=== PATIENT | male | born 1950 | race Caucasian/White ===

== ENCOUNTER → 2018-02-24 09:45 | Outpatient (CLI) | payer MEDICARE, SELFPAY ==
--- NOTE | 2018-02-24 | DI.RAD.S_ITS ---
PROCEDURE: XR LUMBAR SPINE 2-3V INDICATIONS: lumbar BACK PAIN TECHNIQUE: 3 views of the lumbar spine were acquired. COMPARISON: [facility], MR, L-SPINE WITHOUT CONTRAST, 02/07/2014, 15:25. [facility], CR, SPINE LUMB 2 OR 3VW, 03/02/2014, 13:31. FINDINGS: Bones: By [id number] vertebrae are present. There is levoconvex scoliosis with slight retrolisthesis at L2-3, and L4-5. No vertebral body compression fractures. No suspicious bony lesions. Reactive sclerosis at the vertebral endplates, most marked at L3-4. Multilevel disc degeneration. Facet sclerosis L5-S1. Soft tissues: Overlying bowel gas pattern is normal. No suspicious soft tissue calcifications. IMPRESSION: No acute bony abnormality. Multilevel degenerative disc disease. Dictated by: Juanjose Guzman M.D. on 02/24/2018 at 10:46 Approved by: Juanjose Guzman M.D. on 02/24/2018 at 10:55
== END ==
PROVIDERS: PCP Physician Assistant; Visit Provider Chiropractor
DX: M51.36 Other intervertebral disc degeneration, lumbar region (principal); M54.5 Low back pain
CPT/HCPCS: 72100

== ENCOUNTER → 2018-03-15 09:28 | Outpatient (CLI) | payer MEDICARE, SELFPAY ==
[2018-03-15 10:39] LABS: Hemoglobin A1C% w Est Avg Glu 5.4 % (4.0-6.0)
[2018-03-15 10:58] LABS: Alanine Aminotransferase 25 IU/L (21-72); Albumin 4.2 g/dL (3.5-5.0); Albumin Globulin Ratio 1.6 (1.0-2.8); Alkaline Phosphatase 32 U/L (38-126); Aspartate Aminotransferase 17 IU/L (17-59); Bilirubin Total 0.8 mg/dL (0.2-1.3); Blood Urea Nitrogen 25 mg/dL (9-20); Calcium 9.6 mg/dL (8.4-10.2); Carbon Dioxide 29 mmol/L (22-32); Chloride 101 mmol/L (98-107); Cholesterol 192 mg/dL (140-199); Estimated Glomerular Filt Rate > 60.0 mL/min (>60); Globulin 2.7 g/dL (1.7-4.1); Glucose 108 mg/dL (80-110); HDL Cholesterol 48 mg/dL (40-60); HEMOLYSIS < 15 (0-50); LDL Cholesterol Calculated 120 mg/dL (<100); Potassium 4.9 mmol/L (3.4-5.1); Sodium 141 mmol/L (137-145); Total Protein 6.9 g/dL (6.3-8.2); Triglycerides 119 mg/dL (35-150); Uric Acid 5.1 mg/dL (3.5-8.5)
[2018-03-15 13:48] LABS: Creatinine Urine Random 93.1 mg/dL
[2018-03-15 13:53] LABS: Microalbumi Creatinin Ratio Ur 6.4 ug/mg CR (<30); Microalbumin Urine Random < 0.6 mg/dL (0-1.6)
== END ==
PROVIDERS: PCP Physician Assistant; Visit Provider Physician Assistant
DX: N28.9 Disorder of kidney and ureter, unspecified (principal); I10 Essential (primary) hypertension; E78.5 Hyperlipidemia, unspecified; E11.9 Type 2 diabetes mellitus without complications
CPT/HCPCS: 36415; 80053; 80061; 82043; 82570; 83036; 84550

== ENCOUNTER 2018-05-09 20:53 | Emergency (ER) | payer MEDICARE, SELFPAY ==
[2018-05-09 20:56] VITALS: BP 159/72; PULSE 46; RESP 14; TEMP 36.9; O2SAT 97; BMI 28.7
--- NOTE | 2018-05-09 21:06 | ED.MALEGU ---
HPI - Male Genitourinary General Chief complaint: Urogenital-Male Stated complaint: PELVIC PAIN Time Seen by Provider: 05/09/18 21:06 Source: patient Mode of arrival: ambulatory Limitations: no limitations History of Present Illness HPI Narrative: 67-year-old male presents with his in the chief complaint of suprapubic discomfort over the past few days. He states it is worse when he moves and improves with rest. He denies any dysuria, frequency or urgency. He denies fever nor chills. He has seen his primary care provider whom ordered a CT scan as an outpatient for the evaluation of this pain. Onset (ago): day(s) Duration: constant Location: abdomen Severity: moderate Quality: aching Relieving factors: rest Exacerbating factors: movement Related Data Previous Rx's Medication Instructions Recorded Glucose: Test Strips str QDAY #100 06/04/17 eszopiclone 3 mg tablet 3 mg PO HS #90 tab 02/24/18 baclofen 20 mg tablet 20 mg PO HSP PRN #30 tab 04/08/18 ciprofloxacin HCl [Cipro] 500 mg PO BID 14 Days #28 tab 05/09/18 hydrocodone-acetaminophen 1 tab PO Q4-6H PRN #14 tab 05/09/18 metronidazole [Flagyl] 500 mg PO QID 14 Days #56 tab 05/09/18 ondansetron [Zofran ODT] 4 mg PO Q6-8H PRN #20 tab 05/09/18 Allergies Allergy/AdvReac Type Severity Reaction Status Date / Time No Known Drug Allergies Allergy Verified 05/09/18 20:59 Review of Systems Review of Systems All systems reviewed & are unremarkable except as noted in HPI and below Constitutional Denies chills, Denies fever(s), Denies lethargy and Denies weakness Eyes Denies change in vision, Denies eye discharge, Denies irritation and Denies loss of vision ENT Ears, Nose, Mouth, and Throat: Denies change in voice, Denies neck pain and Denies sore throat Cardiovascular Denies chest pain, Denies irregular heart rhythm, Denies lightheadedness, Denies palpitations, Denies dyspnea, Denies dyspnea on exertion and Denies orthopnea Respiratory Denies cough, Denies dyspnea, Denies dyspnea on exertion and Denies wheezing Gastrointestinal Gastrointestinal: Reports abdominal pain, Denies change in bowel habits, Denies diarrhea, Reports nausea and Denies vomiting Genitourinary Denies hematuria, Denies flank pain, Denies urinary incontinence and Denies urinary urgency Musculoskeletal Denies neck pain Integumentary/Breasts Denies pruritus, Denies erythema, Denies rash and Denies wounds Neurologic Denies confusion, Denies loss of vision and Denies weakness Psychiatric Denies anxiety, Denies confusion, Denies depression, Denies homicidal ideation and Denies suicidal ideation Endocrine Denies palpitations Hematologic/Lymphatic Denies easy bruising Allergic/Immunologic Denies wheezing [facility] Medical History Diabetes (Chronic 2009) Diverticular disease (Chronic 2006) Hypertension (Chronic 2006) Low back pain (Chronic 1999) Restless leg syndrome (Chronic) Actinic keratosis (Resolved) Melanoma (Resolved 2009) Surgical History Status post cholecystectomy (2014) Status post hernia repair Family History Father No problems noted. Mother No problems noted. Grandfather No problems noted. Grandmother No problems noted. Grandfather No problems noted. Grandmother No problems noted. Social History Smoking Status: Former smoker Tobacco: How many years used: 20 second hand exposure: No alcohol intake: current (vodka martini once a day) substance use type: does not use Exam Narrative Exam Narrative: GENERAL: This is a well-nourished, well-developed patient, in mild distress. HEAD: Atraumatic. Normocephalic. No temporal or scalp tenderness. EYES: Pupils equal round and reactive. Extraocular motions intact. No scleral icterus. No injection or drainage. ENT: Nose without bleeding, purulent drainage or septal hematoma. Throat without erythema, tonsillar hypertrophy or exudate. Uvula midline. Airway patent. NECK: Trachea midline. No JVD or lymphadenopathy. Supple, nontender, no meningeal signs. CARDIOVASCULAR: Regular rate and rhythm without murmurs, gallops, or rubs. RESPIRATORY: Clear to auscultation. Breath sounds equal bilaterally. No wheezes, rales, or rhonchi. GASTROINTESTINAL: Abdomen soft, mild suprapubic tenderness, nondistended. No hepato-splenomegaly, or palpable masses. No guarding. EXTREMITIES: No clubbing, cyanosis, or edema. No joint tenderness, effusion, or edema noted. BACK: Nontender without deformity or crepitance. No flank tenderness. NEURO: AOx3. SKIN: No rash or erythema. Initial Vital Signs Initial Vital Signs: Vital Signs Temperature 98.4 F 05/09/18 20:56 Pulse Rate 46 L 05/09/18 20:56 Respiratory Rate 14 05/09/18 20:56 Blood Pressure 159/72 H 05/09/18 20:56 Pulse Oximetry 97 05/09/18 20:56 Course Orders Ordered: ED Orders 05/09/18 22:06 CT abdomen pelvis w con Stat Discontinued Medications Hydrocodone Bitart/Acetaminophen (Vicodin Prepack) 1 bottle MISC SEEINSTR ONE Stop: 05/09/18 23:08 Last Admin: 05/09/18 23:26 Dose: 1 bottle Hydromorphone HCl (Dilaudid) 0.5 mg IV NOW ONE Stop: 05/09/18 22:06 Last Admin: 05/09/18 22:35 Dose: 0.5 mg Sodium Chloride (Normal Saline 0.9%) 1,000 mls @ 1,000 mls/hr IV BOLUS ONE Stop: 05/09/18 22:06 Last Infusion: 05/09/18 22:18 Dose: 0 mls/hr Admin: 05/09/18 21:19 Dose: 1,000 mls/hr Levofloxacin (Levaquin) 500 mg PO NOW ONE Stop: 05/09/18 23:08 Last Admin: 05/09/18 23:25 Dose: 500 mg Metronidazole (Metronidazole) 500 mg PO NOW ONE Stop: 05/09/18 23:08 Last Admin: 05/09/18 23:25 Dose: 500 mg Ondansetron HCl (Zofran) 4 mg IV Q4HR PRN PRN Reason: Nausea And Vomiting Last Admin: 05/09/18 22:36 Dose: 4 mg Ondansetron HCl (Zofran Odt Prepack) 1 bottle MISC SEEINSTR ONE Stop: 05/09/18 23:08 Last Admin: 05/09/18 23:26 Dose: 1 bottle Vital Signs - 8 hr 05/09/18 23:39 Temperature 98.2 F Pulse Rate 59 L Respiratory Rate 19 Blood Pressure 132/68 Pulse Oximetry 99 MDM - Male Genitourinary Differential Diagnosis Likely urinary tract infection, urethritis, epididymitis, prostatitis and acute retention of urine Medical Records Attestation: I reviewed the patient's medical records. Lab Data Attestation: I reviewed the patient's lab results. Result diagrams: 05/09/18 21:15 05/09/18 21:15 Lab Results 05/09/18 05/09/18 Range/Units 21:15 21:15 WBC 9.5 (4.5-11.0) X10^3/uL RBC 4.75 (4.5-5.9) X10^6/uL Hgb 14.7 (13.5-17.5) g/dL Hct 43.1 (41-53) % MCV 90.9 (80-100) fL MCH 31.0 (26-34) PG MCHC 34.1 (30-36) % RDW 14.4 (11.6-14.8) % Plt Count 177 (150-400) X10^3/uL Neut % (Auto) 74.8 (50-75) % Lymph % (Auto) 12.5 L (25-40) % [place] % (Auto) 10.5 (3-14) % Eos % (Auto) 1.4 L (2-4) % Baso % (Auto) 0.8 (0-2) % Neut # (Auto) 7100 H (3484-4089) /uL Sodium 146 H (137-145) mmol/L Potassium 4.2 (3.4-5.1) mmol/L Chloride 108 H (98-107) mmol/L Carbon Dioxide 25 (22-32) mmol/L BUN 29 H (9-20) mg/dL Creatinine 0.90 (0.66-1.25) mg/dL Estimated GFR > 60.0 (>60) mL/min BUN/Creatinine Ratio 32.2 H (6-22) Glucose 107 (80-110) mg/dL Calcium 8.9 (8.4-10.2) mg/dL Total Bilirubin 0.5 (0.2-1.3) mg/dL AST 19 (17-59) IU/L ALT 22 (21-72) IU/L Alkaline Phosphatase 37 L (38-126) U/L Total Protein 6.7 (6.3-8.2) g/dL Albumin 4.0 (3.5-5.0) g/dL Globulin 2.7 (1.7-4.1) g/dL Albumin/Globulin Ratio 1.5 (1.0-2.8) Lipase 68 (23-300) U/L Urine Dip Bedside Urine Glucose Negative Bedside Urine Bilirubin - Negative Bedside Urine Ketone - Negative Urine Specific [place] 1.030 Bedside Urine Occult Blood - Negative Bedside Urine pH 5.5 Bedside Urine Protein - Negative Bedside Urine Urobilinogen - Negative Bedside Urine Nitrite - Negative Bedside Urine Leukocytes - Negative Esterase Imaging Data CT scan - abdomen: Radiologist's impression: Diverticulitis overlying bladder, no abscess or perforation Discharge Plan Departure Patient Disposition: Home Clinical Impression: Diverticulitis Discharge Date/Time: 05/09/18 23:40 Interventions: ED Discharge Assessment Last Done: 05/09/18 23:39 Instructions: DI for Diverticulitis Activity Restrictions/Additional Instructions: *You have been diagnosed with [ diverticulitis ] *What to do: *Take medications as directed *Follow up with your primary care provider in 2-3 days, call for an appointment. Let them know you were seen in the Emergency Department and that we ask that you be seen in follow up *Return to ER if you should have any new, worsening or concerning symptoms, such as [worsening pain, fever over 101F, persistent vomiting ] Prescriptions: New hydrocodone-acetaminophen 5-325 mg tablet 1 tab PO Q4-6H PRN (Reason: pain) Qty: 14 RF: 0 metronidazole [Flagyl] 500 mg tablet 500 mg PO QID 14 Days Qty: 56 RF: 0 ciprofloxacin HCl [Cipro] 500 mg tablet 500 mg PO BID 14 Days Qty: 28 RF: 0 ondansetron [Zofran ODT] 4 mg tablet,disintegrating 4 mg PO Q6-8H PRN (Reason: nausea and vomiting) Qty: 20 RF: 0 No Action eszopiclone [Lunesta] 3 mg tablet 3 mg PO HS Qty: 90 RF: 3 Glucose: Test Strips QDAY Qty: 100 RF: 3 baclofen 20 mg tablet 20 mg PO HSP PRN (Reason: muscle spasm) Qty: 30 RF: 3 Referrals: Samara Castro PA-C [Primary Care Provider] -
[2018-05-09] MEDS: SODIUM CHLORIDE 0.9% 1,000 ML 1000 ML IV (21:19)
[2018-05-09 21:26] LABS: Add Manual Diff / Slide Review NO; Basophils Percent Auto 0.8 % (0-2); Eosinophils Percent Auto 1.4 % (2-4); Hematocrit 43.1 % (41-53); Hemoglobin 14.7 g/dL (13.5-17.5); Lymphocytes Percent Auto 12.5 % (25-40); Mean Corpuscular HGB Conc 34.1 % (30-36); Mean Corpuscular Volume 90.9 fL (80-100); Monocytes Percent Auto 10.5 % (3-14); Neutrophils Absolute Auto 7100 /uL (3000-5900); Neutrophils Percent Auto 74.8 % (50-75); Platelet Count 177 X10^3/uL (150-400); Red Blood Cell Count 4.75 X10^6/uL (4.5-5.9); Red Cell Distribution Width 14.4 % (11.6-14.8); White Blood Cell Count 9.5 X10^3/uL (4.5-11.0)
[2018-05-09 21:35] LABS: Alanine Aminotransferase 22 IU/L (21-72); Albumin Globulin Ratio 1.5 (1.0-2.8); Alkaline Phosphatase 37 U/L (38-126); Aspartate Aminotransferase 19 IU/L (17-59); BUN Creatinine Ratio 32.2 (6-22); Bilirubin Total 0.5 mg/dL (0.2-1.3); Blood Urea Nitrogen 29 mg/dL (9-20); Calcium 8.9 mg/dL (8.4-10.2); Carbon Dioxide 25 mmol/L (22-32); Chloride 108 mmol/L (98-107); Estimated Glomerular Filt Rate > 60.0 mL/min (>60); Globulin 2.7 g/dL (1.7-4.1); Glucose 107 mg/dL (80-110); HEMOLYSIS 18 (0-50); Lipase 68 U/L (23-300); Potassium 4.2 mmol/L (3.4-5.1); Sodium 146 mmol/L (137-145); Total Protein 6.7 g/dL (6.3-8.2)
--- NOTE | 2018-05-09 22:06 | DI.CT.S_ITS ---
PROCEDURE: CT ABDOMEN PELVIS W CON INDICATIONS: severe suprapubic pain TECHNIQUE: After the administration of intravenous contrast, 5 mm thick sections acquired from the diaphragm to the symphysis. 5 mm coronal and sagittal reformats were acquired. For radiation dose reduction, the following was used: automated exposure control, adjustment of mA and/or kV according to patient size. COMPARISON: [facility], US, RENAL COMPLETE, 03/11/2017, 9:17. [facility], CT, ABDOMEN/PELVIS WITH CONTRAST, 07/26/2010, 8:59. FINDINGS: Image quality: Excellent. ABDOMEN: Lung bases: Lung bases are clear. Heart size is normal. Solid organs: Liver is normal in size and enhancement. Hepatic steatosis is seen. Gallbladder is within normal limits. Biliary system is non dilated. Pancreas enhances normally. Spleen is normal in size and enhancement. No adrenal nodules. Kidneys demonstrate normal size and enhancement, without hydronephrosis. Multiple bilateral renal cysts are seen measures up to 2.6 x 2.4 cm in size in mid to lower pole of right kidney. Peritoneum and bowel: There is no evidence of bowel obstruction. Extensive wall thickening with pericolonic fat stranding involving the proximal to midportion of sigmoid colon is seen. Numerous sigmoid diverticuli are noted. Finding is consistent with acute diverticulitis. No abscess collection is seen. No definite extraluminal air. No free fluid or free air. Sliding hernia is seen. No other area of abnormal bowel wall thickening. Nodes and vessels: No retroperitoneal or mesenteric adenopathy by size criteria. Aorta and inferior vena cava are normal in size. Miscellaneous: Small periumbilical hernia is seen containing fat only. PELVIS: Genitourinary: There is mild diffuse bladder wall thickening. Enlarged prostate gland with mild mass effect of floor of urinary bladder is seen. Miscellaneous: No inguinal hernias or adenopathy. Bones: No suspicious bony lesions. No vertebral body compression fractures. IMPRESSION: 1. Finding is consistent with acute diverticulitis involving proximal to mid sigmoid colon. No abscess collection or gross free fluid or free air. 2. Hepatic steatosis. Prior cholecystectomy. No significant discrepancies. Dictated by: Jae Meyer M.D. on 05/10/2018 at 8:31 Approved by: Jae Meyer M.D. on 05/10/2018 at 8:47
[2018-05-09] MEDS: HYDROMORPHONE 0.5 MG INJ IV (22:35)
[2018-05-09] MEDS: ONDANSETRON 4 MG/2 ML INJ IV (22:36)
[2018-05-09 22:48] VITALS: BP 121/75; PULSE 75; RESP 14; O2SAT 100
[2018-05-09] MEDS: metroNIDAZOLE 250 MG TABLET 500 MG PO (23:25)
[2018-05-09] MEDS: levoFLOXacin 500 MG TABLET PO (23:25)
[2018-05-09] MEDS: HYDROCODONE/ACET 5/325 PREPACK 1 BOTTLE MISC (23:26)
[2018-05-09] MEDS: ONDANSETRON 4 MG ODT PREPACK 1 BOTTLE MISC (23:26)
[2018-05-09 23:39] VITALS: BP 132/68; PULSE 59; RESP 19; TEMP 36.8; O2SAT 99
== END 2018-05-09 23:40 | disposition home or self-care (01) ==
PROVIDERS: Emergency Provider Emergency Medicine; PCP Physician Assistant
DX: K57.92 Diverticulitis of intestine, part unspecified, without perforation or abscess without bleeding (principal)
CPT/HCPCS: 36591; 51798; 74177; 80053; 81003; 83690; 85025; 96361; 96374; 96375; 99283; 99285; J1170; J2405; Q9967

== ENCOUNTER → 2018-05-11 07:31 | Outpatient (CLI) | payer MEDICARE, SELFPAY ==
[2018-05-11 09:08] LABS: Hemoglobin A1C% w Est Avg Glu 5.4 % (4.0-6.0)
[2018-05-11 09:16] LABS: BUN Creatinine Ratio 14.4 (6-22); Blood Urea Nitrogen 13 mg/dL (9-20); Calcium 8.8 mg/dL (8.4-10.2); Carbon Dioxide 30 mmol/L (22-32); Chloride 101 mmol/L (98-107); Estimated Glomerular Filt Rate > 60.0 mL/min (>60); Glucose 99 mg/dL (80-110); HEMOLYSIS < 15 (0-50); Potassium 4.6 mmol/L (3.4-5.1); Sodium 141 mmol/L (137-145)
== END ==
PROVIDERS: PCP Physician Assistant; Visit Provider Physician Assistant
DX: E11.9 Type 2 diabetes mellitus without complications (principal); I10 Essential (primary) hypertension; N28.9 Disorder of kidney and ureter, unspecified
CPT/HCPCS: 36415; 80048; 83036

== ENCOUNTER → 2018-05-12 16:32 | Outpatient (CLI) | payer MEDICARE, SELFPAY ==
--- NOTE | 2018-05-12 16:35 | DI.RAD.S_ITS ---
PROCEDURE: XR ACUTE ABDOMEN SERIES INDICATIONS: Left lower quadrant pain TECHNIQUE: One view chest and two views of the abdomen were acquired. COMPARISON: [facility], CT, CT ABDOMEN PELVIS W CON, 05/09/2018, 22:07. FINDINGS: Surgical changes and devices: Clips within the right upper quadrant are suggestive of prior cholecystectomy. Chest: Lungs are clear. Heart size is normal. No pleural effusions. No pneumoperitoneum. Abdomen: Bowel gas pattern is normal. No air-filled distended small bowel loops are identified demonstrating air-fluid levels. Moderate residual stool is seen within the proximal colon. No suspicious calcifications. Visualized solid organ contours appear normal. Bones: No suspicious bony lesions. Degenerative changes of the spine and shoulders as well as the sacroiliac joints and hips are present, not completely evaluated. There is a levoconvex curvature of the lumbar spine. IMPRESSION: 1. No bowel obstruction. 2. Possible mild chronic constipation. 3. No acute cardiopulmonary process is evident. Dictated by: Marques Maki M.D. on 05/12/2018 at 16:17 Approved by: Marques Maki M.D. on 05/12/2018 at 16:18
[2018-05-12 16:50] LABS: Bacteria Urine None Seen; RBC Urine None Seen (0-5/HPF)
[2018-05-12 17:25] LABS: Appearance Urine UA CLEAR; Bilirubin Urine UA NEGATIVE (NEGATIVE); Color Urine UA YELLOW; Glucose Urine UA NEGATIVE (Normal); Ketones Urine UA 1+ (NEGATIVE); Leukocyte Esterase Urine UA NEGATIVE (NEGATIVE); Nitrite Urine UA Negative (Negative); Occult Blood Urine UA NEGATIVE (Negative); Protein Urine UA NEGATIVE (Negative); Urobilinogen Urine UA 0.2 E.U./dL (0.2)
[2018-05-12 17:26] LABS: Add Manual Diff / Slide Review NO; Basophils Percent Auto 0.5 % (0-2); Eosinophils Percent Auto 1.2 % (2-4); Hematocrit 43.5 % (41-53); Hemoglobin 14.8 g/dL (13.5-17.5); Lymphocytes Percent Auto 22.3 % (25-40); Mean Corpuscular HGB Conc 34.1 % (30-36); Monocytes Percent Auto 12.3 % (3-14); Neutrophils Absolute Auto 4300 /uL (3000-5900); Neutrophils Percent Auto 63.7 % (50-75); Platelet Count 199 X10^3/uL (150-400); Red Blood Cell Count 4.78 X10^6/uL (4.5-5.9); Red Cell Distribution Width 14.2 % (11.6-14.8); White Blood Cell Count 6.7 X10^3/uL (4.5-11.0)
[2018-05-12 17:39] LABS: Amorphous Sediment Urine 1+; Culture Indicated Urine Cult Not Indicated; Squamous Epithelial Cell Urine 0-1 /HPF; WBC Urine 0-1/HPF (0-5/HPF)
[2018-05-12 18:23] LABS: Prostate Specific Antigen Scrn 0.803 ng/mL (0.1-4.0)
== END ==
PROVIDERS: PCP Physician Assistant; Visit Provider Physician Assistant
DX: R10.32 Left lower quadrant pain (principal); K57.32 Diverticulitis of large intestine without perforation or abscess without bleeding; I10 Essential (primary) hypertension
CPT/HCPCS: 36415; 74022; 81001; 85025; G0103

== ENCOUNTER 2018-05-18 15:06 | Observation (INO) | payer MEDICARE, SELFPAY ==
[2018-05-18] VITALS (8 sets, daily range): BP systolic 101–124; BP diastolic 59–83; PULSE 42–93; RESP 14–23; TEMP 36.7–37.1; O2SAT 94–98; BMI 27.9
--- NOTE | 2018-05-18 15:33 | DI.RAD.S_ITS ---
PROCEDURE: XR CHEST 1V INDICATIONS: chest pain TECHNIQUE: One view of the chest was acquired. COMPARISON: [facility], , CHEST 1 VIEW, 12/31/2017, 15:02. FINDINGS: Surgical changes and devices: None. Lungs and pleura: No pleural effusions or pneumothorax. Lungs are clear. Mediastinum: Mediastinal contours appear normal. Heart size is normal. Bones and chest wall: No suspicious bony lesions. Overlying soft tissues appear unremarkable. IMPRESSION: No acute pulmonary process. Dictated by: Florencia Luna M.D. on 05/18/2018 at 14:51 Approved by: Florencia Luna M.D. on 05/18/2018 at 14:51
--- NOTE | 2018-05-18 15:35 | ED.CHESTPAIN ---
HPI - Chest Pain General Chief Complaint: Chest Pain Stated Complaint: chest pain Time Seen by Provider: 05/18/18 15:26 Source: patient Mode of arrival: ambulatory Limitations: no limitations History of Present Illness HPI narrative: Patient is a 67-year-old male who presents with chest pain. It started [place]. He was able to continue walking to the house where he sat down in his chest pain improved, but did not go away. It is on the left side nonradiating he felt very short of breath and now he is here in the emergency department. He has never had anything like this happen before. He denies lifting anything heavy. His chest pain has improved but is still there. He took aspirin prior to arrival. Pain he says is almost gone now. MD complaint: chest pain Onset (ago): minute(s) Duration: constant Onset: during exertion Pain location: left chest Severity: moderate Quality: tightness Pain radiation: none Relieving factors: rest Exacerbating factors: exertion Treatments prior to arrival chest pain: aspirin Related Data Home Medications Medication Instructions Recorded Confirmed Enymes 1 supp PO DIRECTED 05/18/18 05/18/18 Glucose: Test Strips 1 str MISCELLANEOUS QDAY 05/18/18 05/18/18 hydrocodone-acetaminophen 1 - 2 tab PO Q4-6H PRN 05/18/18 05/18/18 metformin 1,000 mg PO .ONCE 05/18/18 05/18/18 Previous Rx's Medication Instructions Recorded eszopiclone 3 mg tablet 3 mg PO HS #90 tab 02/24/18 baclofen 20 mg tablet 20 mg PO HSP PRN #30 tab 04/08/18 Allergies Allergy/AdvReac Type Severity Reaction Status Date / Time No Known Drug Allergies Allergy Verified 05/12/18 15:46 Review of Systems Review of Systems GENERAL: Denies chills, fatigue, malaise, fever, sweats, travel HEENT: Denies sinus pain, ear pain, sore throat, difficulty swallowing, neck pain RESPIRATORY: Denies dyspnea, cough, wheezing, hemoptysis, sputum. CARDIOVASCULAR: See HPI GASTROINTESTINAL: Denies nausea, vomiting, abdominal pain, diarrhea, constipation, melena. : Denies dysuria, frequency, incontinence, hematuria, urinary retention, flank pain. MUSCULOSKELETAL: Denies weakness, joint pain, or bony pain SKIN: No rash, no erythema, no pruritus NEUROLOGIC: Denies weakness, dizziness, headache, numbness, change in speech, confusion PSYCHIATRIC: No concerning psychosocial issues. 12 point review of systems is negative except for those stated above and HPI [facility] Medical History Diabetes (Chronic 2009) Diverticular disease (Chronic 2006) Hypertension (Chronic 2006) Low back pain (Chronic 1999) Restless leg syndrome (Chronic) Actinic keratosis (Resolved) Melanoma (Resolved 2009) Social History Smoking Status: Former smoker Tobacco: How many years used: 20 second hand exposure: No alcohol intake: current (vodka martini once a day) substance use type: does not use Exam Initial Vital Signs Initial Vital Signs: Vital Signs Temperature 98.8 F 05/18/18 15:08 Pulse Rate 84 05/18/18 15:08 Respiratory Rate 14 05/18/18 15:08 Blood Pressure 114/70 05/18/18 15:08 Pulse Oximetry 97 05/18/18 15:08 GENERAL: Alert middle-aged male no acute distress HEENT: Head atraumatic,EOMI, pupils reactive, face symmetric, CARDIOVASCULAR: Regular rate and rhythm without murmurs, rubs or gallops. Pain is not reproducible with palpation or left arm movement RESPIRATORY: Breath sounds equal bilaterally, no wheezes rales or rhonchi. ABDOMEN: Soft, nontender. Normoactive bowel sounds all 4 quadrants. No guarding or rebound. EXTREMITIES: Normal range of motion, no clubbing or edema. Neurovascularly intact NEUROLOGICAL: Alert and oriented x4.Normal gait and speech. Cranial nerves II through XII grossly intact. SKIN: Warm, dry, no laceration, no petechiae, no rashes or lesions. Scores HEART Score Heart Score history: Highly Suspicious Heart Score EKG: Normal Heart Score Age: > or = 65 years old Heart Score risk factors: 1-2 risk factors Heart Score troponin: < or = to normal limit Heart Score Total: 5 Course Orders Ordered: ED Orders 05/18/18 15:15 B Type Natriuretic Peptide Stat Complete Blood Count AUTO DIFF Stat Comprehensive Metabolic Panel Stat Lipase Stat Partial Thromboplastin Time Stat Prothrombin Time INR Stat Troponin & CK Cardiac Panel Stat 09/11/18 15:33 XR chest 1V Stat EKG-12 Lead Stat Nitroglycerin (Nitrostat) 0.4 mg SL [id number] PRN PRN Reason: Chest Pain Last Admin: 05/18/18 15:48 Dose: 0.4 mg Vital Signs - 8 hr 05/18/18 15:08 05/18/18 15:48 05/18/18 15:49 Temperature 98.8 F Pulse Rate 84 88 86 Respiratory Rate 14 23 Blood Pressure 114/70 114/81 Blood Pressure [Left Arm] 117/81 Pulse Oximetry 97 94 05/18/18 16:09 Temperature Pulse Rate 93 H Respiratory Rate Blood Pressure 101/78 Blood Pressure [Left Arm] Pulse Oximetry MDM - Chest Pain Lab Data Attestation: I reviewed the patient's lab results. Result diagrams: 05/18/18 15:15 05/18/18 15:15 Lab Results 05/18/18 05/18/18 05/18/18 Range/Units 15:15 15:15 15:15 WBC 6.8 (4.5-11.0) X10^3/uL RBC 5.09 (4.5-5.9) X10^6/uL Hgb 15.6 (13.5-17.5) g/dL Hct 45.6 (41-53) % MCV 89.6 (80-100) fL MCH 30.6 (26-34) PG MCHC 34.2 (30-36) % RDW 13.7 (11.6-14.8) % Plt Count 284 (150-400) X10^3/uL Neut % (Auto) 63.5 (50-75) % Lymph % (Auto) 22.6 L (25-40) % [place] % (Auto) 11.7 (3-14) % Eos % (Auto) 1.5 L (2-4) % Baso % (Auto) 0.7 (0-2) % Neut # (Auto) 4300 (7716-2904) /uL PT 12.0 (10.1-12.7) SECONDS INR 1.1 (0.9-1.3) APTT 31 (26.4-36.2) SECONDS Sodium 143 (137-145) mmol/L Potassium 4.5 (3.4-5.1) mmol/L Chloride 103 (98-107) mmol/L Carbon Dioxide 29 (22-32) mmol/L BUN 23 H (9-20) mg/dL Creatinine 1.20 (0.66-1.25) mg/dL Estimated GFR > 60.0 (>60) mL/min BUN/Creatinine Ratio 19.2 (6-22) Glucose 110 (80-110) mg/dL Calcium 9.4 (8.4-10.2) mg/dL Total Bilirubin 0.4 (0.2-1.3) mg/dL AST 22 (17-59) IU/L ALT 24 (21-72) IU/L Alkaline Phosphatase 31 L (38-126) U/L Total Creatine Kinase 84 (55-170) U/L CK-MB (CK-2) TNP Troponin I < 0.012 (0.01-0.034) ng/mL B-Natriuretic Peptide < 100.0 (<100) Total Protein 7.3 (6.3-8.2) g/dL Albumin 4.3 (3.5-5.0) g/dL Globulin 3.0 (1.7-4.1) g/dL Albumin/Globulin Ratio 1.4 (1.0-2.8) Lipase 97 (23-300) U/L ECG Data Attestation: I personally reviewed and interpreted this ECG as follows: Prior ECG tracings: available for review Interpretation: EKG 1. Normal sinus rhythm rate [address] elevations no T-wave inversions similar to previous EKG in December 2017 EKG 2. Sinus rhythm rate 92 similar to previous no changes MDM Narrative Medical decision making narrative: Patient's symptoms are concerning for cardiac or angina. Dr. Alexandra has been updated on symptoms and test results and accepts observation. Discharge Plan Departure Patient Disposition: Admitted as Observation Clinical Impression: Chest pain Admit Date/Time: 05/18/18 16:46 Admit Provider: Sanjuana Alexandra
[2018-05-18 15:41] LABS: Add Manual Diff / Slide Review NO; Basophils Percent Auto 0.7 % (0-2); Eosinophils Percent Auto 1.5 % (2-4); Hematocrit 45.6 % (41-53); Hemoglobin 15.6 g/dL (13.5-17.5); Lymphocytes Percent Auto 22.6 % (25-40); Mean Corpuscular HGB Conc 34.2 % (30-36); Mean Corpuscular Hemoglobin 30.6 PG (26-34); Mean Corpuscular Volume 89.6 fL (80-100); Monocytes Percent Auto 11.7 % (3-14); Neutrophils Absolute Auto 4300 /uL (3000-5900); Neutrophils Percent Auto 63.5 % (50-75); Platelet Count 284 X10^3/uL (150-400); Red Blood Cell Count 5.09 X10^6/uL (4.5-5.9); Red Cell Distribution Width 13.7 % (11.6-14.8); White Blood Cell Count 6.8 X10^3/uL (4.5-11.0)
[2018-05-18 15:42] LABS: INR 1.1 (0.9-1.3)
[2018-05-18 15:45] LABS: PTT Partial Thromboplastin Tim 31 SECONDS (26.4-36.2)
[2018-05-18 15:47] LABS: Alanine Aminotransferase 24 IU/L (21-72); Albumin 4.3 g/dL (3.5-5.0); Albumin Globulin Ratio 1.4 (1.0-2.8); Alkaline Phosphatase 31 U/L (38-126); Aspartate Aminotransferase 22 IU/L (17-59); BUN Creatinine Ratio 19.2 (6-22); Bilirubin Total 0.4 mg/dL (0.2-1.3); Blood Urea Nitrogen 23 mg/dL (9-20); Calcium 9.4 mg/dL (8.4-10.2); Carbon Dioxide 29 mmol/L (22-32); Chloride 103 mmol/L (98-107); Creatine Kinase 84 U/L (55-170); Estimated Glomerular Filt Rate > 60.0 mL/min (>60); Glucose 110 mg/dL (80-110); HEMOLYSIS < 15 (0-50); Lipase 97 U/L (23-300); Potassium 4.5 mmol/L (3.4-5.1); Sodium 143 mmol/L (137-145); Total Protein 7.3 g/dL (6.3-8.2)
[2018-05-18] MEDS: NITROGLYCERIN 0.4 MG SL TAB SL (15:48)
[2018-05-18 16:03] LABS: Troponin I < 0.012 ng/mL (0.01-0.034)
[2018-05-18 16:05] LABS: B Type Natriuretic Peptide < 100.0 (<100)
--- NOTE | 2018-05-18 17:50 | PM.HP.1 ---
History of Present Illness Date Patient Seen: 05/18/18 Chief complaint: chest pain Narrative: Patient is a 67 y/o male with a prior history of diabetes and hypertension, who lost 60 pounds last year and no longer requires treatment. He was walking up hill today when he developed substernal chest pressure rated 5/10 in intensity that lasted 20 minutes. The pain did not radiate, was not associated with nausea, diaphoresis, palpitations or syncope. The patient took one asa with near complete resolution. He recieved 1 nitro upon arrival to the emergency department with complete resolution of his symptoms. He has no prior history of chest pain, he was previously treated for diabetes and hypertension. His initial enzymes are negative and his EKG did not reveal any acute changes. He is placed in observation for evaluation of chest pain. Patient History Medical History Diabetes (Chronic 2009) Diverticular disease (Chronic 2006) Hypertension (Chronic 2006) Low back pain (Chronic 1999) Restless leg syndrome (Chronic) Actinic keratosis (Resolved) Melanoma (Resolved 2009) Surgical History Status post cholecystectomy (2014) Status post hernia repair Family & Social History Family History: Reviewed 05/10/18 by Ken Kirkland DO Family history unavailable: Yes Social History: household members spouse Prior Living Arrangements House Safety & Behavioral: Feels Safe in Current Yes Environment Been Physically Hurt or No Threatened By a Person Suicidal Ideation Description None Suicide Plan Description No Plan Tobacco & Substance use: Smoking Status Former smoker alcohol intake current alcohol intake frequency 0-2 drinks per day Substance Use Type does not use Meds Home Medications Medication Instructions Recorded Confirmed Type eszopiclone 3 mg tablet 3 mg PO HS #90 tab 02/24/18 05/18/18 Rx baclofen 20 mg tablet 20 mg PO HSP PRN #30 tab 04/08/18 05/18/18 Rx Enymes 1 supp PO DIRECTED 05/18/18 05/18/18 History Glucose: Test Strips 1 str MISCELLANEOUS QDAY 05/18/18 05/18/18 History hydrocodone-acetaminophen 1 - 2 tab PO Q4-6H PRN 05/18/18 05/18/18 History metformin 1,000 mg PO PRN PRN 05/18/18 05/18/18 History Allergies Allergy/AdvReac Type Severity Reaction Status Date / Time No Known Drug Allergies Allergy Verified 05/12/18 15:46 Review of Systems Review of Systems All systems reviewed & are unremarkable except as noted in HPI and below Exam Vital Signs (past 8 hours): - 05/18/18 15:08 05/18/18 15:48 05/18/18 15:49 Temperature 98.8 F Pulse Rate 84 88 86 Respiratory Rate 14 23 Blood Pressure 114/70 114/81 Blood Pressure [Left Arm] 117/81 Pulse Oximetry 97 94 05/18/18 16:09 05/18/18 16:45 Temperature Pulse Rate 93 H 42 L Respiratory Rate 17 Blood Pressure 101/78 Blood Pressure [Left Arm] 123/83 Pulse Oximetry 96 Oxygen Delivery Method Room Air Narrative Exam Narrative: HEENT: NC/AT, EOMI, ORopharyx clear, neck supple no adenopathy or carotid bruits Lungs: Clear to auscultation CV: RRR nl Sl S2 Abd: soft/ non tender non distended no HSM Ext: no edema Neuro: non focal Skin: no lesions Psychiatry: no hallucinations, delusions, or psychoses Objective Labs Result Diagrams: 05/18/18 15:15 05/18/18 15:15 Labs: Laboratory Results - last 24 hr 05/18/18 05/18/18 05/18/18 15:15 15:15 15:15 WBC 6.8 RBC 5.09 Hgb 15.6 Hct 45.6 MCV 89.6 MCH 30.6 MCHC 34.2 RDW 13.7 Plt Count 284 Neut % (Auto) 63.5 Lymph % (Auto) 22.6 L [place] % (Auto) 11.7 Eos % (Auto) 1.5 L Baso % (Auto) 0.7 Neut # (Auto) 4300 PT 12.0 INR 1.1 APTT 31 Sodium 143 Potassium 4.5 Chloride 103 Carbon Dioxide 29 BUN 23 H Creatinine 1.20 Estimated GFR > 60.0 BUN/Creatinine Ratio 19.2 Glucose 110 Calcium 9.4 Total Bilirubin 0.4 AST 22 ALT 24 Alkaline Phosphatase 31 L Total Creatine Kinase 84 CK-MB (CK-2) TNP Troponin I < 0.012 B-Natriuretic Peptide < 100.0 Total Protein 7.3 Albumin 4.3 Globulin 3.0 Albumin/Globulin Ratio 1.4 Lipase 97 Assessment & Plan (1) Chest pain: Problem details: Patient has symptoms highly suggestive of unstable angina. Will continue Asa, nitro, check lipids and get serial enzymes. IF negative cardiac stress test in the am Qualifiers: Chest pain type: other chest pain Ischemic chest pain type: Qualified Code(s): R07.89 - Other chest pain; R07.8 - Other chest pain Current visit: Yes Status: Acute (2) Diverticulitis: Problem details: Recently completed treatment with levofloxacin and flagyl Current visit: No Status: Acute (3) Mild renal insufficiency: Problem details: with weight loss - improvement in diet will follow Current visit: No Status: Resolved Quality VTE Deep Vein Thrombosis/Pulmonary Embolism Present on Admission: No
--- NOTE | 2018-05-18 18:05 | PC.ADMIT ---
[email or web address] Admission Note: The patient,Josr Sanches,67 y/o, was given written information regarding hospital policies, unit procedures and contact persons. Patient's smoking status: Former smoker. Vital Signs - 8 hr 05/18/18 15:08 05/18/18 15:48 05/18/18 15:49 Temperature 98.8 F Pulse Rate 84 88 86 Respiratory Rate 14 23 Blood Pressure 114/70 114/81 Blood Pressure [Left Arm] 117/81 Pulse Oximetry 97 94 05/18/18 16:09 05/18/18 16:45 Temperature Pulse Rate 93 H 42 L Respiratory Rate 17 Blood Pressure 101/78 Blood Pressure [Left Arm] 123/83 Pulse Oximetry 96 Pt up from er via wheelchair. pt able to ambulate independently to ac bed. tele placed by ED RN. Pt has been A&O, calm and cooperative.
[2018-05-18] MEDS: DEXTROSE 5%-0.45% NS 1,000 ML 100 ML IV (18:23)
[2018-05-18 20:40] LABS: Add Manual Diff / Slide Review NO; Eosinophils Percent Auto 2.4 % (2-4); Hematocrit 42.6 % (41-53); Hemoglobin 14.5 g/dL (13.5-17.5); Lymphocytes Percent Auto 27.4 % (25-40); Mean Corpuscular Hemoglobin 30.6 PG (26-34); Monocytes Percent Auto 12.9 % (3-14); Neutrophils Absolute Auto 3200 /uL (3000-5900); Neutrophils Percent Auto 56.3 % (50-75); Platelet Count 259 X10^3/uL (150-400); Red Blood Cell Count 4.73 X10^6/uL (4.5-5.9); Red Cell Distribution Width 13.7 % (11.6-14.8); White Blood Cell Count 5.6 X10^3/uL (4.5-11.0)
[2018-05-18 20:47] LABS: INR 1.1 (0.9-1.3); Prothrombin Time 11.8 SECONDS (10.1-12.7)
[2018-05-18 20:50] LABS: PTT Partial Thromboplastin Tim 31 SECONDS (26.4-36.2)
[2018-05-18 20:51] LABS: BUN Creatinine Ratio 21.8 (6-22); Blood Urea Nitrogen 24 mg/dL (9-20); Calcium 8.9 mg/dL (8.4-10.2); Carbon Dioxide 28 mmol/L (22-32); Chloride 103 mmol/L (98-107); Creatine Kinase 77 U/L (55-170); Estimated Glomerular Filt Rate > 60.0 mL/min (>60); Glucose 138 mg/dL (80-110); HEMOLYSIS < 15 (0-50); Potassium 3.7 mmol/L (3.4-5.1); Sodium 140 mmol/L (137-145)
[2018-05-18 21:02] LABS: Cholesterol 117 mg/dL (140-199); HDL Cholesterol 32 mg/dL (40-60); LDL Cholesterol Calculated 60 mg/dL (<100); Triglycerides 126 mg/dL (35-150)
[2018-05-18 21:05] LABS: Troponin I < 0.012 ng/mL (0.01-0.034)
[2018-05-18] MEDS: BACLOFEN 10 MG TABLET PO (21:27)
[2018-05-18] MEDS: INFLUENZA VACCINE 0.5 ML SYRINGE IM (21:33)
[2018-05-19 00:20] VITALS: BP 114/68; PULSE 60; RESP 17; TEMP 36.4; O2SAT 98
[2018-05-19] MEDS: DEXTROSE 5%-0.45% NS 1,000 ML 100 ML IV (05:00)
[2018-05-19 05:05] VITALS: BP 113/74; PULSE 72; RESP 16; TEMP 36.6; O2SAT 98
[2018-05-19 07:50] VITALS: BP 138/83; PULSE 81; RESP 15; TEMP 36.6; O2SAT 98
--- NOTE | 2018-05-19 08:30 | PM.DS.1 ---
History of Present Illness Chief complaint: chest pain Narrative: Patient is a 67 y/o male with a prior history of diabetes and hypertension, who lost 60 pounds last year and no longer requires treatment. He was walking up hill today when he developed substernal chest pressure rated 5/10 in intensity that lasted 20 minutes. The pain did not radiate, was not associated with nausea, diaphoresis, palpitations or syncope. The patient took one asa with near complete resolution. He recieved 1 nitro upon arrival to the emergency department with complete resolution of his symptoms. He has no prior history of chest pain, he was previously treated for diabetes and hypertension. His initial enzymes are negative and his EKG did not reveal any acute changes. He is placed in observation for evaluation of chest pain. Discharge Providers Date of admission: 05/18/18 16:46 Primary care physician: Samara Castro PA-C Discharge provider: Sanjuana Alexandra MD Summary Discharge Diagnosis: Chest Pain Restless leg syndrome Exam Vital Signs (past 8 hours): - 05/19/18 05:05 Temperature 97.8 F Pulse Rate 72 Respiratory Rate 16 Blood Pressure 113/74 Pulse Oximetry 98 Oxygen Delivery Method Room Air Narrative Exam Narrative: No further chest pain, Patient has no complaints Lungs: clear to auscultation CV: RRR nl Sl S2 Abd: soft/non tender non distended. no rebound tenderness or palpable masses Ext: no edema Objective Labs Result Diagrams: 05/18/18 20:32 05/18/18 20:32 Labs: Laboratory Results - last 24 hr 05/18/18 05/18/18 05/18/18 15:15 15:15 15:15 WBC 6.8 RBC 5.09 Hgb 15.6 Hct 45.6 MCV 89.6 MCH 30.6 MCHC 34.2 RDW 13.7 Plt Count 284 Neut % (Auto) 63.5 Lymph % (Auto) 22.6 L [place] % (Auto) 11.7 Eos % (Auto) 1.5 L Baso % (Auto) 0.7 Neut # (Auto) 4300 PT 12.0 INR 1.1 APTT 31 Sodium 143 Potassium 4.5 Chloride 103 Carbon Dioxide 29 BUN 23 H Creatinine 1.20 Estimated GFR > 60.0 BUN/Creatinine Ratio 19.2 Glucose 110 Calcium 9.4 Total Bilirubin 0.4 AST 22 ALT 24 Alkaline Phosphatase 31 L Total Creatine Kinase 84 CK-MB (CK-2) TNP Troponin I < 0.012 B-Natriuretic Peptide < 100.0 Total Protein 7.3 Albumin 4.3 Globulin 3.0 Albumin/Globulin Ratio 1.4 Triglycerides Cholesterol LDL Cholesterol, Calc HDL Cholesterol Lipase 97 05/18/18 05/18/18 05/18/18 20:32 20:32 20:32 WBC 5.6 RBC 4.73 Hgb 14.5 Hct 42.6 MCV 90.0 MCH 30.6 MCHC 34.0 RDW 13.7 Plt Count 259 Neut % (Auto) 56.3 Lymph % (Auto) 27.4 [place] % (Auto) 12.9 Eos % (Auto) 2.4 Baso % (Auto) 1.0 Neut # (Auto) 3200 PT 11.8 INR 1.1 APTT 31 Sodium 140 Potassium 3.7 Chloride 103 Carbon Dioxide 28 BUN 24 H Creatinine 1.10 Estimated GFR > 60.0 BUN/Creatinine Ratio 21.8 Glucose 138 H Calcium 8.9 Total Bilirubin AST ALT Alkaline Phosphatase Total Creatine Kinase 77 CK-MB (CK-2) Troponin I < 0.012 B-Natriuretic Peptide Total Protein Albumin Globulin Albumin/Globulin Ratio Triglycerides 126 Cholesterol 117 L LDL Cholesterol, Calc 60 HDL Cholesterol 32 L Lipase Discharge Plan Discharge Plan Patient Disposition: Home Discharge comment: Follow up with Dr. Castro as scheduled. Outpatient Stress test within 72 hours as scheduled Discharge Med Rec/Prescriptions Prescriptions: No Action eszopiclone [Lunesta] 3 mg tablet 3 mg PO HS Qty: 90 RF: 3 baclofen 20 mg tablet 20 mg PO HSP PRN (Reason: muscle spasm) Qty: 30 RF: 3 hydrocodone-acetaminophen 5-325 mg tablet 1 - 2 tab PO Q4-6H PRN (Reason: pain) RF: 0 Glucose: Test Strips 1 str miscellaneous QDAY RF: 0 metformin 1,000 mg Tablet,Er Marilynn.Retention 24 Hr 1,000 mg PO PRN PRN (Reason: high blood sugar) RF: 0 Enymes 1 supp PO DIRECTED RF: 0 Follow up/Referrals: Samara Castro PA-C [Primary Care Provider] - (*appt:05/20 @ 9:30 w/lexi @ [facility] [phone]) Provider Discharge Instructions Diet: Regular Activity: as tolerated Visit Report/Discharge Packet Visit Report Forms: Stroke Signs & Symptoms Discharge Data Primary Care Provider: Samara Castro Attending Provider: Sanjuana Alexandra Admit Date/Time: 05/18/18 16:46 Quality VTE Deep Vein Thrombosis/Pulmonary Embolism Present on Admission: No
[2018-05-19 08:45] VITALS: O2SAT 98
[2018-05-19 09:37] LABS: Troponin I < 0.012 ng/mL (0.01-0.034)
--- NOTE | 2018-05-19 11:30 | CM.DANOTE ---
Discharge Planning/Care Management DCP: assessment: case received, EMR reviewed and met with pt 0830. Introduced self and role. Pt is a 67 year old male who admitted to care of hospitalist team yesterday afternoon. Payer: [facility] PCP: June Castro. Pt confirms he is just waiting for the doctor to tell him he can go this morning. He already has appt set with PCP for tomorrow and will be keeping that. Says his will be here to take him home sometime this morning. CM Discharge Assessment Start: 05/19/18 11:28 Freq: Status: Active Protocol: Document 05/19/18 11:29 ITV (Rec: 05/19/18 11:30 ITV [email or web address]) Discharge Planning Assessment Advance Directives? Yes Advance Directives on File Yes History Provided By Patient Medical Record Prior Living Arrangements House Household Members spouse Independent with ADL's Yes Is patient alert and oriented? Yes Whiteboard Updated in Patient Room with Yes name and ext. # of Production Control Coordinating Clerk Review Status In Process Next Review Type Continued Stay Review Discharge Planning/Care Management CM Discharge Assessment Start: 05/19/18 11:28 Freq: Status: Active Protocol: Document 05/19/18 11:29 ITV (Rec: 05/19/18 11:30 ITV [email or web address]) Discharge Planning Assessment Advance Directives? Yes Advance Directives on File Yes History Provided By Patient Medical Record Prior Living Arrangements House Household Members spouse Independent with ADL's Yes Is patient alert and oriented? Yes Whiteboard Updated in Patient Room with Yes name and ext. # of Production Control Coordinating Clerk Review Status In Process Next Review Type Continued Stay Review
--- NOTE | 2018-05-19 11:36 | PC.NURSE ---
Day Shift- Pt A&OX4, steady gait, denies nausea, pain, chest pain with rest or activity. VSS, On telemetry monitoring, D/C'd at 1030 as pt has discharge to home. Pt aware of planning for outpatient stress test within 72hrs. Pt chose to go to [facility]. Order faxed to [phone] at [facility]. Appointment made, pt aware to have results sent to [facility] PCP office for follow up. Reviewed written and verbal discharge instructions on diet, acivity, F/U appt, pain management, prescriptions. Pt's Carmen present at bedside, No voiced concerns. Pt states is ready for discharge.
== END 2018-05-19 11:50 | disposition home or self-care (01) ==
LOC: ED 15:15 → AC 16:47
PROVIDERS: Admitting Provider Internal Medicine; Emergency Provider Emergency Medicine; Family Provider Physician Assistant; PCP Physician Assistant; Visit Provider Internal Medicine
DX: R07.89 Other chest pain (principal); Z87.891 Personal history of nicotine dependence; G25.81 Restless legs syndrome
CPT/HCPCS: 36415; 36591; 71045; 80048; 80053; 80061; 82550; 82553; 83690; 83880; 84484; 85025; 85610; 85730; 90471; 90656; 93005; 93010; 94762; 99282; 99285; G0378; Q2038

== ENCOUNTER 2019-04-25 10:36 | Day surgery (SDC) | payer MEDICARE, OTHER, SELFPAY ==
[2019-03-08 10:19] VITALS: BMI 27.9
[2019-04-15 12:07] VITALS: BMI 30.7
[2019-04-25] VITALS (8 sets, daily range): BP systolic 121–154; BP diastolic 83–100; PULSE 61–74; RESP 12–16; TEMP 36.1–36.7; O2SAT 94–97; BMI 30.8
[2019-04-25] MEDS: LACTATED RINGERS 1,000 ML 100 ML IV (11:07)
--- NOTE | 2019-04-25 12:13 | PM.PREOP ---
Pre-operative Note Interval Note History & Physical reviewed/Exam performed by Physician: Yes Changes to H&P: No H&P completed within 30 days and has changed as indicated here:: see note 03/29 for H&P
[2019-04-25] MEDS: CEFAZOLIN 2 GM/100 ML FROZ.PIGGY IV (12:20)
--- NOTE | 2019-04-25 12:43 | SUR.OPER ---
Supine on padded OR bed, head on pillow, arms secured on padded arm boards at <90 degrees abduction, legs uncrossed, safety belt at thigh, tape over blanket over lower legs.
[2019-04-25] MEDS: BUPIVACAINE 0.5% (PF) VIAL 30 ML INJ (12:48)
--- NOTE | 2019-04-25 13:55 | PM.OP.1 ---
Operative Date/Time/Diagnoses Date of procedure: 04/25/19 Time of procedure: 13:55 Pre-op diagnosis: Incisional ventral hernia at the umbilicus Post-op diagnosis: same (Very tiny defect) Procedure & Clinicians Procedure: Repair hernia with primary closure Same procedure as scheduled: Yes Indications: Symptomatic small hernia at the umbilicus. Surgeon: Dajuan Hernandez Click Yes if Unassisted: Yes Anesthesia Type: General Operative Notes Findings: Very small defect under the umbilicus Closure Type: primary Specimen(s): none sent Prosthetic devices, grafts, tissues, transplants, or devices: None Estimated Blood Loss (mL): 20 Blood products transfused: none Procedure in detail: The patient is placed supine on the operating room table and underwent general LMA anesthesia. He was prepped and draped in the usual fashion. Local anesthetic was infiltrated and a curvilinear incision made at the right side of the umbilicus. It connected a small vertical incision where the patient had a 5 mm port superior to the umbilicus and a inferior incision that a prior hernia repair had been performed through. The incision was carried down level the fascia. I cleared a large area of anterior fascia of subcu fat. This included the midline and at least an inch out on each side. The only defect I could find was a very small 1 that would have been immediately under the umbilicus. There was no other fascial concern. I dissected well above the scarring from the superior port and well below the umbilicus where the hernia repair had been performed. The fascial edges were cleared and a single [id number] Ethibond was placed in the fascia. This closed the defect. The umbilicus was tacked down to the fascia with an interrupted 3 0 Vicryl. The subcu was closed with interrupted 3 Vicryl and the skin was closed running 4 0 Vicryl subcuticular stitch and a few interrupted 3 0 nylons. Dressing was applied the patient tolerated the procedure well. He was awakened taken recovery area in good condition. Complications: none Condition: stable Disposition: PACU
[2019-04-25] MEDS: fentaNYL 100 MCG/2 ML INJ 50 MCG IV (13:58)
[2019-04-25] MEDS: HYDROCODONE/ACET 5/325 TABLET 1 TAB PO (14:06)
== END 2019-04-25 14:43 | disposition home or self-care (01) ==
PROVIDERS: PCP Physician Assistant; Visit Provider Specialist
PROC: (CPT 49560; principal; 2019-04-25 12:00)
DX: K43.2 Incisional hernia without obstruction or gangrene (principal); E11.9 Type 2 diabetes mellitus without complications; I10 Essential (primary) hypertension; G25.81 Restless legs syndrome; Z79.84 Long term (current) use of oral hypoglycemic drugs; Z85.820 Personal history of malignant melanoma of skin; Z87.891 Personal history of nicotine dependence
CPT/HCPCS: 49560; J0690; J2405; J2704; J3010

== ENCOUNTER → 2020-03-21 08:05 | Outpatient (CLI) | payer MEDICARE, OTHER, SELFPAY ==
[2019-03-08 10:19] VITALS: BMI 27.9
[2020-03-21 09:31] LABS: Add Manual Diff / Slide Review NO; Basophils Absolute Auto 0 /uL (0-100); Basophils Percent Auto 0.5 % (0-2); Eosinophils Absolute Auto 100 /uL (0-450); Eosinophils Percent Auto 1.5 % (2-4); Hematocrit 42.5 % (41-53); Hemoglobin 14.5 g/dL (13.5-17.5); Lymphocytes Absolute Auto 1500 /uL (1100-4500); Lymphocytes Percent Auto 17.3 % (25-40); Mean Corpuscular Hemoglobin 31.7 PG (26-34); Mean Corpuscular Volume 93.2 fL (80-100); Monocytes Absolute Auto 700 /uL (0-900); Monocytes Percent Auto 8.1 % (3-14); Neutrophils Absolute Auto 6200 /uL (1500-7000); Neutrophils Percent Auto 72.6 % (50-75); Platelet Count 199 X10^3/uL (150-400); Red Blood Cell Count 4.56 X10^6/uL (4.5-5.9); White Blood Cell Count 8.5 X10^3/uL (4.5-11.0)
[2020-03-21 09:51] LABS: Albumin 4.5 g/dL (3.5-5.0); Albumin Globulin Ratio 1.7 (1.0-2.8); Alkaline Phosphatase 39 U/L (38-126); Aspartate Aminotransferase 27 IU/L (17-59); BUN Creatinine Ratio 31.1 (6-22); Bilirubin Total 0.5 mg/dL (0.2-1.3); Blood Urea Nitrogen 32 mg/dL (9-20); Calcium 9.9 mg/dL (8.4-10.2); Carbon Dioxide 26 mmol/L (22-32); Chloride 105 mmol/L (98-107); Cholesterol 205 mg/dL (140-199); Estimated Glomerular Filt Rate > 60.0 mL/min (>60); Globulin 2.6 g/dL (1.7-4.1); Glucose 107 mg/dL (80-110); HDL Cholesterol 55 mg/dL (40-60); HEMOLYSIS < 15 (0-50); LDL Cholesterol Calculated 109 mg/dL (<100); Potassium 4.3 mmol/L (3.4-5.1); Sodium 139 mmol/L (137-145); Total Protein 7.1 g/dL (6.3-8.2); Triglycerides 206 mg/dL (35-150)
[2020-03-21 09:56] LABS: Creatinine Urine Random 82.8 mg/dL
[2020-03-21 09:57] LABS: Microalbumi Creatinin Ratio Ur 9.6 ug/mg CR (<30); Microalbumin Urine Random 0.8 mg/dL (0-1.6)
[2020-03-21 10:23] LABS: Thyroid Stimulating Hormone 1.42 uIU/mL (0.47-4.68)
[2020-03-21 14:20] LABS: Alanine Aminotransferase 32 IU/L (<50)
[2020-03-21 15:10] LABS: Hemoglobin A1C% w Est Avg Glu 5.6 % (4.0-6.0)
== END ==
PROVIDERS: PCP Registered Nurse Diabetes Educator; Referring Provider Registered Nurse Diabetes Educator; Visit Provider Registered Nurse Diabetes Educator
DX: E11.9 Type 2 diabetes mellitus without complications (principal); E78.5 Hyperlipidemia, unspecified; I10 Essential (primary) hypertension; N28.9 Disorder of kidney and ureter, unspecified
CPT/HCPCS: 36415; 80053; 80061; 82043; 82570; 83036; 84443; 85025

== ENCOUNTER 2020-04-19 12:38 | Emergency (ER) | payer MEDICARE, OTHER, SELFPAY ==
[2019-03-08 10:19] VITALS: BMI 27.9
[2020-04-19] VITALS (9 sets, daily range): BP systolic 153–178; BP diastolic 94–101; PULSE 81–87; RESP 15–39; TEMP 37.4; O2SAT 96–98; BMI 31.0
[2020-04-19 13:08] LABS: Add Manual Diff / Slide Review NO; Basophils Absolute Auto 100 /uL (0-100); Basophils Percent Auto 0.8 % (0-2); Eosinophils Absolute Auto 0 /uL (0-450); Eosinophils Percent Auto 0.6 % (2-4); Hematocrit 41.6 % (41-53); Hemoglobin 14.2 g/dL (13.5-17.5); Lymphocytes Absolute Auto 1000 /uL (1100-4500); Lymphocytes Percent Auto 14.1 % (25-40); Mean Corpuscular HGB Conc 34.2 % (30-36); Mean Corpuscular Hemoglobin 31.3 PG (26-34); Mean Corpuscular Volume 91.5 fL (80-100); Monocytes Absolute Auto 600 /uL (0-900); Monocytes Percent Auto 8.5 % (3-14); Neutrophils Absolute Auto 5600 /uL (1500-7000); Platelet Count 186 X10^3/uL (150-400); Red Blood Cell Count 4.55 X10^6/uL (4.5-5.9); Red Cell Distribution Width 13.7 % (11.6-14.8); White Blood Cell Count 7.4 X10^3/uL (4.5-11.0)
--- NOTE | 2020-04-19 13:15 | PC.NURSE ---
Patient reports sharp left sided abdominal pain that started during the night and awoke him from sleep. Ranks pain as 03/16/ Denies treatment prior to arrival or any relief from symptoms. Denies difficulty urinating or stooling, reports last BM this morning approx 7am.
[2020-04-19 13:16] LABS: INR 0.9 (0.9-1.3); Prothrombin Time 10.7 SECONDS (10.1-12.7)
--- NOTE | 2020-04-19 13:16 | ED.ABDPAIN ---
HPI - Abdominal Pain General Chief Complaint: Abdominal Pain Stated Complaint: sharp pain in left side abdomen Time Seen by Provider: 04/19/20 13:01 Source: patient Mode of arrival: Ambulatory Limitations: no limitations History of Present Illness HPI narrative: The patient developed left mid abdominal pain about 12 hours prior to arrival. He has no associated nausea vomiting, he has had no diarrhea constipation. He denies left back pain. He has nose testicular pain. He has no history of kidney stones. He has no dysuria or hematuria. He had chili for dinner, he feels that dinner had nothing to do with his current symptoms. He has had no fever or chills. He has no recent injury. Other than the very focal left mid abdominal pain, he feels well. He has a history of diverticulosis. He had acute diverticulitis 2 years ago. He is status post cholecystectomy. He started Lipitor 2 weeks ago. He also takes a daily fiber compound. Related Data Home Medications Medication Instructions Recorded Confirmed Metamucil See Rx Instructions .ROUTE .COMPLEX 05/20/18 03/29/20 Oxy Bile 1 tab PO ONCE PRN 03/02/19 03/29/20 Previous Rx's Medication Instructions Recorded baclofen 20 mg tablet 30 mg PO BEDTIME #65 tab 03/14/20 esomeprazole magnesium 20 mg See Rx Instructions .ROUTE 03/27/20 capsule,delayed release .COMPLEX #90 cap atorvastatin 10 mg tablet 10 mg PO BEDTIME #90 tab 03/29/20 eszopiclone 3 mg tablet 3 mg PO BEDTIME PRN #90 tab 03/29/20 metformin 1,000 mg tablet,extended 1,000 mg PO BID #180 tab 04/06/20 release 24hr One Touch Verio Test Strips #100 each 04/12/20 Allergies Allergy/AdvReac Type Severity Reaction Status Date / Time pneumococcal vaccine Allergy Verified 04/19/20 12:59 Review of Systems Constitutional Constitutional: Reports system reviewed and no additional complaints, except as documented and Denies weakness Eyes Eyes: Denies change in vision ENT Ears, Nose, Mouth, and Throat: Denies vertigo, Reports dizziness and Denies disequilibrium Comments: No sinus congestion. No ear pain. No sore throat. History of allergies. No headache. Cardiovascular Cardiovascular: Denies chest pain, Denies syncope, Denies irregular heart rhythm, Denies lightheadedness, Denies palpitations and Denies dyspnea Respiratory Respiratory: Denies cough, Denies dyspnea and Denies wheezing Gastrointestinal Gastrointestinal: Reports as per HPI, Reports abdominal pain, Denies change in bowel habits, Denies diarrhea, Reports nausea and Denies vomiting Musculoskeletal Musculoskeletal: Denies back pain and Denies numbness Comments: No extremity pain Integumentary/Breasts Skin/Breast: Denies pruritus, Denies erythema, Denies rash and Denies wounds Neurologic Neurologic: Denies confusion, Denies vertigo, Reports dizziness, Denies syncope, Denies numbness, Denies disequilibrium and Denies weakness Psychiatric Psychiatric: Denies anxiety and Denies confusion Endocrine Endocrine: Denies palpitations Allergic/Immunologic Allergic/Immunologic: Denies wheezing Patient History Medical History Actinic keratosis (Resolved) Diabetes (Chronic 2009) Diverticular disease (Chronic 2006) Hernia (Resolved) Hypertension (Chronic 2006) Low back pain (Chronic 1999) Melanoma (Resolved 2009) Restless leg syndrome (Chronic) Surgical History History of umbilical hernia repair (Resolved) Status post cholecystectomy (2014) Status post hernia repair Family History Father CAD (coronary artery disease) Mother Cancer Grandfather No problems noted. Grandmother No problems noted. Grandfather No problems noted. Grandmother No problems noted. Social History household members: spouse Smoking Status: Former smoker Tobacco: How many years used: 20 second hand exposure: No alcohol intake: current substance use type: does not use Smoking Status: Former smoker alcohol intake frequency: 0-2 drinks per day Substance Use Type: does not use Exam Initial Vital Signs Initial Vital Signs: Vital Signs Temperature 99.3 F 04/19/20 12:55 Pulse Rate 85 04/19/20 12:55 Respiratory Rate 15 04/19/20 12:55 Blood Pressure 178/101 H 04/19/20 12:55 Pulse Oximetry 98 04/19/20 12:55 HENMT Head: normocephalic and atraumatic Mouth: oral mucosae normal and moist mucous membranes Throat: posterior oropharynx normal Eyes General: appearance normal, both eyes and all related structures Eyelids: eyelids normal Conjunctivae: conjunctivae normal Sclera: sclerae normal Pupils: PERRL EOM: EOM intact bilaterally Neck Neck: No lymphadenopathy and No JVD Resp Effort & Inspection: normal respiratory effort and able to speak in complete sentences Auscultation: clear to auscultation bilaterally, no rales, no rhonchi and no wheezes Cardio Rate: regular rate Rhythm: regular rhythm Heart Sounds: S1 normal, S2 normal, no click, no gallops, no murmurs and no rubs Pulses: normal peripheral pulses GI Palpation: soft, no hepatosplenomegaly and tender (Mild left mid abdominal tenderness without guarding, distention rebound.) Auscultation: normal bowel sounds Back/Spine/Pelvis Back: No CVA tenderness Cervical Spine: cervical ROM normal Thoracic/Lumbar Spine: thoracic and lumbar spine normal to inspection Sacroiliac Joints: nontender Skin General: no rashes or lesions noted and No petechiae Neuro General: patient alert, patient oriented x3, gait normal and no focal motor deficits Speech: speech normal Motor: muscle tone normal throughout Extrem General: full ROM, no pedal edema and no calf tenderness Psych Mental Status: mental status grossly normal Course Course Course Narrative: The patient's labs were reviewed. His x-ray is suggestive of constipation and he has normal bowel movements. Has noted that his recently started Lipitor, this may be related to his bowel symptoms. He is advised to simply monitor his symptoms, follow-up with his doctor if symptoms persist or worsen. Return here if necessary. Orders Ordered: ED Orders 04/19/20 12:58 EKG-12 Lead Stat 04/19/20 13:00 Complete Blood Count AUTO DIFF Stat Comprehensive Metabolic Panel Stat Lipase Stat Partial Thromboplastin Time Stat Prothrombin Time INR Stat 04/19/20 13:44 XR acute abdomen series Stat 04/19/20 13:49 Urine Microscopic Stat Discontinued Medications Ketorolac Tromethamine (Toradol) 15 mg IV NOW ONE Stop: 04/19/20 13:39 Last Admin: 04/19/20 13:49 Dose: 15 mg Documented by: GENNARO Vital Signs Vital signs: Vital Signs - 8 hr 04/19/20 12:55 04/19/20 13:25 04/19/20 13:30 Temperature 99.3 F Pulse Rate 85 87 87 Respiratory Rate 15 21 22 Blood Pressure 178/101 H Pulse Oximetry 98 97 96 04/19/20 13:48 04/19/20 14:06 04/19/20 14:07 Temperature Pulse Rate 81 85 82 Respiratory Rate 19 39 H 18 Blood Pressure 172/94 H Pulse Oximetry 97 98 98 04/19/20 14:30 04/19/20 15:00 04/19/20 15:30 Temperature Pulse Rate 85 85 84 Respiratory Rate 20 22 20 Blood Pressure 153/95 H 160/94 H 160/99 H Pulse Oximetry 98 97 96 MDM - Abdominal Pain Lab Data Result diagrams: 04/19/20 13:00 04/19/20 13:00 Labs: Lab Results 04/19/20 04/19/20 04/19/20 Range/Units 13:00 13:00 13:00 WBC 7.4 (4.5-11.0) X10^3/uL RBC 4.55 (4.5-5.9) X10^6/uL Hgb 14.2 (13.5-17.5) g/dL Hct 41.6 (41-53) % MCV 91.5 (80-100) fL MCH 31.3 (26-34) PG MCHC 34.2 (30-36) % RDW 13.7 (11.6-14.8) % Plt Count 186 (150-400) X10^3/uL Neut % (Auto) 76.0 H (50-75) % Lymph % (Auto) 14.1 L (25-40) % Sherman % (Auto) 8.5 (3-14) % Eos % (Auto) 0.6 L (2-4) % Baso % (Auto) 0.8 (0-2) % Neut # (Auto) 5600 (6316-0504) /uL Lymph # (Auto) 1000 L (3538-8101) /uL Sherman # (Auto) 600 (0-900) /uL Eos # (Auto) 0 (0-450) /uL Baso # (Auto) 100 (0-100) /uL PT 10.7 (10.1-12.7) SECONDS INR 0.9 (0.9-1.3) APTT 28 D (26.4-36.2) SECONDS Sodium 140 (137-145) mmol/L Potassium 3.9 (3.4-5.1) mmol/L Chloride 107 (98-107) mmol/L Carbon Dioxide 24 (22-32) mmol/L BUN 26 H (9-20) mg/dL Creatinine 1.07 (0.66-1.25) mg/dL Estimated GFR > 60.0 (>60) mL/min BUN/Creatinine Ratio 24.3 H (6-22) Glucose 102 (80-110) mg/dL Calcium 9.5 (8.4-10.2) mg/dL Total Bilirubin 0.8 (0.2-1.3) mg/dL AST 28 (17-59) IU/L ALT 26 (<50) IU/L Alkaline Phosphatase 37 L (38-126) U/L Total Protein 7.7 (6.3-8.2) g/dL Albumin 4.7 (3.5-5.0) g/dL Globulin 3.0 (1.7-4.1) g/dL Albumin/Globulin Ratio 1.6 (1.0-2.8) Lipase 49 (23-300) U/L Urine RBC (0-5/HPF) Urine WBC (0-5/HPF) Urine Bacteria (None) Hyaline Casts (None) Ur Culture Indicated? 04/19/20 Range/Units 13:49 WBC (4.5-11.0) X10^3/uL RBC (4.5-5.9) X10^6/uL Hgb (13.5-17.5) g/dL Hct (41-53) % MCV (80-100) fL MCH (26-34) PG MCHC (30-36) % RDW (11.6-14.8) % Plt Count (150-400) X10^3/uL Neut % (Auto) (50-75) % Lymph % (Auto) (25-40) % Sherman % (Auto) (3-14) % Eos % (Auto) (2-4) % Baso % (Auto) (0-2) % Neut # (Auto) (5519-4736) /uL Lymph # (Auto) (7956-5932) /uL Sherman # (Auto) (0-900) /uL Eos # (Auto) (0-450) /uL Baso # (Auto) (0-100) /uL PT (10.1-12.7) SECONDS INR (0.9-1.3) APTT (26.4-36.2) SECONDS Sodium (137-145) mmol/L Potassium (3.4-5.1) mmol/L Chloride (98-107) mmol/L Carbon Dioxide (22-32) mmol/L BUN (9-20) mg/dL Creatinine (0.66-1.25) mg/dL Estimated GFR (>60) mL/min BUN/Creatinine Ratio (6-22) Glucose (80-110) mg/dL Calcium (8.4-10.2) mg/dL Total Bilirubin (0.2-1.3) mg/dL AST (17-59) IU/L ALT (<50) IU/L Alkaline Phosphatase (38-126) U/L Total Protein (6.3-8.2) g/dL Albumin (3.5-5.0) g/dL Globulin (1.7-4.1) g/dL Albumin/Globulin Ratio (1.0-2.8) Lipase (23-300) U/L Urine RBC None seen (0-5/HPF) Urine WBC None seen (0-5/HPF) Urine Bacteria None seen (None) Hyaline Casts 1-5/lpf (None) Ur Culture Indicated? Cult not indicated Point of care testing: Urine Dip Bedside Urine Glucose Negative Bedside Urine Bilirubin - Negative Bedside Urine Ketone +/- 5 Urine Specific [place] 1.025 Bedside Urine Occult Blood - Negative Bedside Urine pH 5.5 Bedside Urine Protein +/- 15 Bedside Urine Urobilinogen - Negative Bedside Urine Nitrite - Negative Bedside Urine Leukocytes - Negative Esterase Imaging Data Abdominal x-ray: Radiologist's Impression: [address] [address] XRay Report Signed Patient: Josr Sanches PMR#: [id number] : 9Acct:[id number] Age/Sex: 69 / MDate of Service: 04/19/20 Loc: ED Accession Number: [id number] Procedure: XR acute abdomen series Ordering Provider: Brooks Painter MD PROCEDURE: XR ACUTE ABDOMEN SERIES INDICATIONS: left mid abdomen pain TECHNIQUE: One view chest and two views of the abdomen were acquired. COMPARISON: [facility], CR, XR ACUTE ABDOMEN SERIES, 05/12/2018, 16:33. FINDINGS: Surgical changes and devices: Surgical clips are seen in gallbladder fossa.. Chest: Lungs are clear. Heart size is normal. No pleural effusions. No pneumoperitoneum. Abdomen: Bowel gas pattern is nonobstructive. Fecal stasis throughout the colon is seen. No gross peritoneal free air. No suspicious calcifications. Visualized solid organ contours appear normal. Bones: No suspicious bony lesions. IMPRESSION: Mild constipation. No gross free air. No evidence of bowel obstruction. No acute cardiopulmonary pathology. Dictated by: Jae Meyer M.D. on 04/19/2020 at 13:29 Approved by: Jae Meyer M.D. on 04/19/2020 at 13:34 ECG Data Attestation: I personally reviewed and interpreted this ECG as follows: (Normal sinus rhythm rate 86 beats per minute. LAFB. Minimal voltage criteria for LVH. No acute ST T wave changes.) Discharge Plan Departure Patient Disposition: Home Clinical Impression: Abdominal pain Qualifiers: Abdominal location: left upper quadrant Qualified Code(s): R10.12 - Left upper quadrant pain Discharge Date/Time: 04/19/20 16:33 Instructions: DI for Abdominal Pain-Adult Activity Restrictions/Additional Instructions: Be sure you are drinking plenty of fluids. Consider taking Maalox 2 tbsp every 4 hours as needed to promote regular bowel movements if needed. Atorvastatin(Lipitor), your new cholesterol medication, may be a source for abdominal cramping. Keep this in mind. If symptoms persist talk to your doctor. With Your history of diverticulitis, if you develop increasing pain or fever you should return to the ER. Prescriptions: No Action Metamucil See Rx Instructions .ROUTE .COMPLEX RF: 0 baclofen 20 mg tablet 30 mg PO BEDTIME Qty: 65 RF: 0 esomeprazole magnesium 20 mg capsule,delayed release(DR/EC) See Rx Instructions .ROUTE .COMPLEX Qty: 90 RF: 3 metformin 1,000 mg tablet extended release 24hr 1,000 mg PO BID Qty: 180 RF: 3 (DME) One Touch Verio Test Strips Qty: 100 RF: 5 atorvastatin 10 mg tablet 10 mg PO BEDTIME Qty: 90 RF: 3 eszopiclone 3 mg tablet 3 mg PO BEDTIME PRN (Reason: insomnia) Qty: 90 RF: 0 Oxy Bile 1 tab PO ONCE PRN (Reason: Takes when he eats fatty foods) RF: 0 Referrals: Joaquin Gee ARNP [Primary Care Provider] -
[2020-04-19 13:19] LABS: Alanine Aminotransferase 26 IU/L (<50); Albumin 4.7 g/dL (3.5-5.0); Albumin Globulin Ratio 1.6 (1.0-2.8); Alkaline Phosphatase 37 U/L (38-126); Aspartate Aminotransferase 28 IU/L (17-59); BUN Creatinine Ratio 24.3 (6-22); Bilirubin Total 0.8 mg/dL (0.2-1.3); Blood Urea Nitrogen 26 mg/dL (9-20); Calcium 9.5 mg/dL (8.4-10.2); Carbon Dioxide 24 mmol/L (22-32); Chloride 107 mmol/L (98-107); Estimated Glomerular Filt Rate > 60.0 mL/min (>60); Glucose 102 mg/dL (80-110); HEMOLYSIS < 15 (0-50); Lipase 49 U/L (23-300); PTT Partial Thromboplastin Tim 28 SECONDS (26.4-36.2); Potassium 3.9 mmol/L (3.4-5.1); Sodium 140 mmol/L (137-145); Total Protein 7.7 g/dL (6.3-8.2)
--- NOTE | 2020-04-19 13:44 | DI.RAD.S_ITS ---
PROCEDURE: XR ACUTE ABDOMEN SERIES INDICATIONS: left mid abdomen pain TECHNIQUE: One view chest and two views of the abdomen were acquired. COMPARISON: [facility], CR, XR ACUTE ABDOMEN SERIES, 05/12/2018, 16:33. FINDINGS: Surgical changes and devices: Surgical clips are seen in gallbladder fossa.. Chest: Lungs are clear. Heart size is normal. No pleural effusions. No pneumoperitoneum. Abdomen: Bowel gas pattern is nonobstructive. Fecal stasis throughout the colon is seen. No gross peritoneal free air. No suspicious calcifications. Visualized solid organ contours appear normal. Bones: No suspicious bony lesions. IMPRESSION: Mild constipation. No gross free air. No evidence of bowel obstruction. No acute cardiopulmonary pathology. Dictated by: Jae Meyer M.D. on 04/19/2020 at 13:29 Approved by: Jae Meyer M.D. on 04/19/2020 at 13:34
[2020-04-19] MEDS: KETOROLAC 60 MG/2 ML VIAL 15 MG IV (13:49)
[2020-04-19 13:51] LABS: Bacteria Urine None Seen; RBC Urine None Seen (0-5/HPF); WBC Urine None Seen (0-5/HPF)
[2020-04-19 13:55] LABS: Culture Indicated Urine Cult Not Indicated; Hyaline Casts Urine 1-5/LPF
== END 2020-04-19 16:33 | disposition home or self-care (01) ==
PROVIDERS: Emergency Provider Emergency Medicine; PCP Registered Nurse Diabetes Educator
DX: R10.12 Left upper quadrant pain (principal); R42 Dizziness and giddiness
CPT/HCPCS: 36415; 74022; 80053; 81003; 81015; 83690; 85025; 85610; 85730; 93005; 96374; 99284; J1885

== ENCOUNTER 2020-05-03 08:16 | Emergency (ER) | payer MEDICARE, OTHER, SELFPAY ==
[2019-03-08 10:19] VITALS: BMI 27.9
[2020-05-03 08:22] VITALS: BP 174/104; PULSE 90; RESP 20; TEMP 36.8; O2SAT 96; BMI 31.0
--- NOTE | 2020-05-03 08:44 | ED_ITS ---
HPI - Abdominal Pain General Chief Complaint: Abdominal Pain Stated Complaint: pain in side from two weeks ago Time Seen by Provider: 05/03/20 08:24 Source: patient Mode of arrival: Ambulatory Limitations: no limitations History of Present Illness HPI narrative: Patient is a 69-year-old male who presents with left upper quadrant pain. The pain ongoing for the last 2 weeks occasionally radiates up to his epigastric. He was seen evaluated here April 19 he had blood work and x-ray done he had just started cholesterol medication atorvastatin he has been on it for 2 weeks. It was thought that his symptoms may be related to his medication as it was recommended he go off of it to see if his symptoms improve. He has been off of it now for 2 weeks his symptoms have not improved. He says the pain comes and goes and lasts for about an hour he occasionally has pain in his pelvic area but generally does not have radiation from his flank to his groin he denies any nausea or vomiting. No changes in bowel habits she has not had any fever or chills. No shortness of breath chest pain or heart palpitations. MD complaint: abdominal pain Quality: aching Radiation: LUQ Related Data Home Medications Medication Instructions Recorded Confirmed Metamucil See Rx Instructions .ROUTE .COMPLEX 05/20/18 03/29/20 Oxy Bile 1 tab PO ONCE PRN 03/02/19 03/29/20 Previous Rx's Medication Instructions Recorded baclofen 20 mg tablet 30 mg PO BEDTIME #65 tab 03/14/20 esomeprazole magnesium 20 mg See Rx Instructions .ROUTE 03/27/20 capsule,delayed release .COMPLEX #90 cap atorvastatin 10 mg tablet 10 mg PO BEDTIME #90 tab 03/29/20 eszopiclone 3 mg tablet 3 mg PO BEDTIME PRN #90 tab 03/29/20 metformin 1,000 mg tablet,extended 1,000 mg PO BID #180 tab 04/06/20 release 24hr One Touch Verio Test Strips #100 each 04/12/20 amoxicillin-pot clavulanate 1 tab PO Q12H #14 tab 05/03/20 [Augmentin] Allergies Allergy/AdvReac Type Severity Reaction Status Date / Time pneumococcal vaccine Allergy Verified 04/26/20 13:05 Review of Systems Review of Systems Narrative: GENERAL: Denies chills, fatigue, malaise, fever, sweats, travel HEENT: Denies sinus pain, ear pain, sore throat, difficulty swallowing, neck pain RESPIRATORY: Denies dyspnea, cough, wheezing, hemoptysis, sputum. CARDIOVASCULAR: Denies chest pain, palpitations, orthopnea, edema GASTROINTESTINAL: See HPI : Denies dysuria, frequency, incontinence, hematuria, urinary retention, flank pain. MUSCULOSKELETAL: Denies weakness, joint pain, or bony pain SKIN: No rash, no erythema, no pruritus NEUROLOGIC: Denies weakness, dizziness, headache, numbness, change in speech, confusion PSYCHIATRIC: No concerning psychosocial issues. 12 point review of systems is negative except for those stated above and HPI Patient History Medical History Actinic keratosis (Resolved) Diabetes (Chronic 2009) Diverticular disease (Chronic 2006) Hernia (Resolved) Hypertension (Chronic 2006) Low back pain (Chronic 1999) Melanoma (Resolved 2009) Restless leg syndrome (Chronic) Surgical History History of umbilical hernia repair (Resolved) Status post cholecystectomy (2014) Status post hernia repair Family History Father CAD (coronary artery disease) Mother Cancer Grandfather No problems noted. Grandmother No problems noted. Grandfather No problems noted. Grandmother No problems noted. Social History household members: spouse Smoking Status: Former smoker Tobacco: How many years used: 20 second hand exposure: No alcohol intake: current substance use type: does not use Smoking Status: Former smoker alcohol intake frequency: 0-2 drinks per day Substance Use Type: does not use Exam Initial Vital Signs Initial Vital Signs: Vital Signs Temperature 98.3 F 05/03/20 08:22 Pulse Rate 90 05/03/20 08:22 Respiratory Rate 20 05/03/20 08:22 Blood Pressure 174/104 H 05/03/20 08:22 Pulse Oximetry 96 05/03/20 08:22 GENERAL: Well-appearing, well-nourished and in no acute distress. HEENT: Head atraumatic,EOMI, pupils reactive, face symmetric, moist mucous membranes CARDIOVASCULAR: Regular rate and rhythm without murmurs, rubs or gallops. RESPIRATORY: Breath sounds equal bilaterally, no wheezes rales or rhonchi. ABDOMEN: Soft, mild tenderness left upper quadrant no guarding no rebound no upper quadrant pain no lower abdominal pain : No CVA tenderness EXTREMITIES: Normal range of motion, no clubbing or edema. Neurovascularly intact NEUROLOGICAL: Alert and oriented x4.Normal gait and speech. Cranial nerves II through XII grossly intact. SKIN: Warm, dry, no laceration, no petechiae, no rashes or lesions. Course Orders Ordered: ED Orders 05/03/20 08:30 EKG-12 Lead Routine 05/03/20 08:34 Complete Blood Count AUTO DIFF Stat Comprehensive Metabolic Panel Stat Lipase Stat Partial Thromboplastin Time Stat Prothrombin Time INR Stat Troponin & CK Cardiac Panel Stat 05/03/20 08:44 XR chest 1V Stat 05/03/20 09:31 CT abdomen pelvis w con Stat Vital Signs Vital signs: Vital Signs - 8 hr 05/03/20 08:22 Temperature 98.3 F Pulse Rate 90 Respiratory Rate 20 Blood Pressure 174/104 H Pulse Oximetry 96 MDM - Abdominal Pain Lab Data Attestation: I reviewed the patient's lab results. Result diagrams: 05/03/20 08:34 05/03/20 08:34 Labs: Lab Results 05/03/20 05/03/20 05/03/20 Range/Units 08:34 08:34 08:34 WBC 4.2 L (4.5-11.0) X10^3/uL RBC 4.44 L (4.5-5.9) X10^6/uL Hgb 14.1 (13.5-17.5) g/dL Hct 40.9 L (41-53) % MCV 92.0 (80-100) fL MCH 31.6 (26-34) PG MCHC 34.4 (30-36) % RDW 13.4 (11.6-14.8) % Plt Count 208 (150-400) X10^3/uL Neut % (Auto) 56.8 (50-75) % Lymph % (Auto) 29.7 (25-40) % [place] % (Auto) 11.1 (3-14) % Eos % (Auto) 1.8 L (2-4) % Baso % (Auto) 0.6 (0-2) % Neut # (Auto) 2400 (9868-5424) /uL Lymph # (Auto) 1300 (5115-6371) /uL [place] # (Auto) 500 (0-900) /uL Eos # (Auto) 100 (0-450) /uL Baso # (Auto) 0 (0-100) /uL PT 10.7 (10.1-12.7) SECONDS INR 0.9 (0.9-1.3) APTT 27 (26.4-36.2) SECONDS Sodium Cancelled Potassium Cancelled Chloride Cancelled Carbon Dioxide Cancelled BUN Cancelled Creatinine Cancelled Estimated GFR Cancelled BUN/Creatinine Ratio Cancelled Glucose Cancelled Calcium Cancelled Total Bilirubin Cancelled AST Cancelled ALT Cancelled Alkaline Phosphatase Cancelled Total Creatine Kinase (55-170) U/L CK-MB (CK-2) (<2.37) ng/mL CK-MB (CK-2) Rel Index (1.5-5.0) % Troponin I (0.01-0.034) ng/mL Total Protein Cancelled Albumin Cancelled Globulin Cancelled Albumin/Globulin Ratio Cancelled Lipase Cancelled 05/03/20 Range/Units 08:34 WBC (4.5-11.0) X10^3/uL RBC (4.5-5.9) X10^6/uL Hgb (13.5-17.5) g/dL Hct (41-53) % MCV (80-100) fL MCH (26-34) PG MCHC (30-36) % RDW (11.6-14.8) % Plt Count (150-400) X10^3/uL Neut % (Auto) (50-75) % Lymph % (Auto) (25-40) % [place] % (Auto) (3-14) % Eos % (Auto) (2-4) % Baso % (Auto) (0-2) % Neut # (Auto) (9062-8943) /uL Lymph # (Auto) (3361-8533) /uL [place] # (Auto) (0-900) /uL Eos # (Auto) (0-450) /uL Baso # (Auto) (0-100) /uL PT (10.1-12.7) SECONDS INR (0.9-1.3) APTT (26.4-36.2) SECONDS Sodium 136 L Potassium 4.1 Chloride 104 Carbon Dioxide 23 BUN 25 H Creatinine 1.02 Estimated GFR > 60.0 BUN/Creatinine Ratio 24.5 H Glucose 109 Calcium 9.3 Total Bilirubin 0.9 AST 38 ALT 35 Alkaline Phosphatase 38 Total Creatine Kinase 140 (55-170) U/L CK-MB (CK-2) 2.10 (<2.37) ng/mL CK-MB (CK-2) Rel Index 1.5 (1.5-5.0) % Troponin I < 0.012 (0.01-0.034) ng/mL Total Protein 7.6 Albumin 4.5 Globulin 3.1 Albumin/Globulin Ratio 1.5 Lipase 45 Point of care testing: Urine Dip Bedside Urine Glucose Negative Bedside Urine Bilirubin - Negative Bedside Urine Ketone - Negative Urine Specific [place] 1.020 Bedside Urine Occult Blood - Negative Bedside Urine pH 5.5 Bedside Urine Protein +/- 15 Bedside Urine Urobilinogen - Negative Bedside Urine Nitrite - Negative Bedside Urine Leukocytes - Negative Esterase Imaging Data CT scan - abdomen/pelvis: Radiologist's Impression: PROCEDURE: CT ABDOMEN PELVIS W CON INDICATIONS: LEFT SIDED PAIN TECHNIQUE: After the administration of intravenous contrast, 5 mm thick sections acquired from the diaphragm to the symphysis. 5 mm coronal and sagittal reformats were acquired. For radiation dose reduction, the following was used: automated exposure control, adjustment of mA and/or kV according to patient size. COMPARISON: [facility], CR, XR ACUTE ABDOMEN SERIES, 04/19/2020, 12:50. [facility], CT, CT ABDOMEN PELVIS W CON, 05/09/2018, 22:07. FINDINGS: Image quality: Excellent. ABDOMEN: Lung bases: Lung bases are clear. Heart size is normal. Solid organs: Liver is enlarged with steatosis. Gallbladder has been removed. Biliary system is non dilated. Pancreas enhances normally. Spleen is normal in size and enhancement. No adrenal nodules. Kidneys demonstrate normal size and enhancement, without hydronephrosis. Right renal cysts are noted. Peritoneum and bowel: There are minimal fluid levels in several scattered small bowel loops overall nonspecific. There is appearance of thickening within the distal descending and proximal sigmoid colon with diverticula. Very minimal, questionable surrounding pericolonic inflammatory change is present. Nodes and vessels: No retroperitoneal or mesenteric adenopathy by size criteria. Aorta and inferior vena cava are normal in size. Miscellaneous: Trace fat containing supraumbilical hernia is present with rectus diastasis of 3 mm. In addition, a small, 2nd fat containing supraumbilical ventral hernia is present with rectus diastasis measuring 14 mm. PELVIS: Genitourinary: Bladder wall thickness is normal. Miscellaneous: Bilateral fat containing ventral hernias are noted. Bones: No suspicious bony lesions. No vertebral body compression fractures. IMPRESSION: 1. Thickening of the distal descending and proximal sigmoid colon with diverticula with questionable pericolonic stranding. Early diverticulitis cannot be excluded. 2. Minimal nonspecific scattered small bowel fluid levels. This could be related to ileus. Dictated by: Florencia Luna M.D. on 05/03/2020 at 10:37 Approved by: Florencia Luna M.D. on 05/03/2020 at 10:43 [facility] Narrative Medical decision making narrative: Patient continuing to have symptoms possible early diverticulitis no leukocytosis or fever. At this point will treat with antibiotic. He has had problems with Cipro in the past he has had it twice. W ill try Augmentin this time. Discharge Plan Departure Patient Disposition: Home Clinical Impression: Diverticulitis Instructions: DI for Diverticulitis Activity Restrictions/Additional Instructions: *You have been diagnosed with diverticulitis *What to do: You likely have early case of diverticulitis. At this time we will treat you with antibiotics *Continue to take medications as directed Augmentin 875 mg twice a day for 7 days--> sent to [facility] *Follow up with your primary care provider in 2-3 days *Return to ER if you should have increasing abdominal pain chest pain, shortness of breath persistent vomiting bloody stool or any new, worsening or concerning symptoms Prescriptions: New amoxicillin-pot clavulanate [Augmentin] 875-125 mg tablet 1 tab PO Q12H Qty: 14 RF: 0 No Action Metamucil See Rx Instructions .ROUTE .COMPLEX RF: 0 baclofen 20 mg tablet 30 mg PO BEDTIME Qty: 65 RF: 0 esomeprazole magnesium 20 mg capsule,delayed release(DR/EC) See Rx Instructions .ROUTE .COMPLEX Qty: 90 RF: 3 metformin 1,000 mg tablet extended release 24hr 1,000 mg PO BID Qty: 180 RF: 3 (DME) One Touch Verio Test Strips Qty: 100 RF: 5 atorvastatin 10 mg tablet 10 mg PO BEDTIME Qty: 90 RF: 3 eszopiclone 3 mg tablet 3 mg PO BEDTIME PRN (Reason: insomnia) Qty: 90 RF: 0 Oxy Bile 1 tab PO ONCE PRN (Reason: Takes when he eats fatty foods) RF: 0 Referrals: Joaquin Gee ARNP [Primary Care Provider] -
--- NOTE | 2020-05-03 08:44 | DI.RAD.S_ITS ---
PROCEDURE: XR CHEST 1V INDICATIONS: LEFT SIDED PAIN TECHNIQUE: One view of the chest was acquired. COMPARISON: [facility], , XR CHEST 1V, 05/18/2018, 15:38. [facility], CR, CHEST 1 VIEW, 12/31/2017, 15:02. FINDINGS: Surgical changes and devices: None. Lungs and pleura: Lungs are clear. No pleural effusions or pneumothorax. Mediastinum: Mediastinal contours appear normal. Heart size is normal. Bones and chest wall: No suspicious bony lesions. Overlying soft tissues appear unremarkable. IMPRESSION: Normal for age, source of current left-sided pain symptoms is not seen. Dictated by: Blayne Beckman M.D. on 05/03/2020 at 9:04 Approved by: Blayne Beckman M.D. on 05/03/2020 at 9:04
[2020-05-03 08:45] LABS: Add Manual Diff / Slide Review NO; Basophils Absolute Auto 0 /uL (0-100); Basophils Percent Auto 0.6 % (0-2); Eosinophils Absolute Auto 100 /uL (0-450); Eosinophils Percent Auto 1.8 % (2-4); Hematocrit 40.9 % (41-53); Hemoglobin 14.1 g/dL (13.5-17.5); Lymphocytes Absolute Auto 1300 /uL (1100-4500); Lymphocytes Percent Auto 29.7 % (25-40); Mean Corpuscular HGB Conc 34.4 % (30-36); Mean Corpuscular Hemoglobin 31.6 PG (26-34); Monocytes Absolute Auto 500 /uL (0-900); Monocytes Percent Auto 11.1 % (3-14); Neutrophils Absolute Auto 2400 /uL (1500-7000); Neutrophils Percent Auto 56.8 % (50-75); Platelet Count 208 X10^3/uL (150-400); Red Blood Cell Count 4.44 X10^6/uL (4.5-5.9); Red Cell Distribution Width 13.4 % (11.6-14.8); White Blood Cell Count 4.2 X10^3/uL (4.5-11.0)
[2020-05-03 08:50] LABS: INR 0.9 (0.9-1.3); Prothrombin Time 10.7 SECONDS (10.1-12.7)
[2020-05-03 08:53] LABS: PTT Partial Thromboplastin Tim 27 SECONDS (26.4-36.2)
[2020-05-03 09:06] LABS: Alanine Aminotransferase 35 IU/L (<50); Albumin 4.5 g/dL (3.5-5.0); Albumin Globulin Ratio 1.5 (1.0-2.8); Alkaline Phosphatase 38 U/L (38-126); Aspartate Aminotransferase 38 IU/L (17-59); BUN Creatinine Ratio 24.5 (6-22); Bilirubin Total 0.9 mg/dL (0.2-1.3); Blood Urea Nitrogen 25 mg/dL (9-20); Calcium 9.3 mg/dL (8.4-10.2); Carbon Dioxide 23 mmol/L (22-32); Chloride 104 mmol/L (98-107); Creatine Kinase 140 U/L (55-170); Estimated Glomerular Filt Rate > 60.0 mL/min (>60); Globulin 3.1 g/dL (1.7-4.1); Glucose 109 mg/dL (80-110); Lipase 45 U/L (23-300); Potassium 4.1 mmol/L (3.4-5.1); Sodium 136 mmol/L (137-145); Total Protein 7.6 g/dL (6.3-8.2)
[2020-05-03 09:17] LABS: Troponin I < 0.012 ng/mL (0.01-0.034)
[2020-05-03 09:21] LABS: CKMB % Relative Index 1.5 % (1.5-5.0); HEMOLYSIS 29 (0-50)
--- NOTE | 2020-05-03 09:31 | DI.CT.S_ITS ---
PROCEDURE: CT ABDOMEN PELVIS W CON INDICATIONS: LEFT SIDED PAIN TECHNIQUE: After the administration of intravenous contrast, 5 mm thick sections acquired from the diaphragm to the symphysis. 5 mm coronal and sagittal reformats were acquired. For radiation dose reduction, the following was used: automated exposure control, adjustment of mA and/or kV according to patient size. COMPARISON: [facility], CR, XR ACUTE ABDOMEN SERIES, 04/19/2020, 12:50. [facility], CT, CT ABDOMEN PELVIS W CON, 05/09/2018, 22:07. FINDINGS: Image quality: Excellent. ABDOMEN: Lung bases: Lung bases are clear. Heart size is normal. Solid organs: Liver is enlarged with steatosis. Gallbladder has been removed. Biliary system is non dilated. Pancreas enhances normally. Spleen is normal in size and enhancement. No adrenal nodules. Kidneys demonstrate normal size and enhancement, without hydronephrosis. Right renal cysts are noted. Peritoneum and bowel: There are minimal fluid levels in several scattered small bowel loops overall nonspecific. There is appearance of thickening within the distal descending and proximal sigmoid colon with diverticula. Very minimal, questionable surrounding pericolonic inflammatory change is present. Nodes and vessels: No retroperitoneal or mesenteric adenopathy by size criteria. Aorta and inferior vena cava are normal in size. Miscellaneous: Trace fat containing supraumbilical hernia is present with rectus diastasis of 3 mm. In addition, a small, 2nd fat containing supraumbilical ventral hernia is present with rectus diastasis measuring 14 mm. PELVIS: Genitourinary: Bladder wall thickness is normal. Miscellaneous: Bilateral fat containing ventral hernias are noted. Bones: No suspicious bony lesions. No vertebral body compression fractures. IMPRESSION: 1. Thickening of the distal descending and proximal sigmoid colon with diverticula with questionable pericolonic stranding. Early diverticulitis cannot be excluded. 2. Minimal nonspecific scattered small bowel fluid levels. This could be related to ileus. Dictated by: Florencia Luna M.D. on 05/03/2020 at 10:37 Approved by: Florencia Luna M.D. on 05/03/2020 at 10:43
[2020-05-03 11:19] VITALS: BP 157/83; PULSE 84; RESP 16; O2SAT 97
== END 2020-05-03 11:01 | disposition home or self-care (01) ==
PROVIDERS: Emergency Provider Emergency Medicine; PCP Registered Nurse Diabetes Educator
DX: K57.92 Diverticulitis of intestine, part unspecified, without perforation or abscess without bleeding (principal)
CPT/HCPCS: 36415; 71045; 74177; 80053; 81003; 82550; 82553; 83690; 84484; 85025; 85610; 85730; 93005; 99283; 99284; Q9967

== ENCOUNTER 2020-05-12 06:34 | Observation (INO) | payer MEDICARE, OTHER, SELFPAY ==
[2019-03-08 10:19] VITALS: BMI 27.9
[2020-05-12] VITALS (13 sets, daily range): BP systolic 120–145; BP diastolic 70–91; PULSE 79–119; RESP 15–26; TEMP 36.6–37.1; O2SAT 92–99; BMI 31.0; BMI 30.9
[2020-05-12] MEDS: SODIUM CHLORIDE 0.9% 1,000 ML 150 ML IV (07:08)
[2020-05-12 07:13] LABS: Alanine Aminotransferase 33 IU/L (<50); Albumin 4.5 g/dL (3.5-5.0); Albumin Globulin Ratio 1.5 (1.0-2.8); Alkaline Phosphatase 43 U/L (38-126); Aspartate Aminotransferase 29 IU/L (17-59); BUN Creatinine Ratio 22.3 (6-22); Bilirubin Total 0.9 mg/dL (0.2-1.3); Blood Urea Nitrogen 23 mg/dL (9-20); Calcium 9.4 mg/dL (8.4-10.2); Carbon Dioxide 26 mmol/L (22-32); Chloride 101 mmol/L (98-107); Estimated Glomerular Filt Rate > 60.0 mL/min (>60); Globulin 3.1 g/dL (1.7-4.1); Glucose 141 mg/dL (80-110); HEMOLYSIS < 15 (0-50); Lipase 38 U/L (23-300); Potassium 4.1 mmol/L (3.4-5.1); Sodium 137 mmol/L (137-145); Total Protein 7.6 g/dL (6.3-8.2)
[2020-05-12 07:14] LABS: Add Manual Diff / Slide Review NO; Basophils Absolute Auto 100 /uL (0-100); Basophils Percent Auto 0.6 % (0-2); Eosinophils Absolute Auto 0 /uL (0-450); Eosinophils Percent Auto 0.1 % (2-4); Hematocrit 42.1 % (41-53); Hemoglobin 14.3 g/dL (13.5-17.5); Lymphocytes Absolute Auto 1200 /uL (1100-4500); Lymphocytes Percent Auto 9.5 % (25-40); Mean Corpuscular HGB Conc 33.8 % (30-36); Mean Corpuscular Volume 91.6 fL (80-100); Monocytes Absolute Auto 1100 /uL (0-900); Neutrophils Absolute Auto 10200 /uL (1500-7000); Neutrophils Percent Auto 80.8 % (50-75); Platelet Count 205 X10^3/uL (150-400); Red Cell Distribution Width 13.5 % (11.6-14.8); White Blood Cell Count 12.7 X10^3/uL (4.5-11.0)
--- NOTE | 2020-05-12 07:23 | ED_ITS ---
HPI - Abdominal Pain General Chief Complaint: Abdominal Pain Stated Complaint: stomach pain all night Time Seen by Provider: 05/12/20 06:35 Source: patient Mode of arrival: Ambulatory Limitations: no limitations History of Present Illness HPI narrative: Patient here for re-evaluation of left lower quadrant pain. Seen here May 03 diagnosed with diverticulitis home with Augmentin no pain medication, has been doing well until last night 7:00 p.m. abdominal pain. No nausea vomiting fever chills cough cold congestion. No urinary complaints. Pain 9/10. Does not radiate. No chest pain no back pain. Still on Augmentin. Vital signs noted. Heart rate has improved. Now 91 Related Data Home Medications Medication Instructions Recorded Confirmed Oxy Bile 1 tab PO ONCE PRN 03/02/19 05/12/20 Previous Rx's Medication Instructions Recorded baclofen 20 mg tablet 30 mg PO BEDTIME #65 tab 03/14/20 esomeprazole magnesium 20 mg See Rx Instructions .ROUTE 03/27/20 capsule,delayed release .COMPLEX #90 cap eszopiclone 3 mg tablet 3 mg PO BEDTIME PRN #90 tab 03/29/20 metformin 1,000 mg tablet,extended 1,000 mg PO BID #180 tab 04/06/20 release 24hr One Touch Verio Test Strips #100 each 04/12/20 amoxicillin 875 mg-potassium 1 tab PO Q12H #14 tab 05/07/20 clavulanate 125 mg tablet Allergies Allergy/AdvReac Type Severity Reaction Status Date / Time pneumococcal vaccine Allergy Verified 05/07/20 13:20 Review of Systems Review of Systems Narrative: GENERAL: Denies chills, fatigue, malaise, fever, sweats. HEENT: Denies sinus pain, ear pain, sore throat, difficulty swallowing, dizziness. RESPIRATORY: Denies dyspnea, cough, wheezing, hemoptysis, sputum. CARDIOVASCULAR: Denies chest pain, palpitations, orthopnea, edema, GASTROINTESTINAL: Denies nausea, vomiting, complains of abdominal pain, denies diarrhea, constipation, melena. : Denies dysuria, frequency, incontinence, hematuria, urinary retention. MUSCULOSKELETAL: denies weakness, joint pain, or bony pain SKIN: Denies rash, skin lesions, or other NEUROLOGIC: Denies weakness, headache, numbness, change in speech, confusion, seizures, incoordination. PSYCHIATRIC: No concerning psychosocial issues. ROS Unobtainable: All systems reviewed & are unremarkable except as noted in HPI and below Patient History Medical History (Updated 05/12/20 @ 14:19 by Kenia Blas DO) Actinic keratosis (Resolved) Diabetes (Chronic 2009) Diverticular disease (Chronic 2006) GERD (gastroesophageal reflux disease) (Acute) Hypertension (Chronic 2007) Insomnia (Acute) Low back pain (Chronic 1999) Melanoma (Resolved 2009) Restless leg syndrome (Chronic) Surgical History (Updated 05/12/20 @ 14:19 by Kenia Blas DO) History of umbilical hernia repair (Resolved) Status post cholecystectomy (2014) Family History (Updated 05/12/20 @ 14:26 by Kenia Blas DO) Father CAD (coronary artery disease) Mother Breast cancer Grandfather No problems noted. Grandmother No problems noted. Grandfather No problems noted. Grandmother No problems noted. Social History household members: spouse Smoking Status: Former smoker Tobacco: How many years used: 20 second hand exposure: No alcohol intake: current substance use type: does not use Smoking Status: Former smoker alcohol intake frequency: 0-2 drinks per day Substance Use Type: does not use Exam Narrative Exam Narrative: GENERAL: patient appears stated age. Well-nourished, well- developed patient, in no distress, not toxic HEAD: Atraumatic. Normocephalic. EYES: Pupils equal round and reactive. Extraocular motions intact. No scleral icterus. No injection or drainage. ENT: Nose without bleeding, purulent drainage. Throat without erythema, tonsillar hypertrophy or exudate. Airway patent. NECK: Trachea midline. Non tender CARDIOVASCULAR: Regular rate and rhythm without murmurs, gallops, or rubs. RESPIRATORY: Clear to auscultation. Breath sounds equal bilaterally. No wheezes, rales, or rhonchi. GASTROINTESTINAL: Abdomen soft, tender to touch left lower quadrant. No peritoneal signs. Bowel sounds present EXTREMITIES: No edema or joint tenderness. BACK: Nontender without deformity or crepitance. No flank tenderness. NEURO: AOx4. SKIN: No rash or erythema of visible areas PSYCH: Not anxious, is cooperative Initial Vital Signs Initial Vital Signs: Vital Signs Temperature 98.6 F 05/12/20 06:40 Pulse Rate 119 H 05/12/20 06:40 Respiratory Rate 16 05/12/20 06:40 Blood Pressure 145/91 H 05/12/20 06:40 Pulse Oximetry 96 05/12/20 06:40 Course Course Course Narrative: Worsening white cell count as well as degree of diverticulitis on CT scan. Decision to Admit Date: 05/12/20 Decision to Admit time: 08:49 Orders Ordered: ED Orders 05/12/20 08:55 Consult to General Surgery Stat 05/12/20 09:17 COVID19 -ED/INPAT/OR/L&D Stat Acetaminophen (Tylenol) 650 mg PO Q6HR PRN PRN Reason: Fever/Mild Pain (1-3) Al Hydrox/Mg Hydrox/Simethicone (Maalox Plus) 30 ml PO Q6HR PRN PRN Reason: Dyspepsia Baclofen (Lioresal) 30 mg PO BEDTIME GRANT Bisacodyl (Dulcolax) 10 mg [place] DAILY PRN PRN Reason: Constipation Calcium Carbonate (Tums) 1,000 mg PO Q4HR PRN PRN Reason: Dyspepsia Enoxaparin Sodium (Lovenox) 40 mg SUBCUT DAILY [facility] Metronidazole (Flagyl) 500 mg in 100 mls @ 100 mls/hr IV Q8H [facility] Last Admin: 05/12/20 16:08 Dose: 100 mls/hr Documented by: JEAN-PAUL Levofloxacin (Levaquin) 750 mg in 150 mls @ 100 mls/hr IV Q24H [facility] Sodium Chloride (Normal Saline 0.9%) 1,000 mls @ 100 mls/hr IV CONT GRANT Last Admin: 05/12/20 16:10 Dose: 100 mls/hr Documented by: JEAN-PAUL Infusion: 05/12/20 16:10 Dose: 100 mls/hr Documented by: Admin: 05/12/20 10:30 Dose: 100 mls/hr Documented by: JOSE Magnesium Hydroxide (Milk Of Magnesia) 30 ml PO DAILY PRN PRN Reason: Constipation Morphine Sulfate (Morphine) 2 mg IV Q4HR PRN PRN Reason: Pain, Moderate (4-6) Last Admin: 05/12/20 13:01 Dose: 2 mg Documented by: JOSE Naloxone HCl (Narcan) 0.2 mg IV Q2MIN PRN PRN Reason: Opiate Reversal Eszopiclone 3 Mg 3 mg PO BEDTIME PRN PRN Reason: insomnia Ondansetron HCl (Zofran) 4 mg IV Q8HR PRN PRN Reason: Nausea And Vomiting Oxycodone HCl (Percolone) 5 mg PO Q4HR PRN PRN Reason: Pain, Moderate (4-6) Last Admin: 05/12/20 14:30 Dose: 5 mg Documented by: JOSE Pantoprazole Sodium (Protonix) 20 mg PO 0700 [facility] Discontinued Medications Sodium Chloride (Normal Saline 0.9%) 1,000 mls @ 150 mls/hr IV CONT [facility] Last Infusion: 05/12/20 08:47 Dose: 0 mls/hr Documented by: Infusion: 05/12/20 07:30 Dose: 1,000 mls/hr Documented by: Admin: 05/12/20 07:08 Dose: 150 mls/hr Documented by: SOFIYA Sodium Chloride (Normal Saline 0.9%) 500 mls @ 1,000 mls/hr IV BOLUS ONE Stop: 05/12/20 07:50 Last Admin: 05/12/20 08:05 Dose: 150 mls/hr Documented by: DELISA Metronidazole (Flagyl) 500 mg in 100 mls @ 100 mls/hr IV NOW ONE Stop: 05/12/20 09:47 Last Infusion: 05/12/20 10:16 Dose: 0 mls/hr Documented by: Admin: 05/12/20 08:53 Dose: 100 mls/hr Documented by: NASIM Levofloxacin (Levaquin) 500 mg in 100 mls @ 100 mls/hr IV NOW ONE Stop: 05/12/20 09:52 Last Infusion: 05/12/20 15:12 Dose: 0 mls/hr Documented by: Admin: 05/12/20 10:19 Dose: 100 mls/hr Documented by: JOSE Sodium Chloride (Normal Saline 0.45%) 1,000 mls @ 100 mls/hr IV CONT [facility] Last Admin: 05/12/20 15:11 Dose: Not Given Documented by: JOSE Magnesium Chloride (Slow-Mag) 128 mg PO NOW ONE Stop: 05/12/20 14:02 Last Admin: 05/12/20 15:26 Dose: 128 mg Documented by: JEAN-PAUL Morphine Sulfate (Morphine) 4 mg IV NOW ONE Stop: 05/12/20 07:22 Last Admin: 05/12/20 07:28 Dose: 4 mg Documented by: DELISA Ondansetron HCl (Zofran) 4 mg IV NOW ONE Stop: 05/12/20 07:22 Last Admin: 05/12/20 07:28 Dose: 4 mg Documented by: DELISA Reevaluation(s) Reevaluation #1: Pain control. Results reviewed with patient and agrees for admission Time: 08:50 Consultations Consultation #1: Spoke with Dr. Blas, will admit Time: 08:57 Consultation #2: Spoke with general surgery dr duenas...will follow Time: 08:57 Consultation #3: s/w dr rivera with pcp group..admit to hospitalist Time: 08:58 Vital Signs Vital signs: Vital Signs - 8 hr 05/12/20 06:40 Temperature 98.6 F Pulse Rate 119 H Respiratory Rate 16 Blood Pressure 145/91 H Pulse Oximetry 96 MDM - Abdominal Pain Differential Diagnosis Differential diagnosis: Likely diverticulitis, small bowel obstruction and other (Perforation) Medical Records Attestation: I reviewed the patient's medical records. Lab Data Attestation: I reviewed the patient's lab results. Result diagrams: 05/12/20 06:55 05/12/20 06:55 Labs: Lab Results 05/12/20 05/12/20 05/12/20 Range/Units 06:55 06:55 06:55 WBC 12.7 H (4.5-11.0) X10^3/uL RBC 4.60 (4.5-5.9) X10^6/uL Hgb 14.3 (13.5-17.5) g/dL Hct 42.1 (41-53) % MCV 91.6 (80-100) fL MCH 31.0 (26-34) PG MCHC 33.8 (30-36) % RDW 13.5 (11.6-14.8) % Plt Count 205 (150-400) X10^3/uL Neut % (Auto) 80.8 H (50-75) % Lymph % (Auto) 9.5 L (25-40) % [place] % (Auto) 9.0 (3-14) % Eos % (Auto) 0.1 L (2-4) % Baso % (Auto) 0.6 (0-2) % Neut # (Auto) 35131 H (2021-0025) /uL Lymph # (Auto) 1200 (9921-8285) /uL [place] # (Auto) 1100 H (0-900) /uL Eos # (Auto) 0 (0-450) /uL Baso # (Auto) 100 (0-100) /uL Sodium 137 (137-145) mmol/L Potassium 4.1 (3.4-5.1) mmol/L Chloride 101 (98-107) mmol/L Carbon Dioxide 26 (22-32) mmol/L BUN 23 H (9-20) mg/dL Creatinine 1.03 (0.66-1.25) mg/dL Estimated GFR > 60.0 (>60) mL/min BUN/Creatinine Ratio 22.3 H (6-22) Glucose 141 H (80-110) mg/dL Calcium 9.4 (8.4-10.2) mg/dL Magnesium (1.6-2.3) mg/dL Total Bilirubin 0.9 (0.2-1.3) mg/dL AST 29 (17-59) IU/L ALT 33 (<50) IU/L Alkaline Phosphatase 43 (38-126) U/L Total Protein 7.6 (6.3-8.2) g/dL Albumin 4.5 (3.5-5.0) g/dL Globulin 3.1 (1.7-4.1) g/dL Albumin/Globulin Ratio 1.5 (1.0-2.8) Lipase 38 (23-300) U/L Procalcitonin 0.31 (<0.5) ng/mL 05/12/20 Range/Units 06:55 WBC (4.5-11.0) X10^3/uL RBC (4.5-5.9) X10^6/uL Hgb (13.5-17.5) g/dL Hct (41-53) % MCV (80-100) fL MCH (26-34) PG MCHC (30-36) % RDW (11.6-14.8) % Plt Count (150-400) X10^3/uL Neut % (Auto) (50-75) % Lymph % (Auto) (25-40) % [place] % (Auto) (3-14) % Eos % (Auto) (2-4) % Baso % (Auto) (0-2) % Neut # (Auto) (7858-7138) /uL Lymph # (Auto) (0515-7501) /uL [place] # (Auto) (0-900) /uL Eos # (Auto) (0-450) /uL Baso # (Auto) (0-100) /uL Sodium (137-145) mmol/L Potassium (3.4-5.1) mmol/L Chloride (98-107) mmol/L Carbon Dioxide (22-32) mmol/L BUN (9-20) mg/dL Creatinine (0.66-1.25) mg/dL Estimated GFR (>60) mL/min BUN/Creatinine Ratio (6-22) Glucose (80-110) mg/dL Calcium (8.4-10.2) mg/dL Magnesium 1.5 L (1.6-2.3) mg/dL Total Bilirubin (0.2-1.3) mg/dL AST (17-59) IU/L ALT (<50) IU/L Alkaline Phosphatase (38-126) U/L Total Protein (6.3-8.2) g/dL Albumin (3.5-5.0) g/dL Globulin (1.7-4.1) g/dL Albumin/Globulin Ratio (1.0-2.8) Lipase (23-300) U/L Procalcitonin (<0.5) ng/mL Imaging Data CT scan - abdomen/pelvis: Radiologist's Impression: [address] [id number] [address] Scan Report Signed Patient: Josr Sanches PMR#: [id number] : 9Acct:[id number] Age/Sex: 69 / MDate of Service: 05/12/20 Loc: ED Accession Number: [id number] Procedure: CT abdomen pelvis w con Ordering Provider: Reji Mckinney MD PROCEDURE: CT ABDOMEN PELVIS W CON INDICATIONS: IV contrast only/left lower quadrant pain/diverticulitis TECHNIQUE: After the administration of intravenous contrast, 5 mm thick sections acquired from the diaphragm to the symphysis. 5 mm coronal and sagittal reformats were acquired. For radiation dose reduction, the following was used: automated exposure control, adjustment of mA and/or kV according to patient size. COMPARISON: [facility], CR, XR ACUTE ABDOMEN SERIES, 04/19/2020, 12:50. [facility], US, RENAL COMPLETE, 03/11/2017, 9:17. [facility], US, ABDOMEN LIMITED, 02/20/2015, 8:15. [facility], CR, XR ACUTE ABDOMEN SERIES, 05/12/2018, 16:33. [facility], CT, CT ABDOMEN PELVIS W CON, 05/03/2020, 9:33. [facility], CT, CT ABDOMEN PELVIS W CON, 05/09/2018, 22:07. FINDINGS: Image quality: Excellent. ABDOMEN: Lung bases: Lung bases are clear. Heart size is normal. Coronary artery calcifications are seen. Solid organs: Liver is normal in size and enhancement. Diffuse fatty liver infiltration is noted. Gallbladder has been removed. Biliary system is non dilated. Pancreas enhances normally. Spleen is normal in size and enhancement. No adrenal nodules. Kidneys demonstrate normal size and enhancement, without hydronephrosis. Simple appearing, nonenhancing right renal cysts are seen. Peritoneum and bowel: There is focal wall thickening seen involving the distal descending colon, with surrounding inflammatory change. Diverticulosis can be seen within this region. No free air is seen to suggest perforation. No loculated abscess can be seen. No other areas of bowel wall thickening are seen. No dilated loops of small bowel are seen. Nodes and vessels: No retroperitoneal or mesenteric adenopathy by size criteria. Aorta and inferior vena cava are normal in size. Miscellaneous: Small fat containing ventral wall hernias are seen. PELVIS: Genitourinary: Bladder wall thickness is normal. Miscellaneous: No enlarged inguinal or pelvic lymph nodes are seen. There is a fat-containing left inguinal hernia seen. Bones: No suspicious bony lesions. No vertebral body compression fractures. There is moderate levoconvex lumbar scoliosis, with associated degenerative change IMPRESSION: Distal descending colon diverticulitis, which is clearly more prominent than on the 05/03/2020 examination. No findings of perforation or abscess are seen. When clinically appropriate (following adequate treatment of the patient's current clinical episode) a colonoscopy is recommended for further evaluation for a potential underlying mass (if not already recently done). ECG Data Attestation: I personally reviewed and interpreted this ECG as follows: Interpretation: Sinus tachycardia, rate 102. No ST elevation. MDM Narrative Medical decision making narrative: Worsening white cell count as well as CT scan shows increased diverticulitis. Outpatient antibiotics not effective and will need admission for IV antibiotic Discharge Plan Departure Patient Disposition: Admitted As Inpatient Clinical Impression: Diverticulitis Discharge Date/Time: 05/12/20 08:59 Referrals: Joaquin Gee ARNP [Primary Care Provider] - Admit Date/Time: 05/12/20 08:58 Admit Provider: Kenia Blas
[2020-05-12] MEDS: ONDANSETRON 4 MG/2 ML INJ IV (07:28)
[2020-05-12] MEDS: MORPHINE 4 MG/ML INJ IV (07:28)
[2020-05-12] MEDS: SODIUM CHLORIDE 0.9% 500 ML 150 ML IV (08:05)
[2020-05-12] MEDS: metroNIDAZOLE 500 MG/100 ML PIGGYBACK 100 MG IV ×2 (08:53→16:08)
[2020-05-12 09:41] LABS: COVID19 -Nasal RAPID Negative (Negative)
[2020-05-12 09:47] LABS: Procalcitonin 0.31 ng/mL (<0.5)
[2020-05-12] MEDS: levoFLOXacin 500 MG/100 ML PIGGYBACK 100 MG IV (10:19)
[2020-05-12] MEDS: SODIUM CHLORIDE 0.9% 1,000 ML 100 ML IV ×2 (10:30→16:10)
--- NOTE | 2020-05-12 11:34 | PM.HP.1 ---
History of Present Illness History of Present Illness Date Patient Seen: 05/12/20 Chief complaint: stomach pain all night Narrative: Josr Sanches is a 69-year-old male with a past medical history significant for hypertension in remission after significant weight loss, restless leg syndrome, diabetes mellitus type 2, non-insulin using and diet-controlled, GERD, and insomnia presented to the ED with worsening left lower quadrant abdominal pain. The patient reports that approximately 10 days ago he was diagnosed with diverticulitis and discharged from the ED on Augmentin. The patient reports he was doing well until last night around 7:00 p.m. when he developed a sharp stabbing pain in his left lower abdomen that was persistent. He reports the pain felt sharp and as though a knife with stabbing him in his side. He did not sleep well and the pain persisted until this morning prompting him to come to the emergency department. He denies any associated symptoms including headache, chest pain, shortness of breath, nausea, vomiting, fever, chills, constipation or diarrhea. The patient does report states that since his cholecystectomy his bowel movements have been looser. The patient was unable to eat or take his antibiotic last night and this morning due to the severity of his abdominal pain. He received morphine in the emergency department which controlled his pain. He reports he has had 3 flares of diverticulitis including current flare, with his last episode 4 years ago. ED course: CT abdomen and pelvis with contrast demonstrated worsening of diverticulitis without perforation or abscess formation. WBC 12.7 and procalcitonin 0.31 despite antibiotic therapy. Patient was admitted as inpatient for treatment of diverticulitis. Patient History Medical History (Updated 05/12/20 @ 14:19 by Kenia Blas DO) Actinic keratosis (Resolved) Diabetes (Chronic 2009) Diverticular disease (Chronic 2006) GERD (gastroesophageal reflux disease) (Acute) Hypertension (Chronic 2006) Insomnia (Acute) Low back pain (Chronic 1999) Melanoma (Resolved 2009) Restless leg syndrome (Chronic) Surgical History (Updated 05/12/20 @ 14:19 by Kenia Blas DO) History of umbilical hernia repair (Resolved) Status post cholecystectomy (2014) Family & Social History Family History (Updated 05/12/20 @ 14:25 by Kenia Blas DO) Father CAD (coronary artery disease) Mother Breast cancer Grandfather No problems noted. Grandmother No problems noted. Grandfather No problems noted. Grandmother No problems noted. Social History: household members spouse Prior Living Arrangements House Safety & Behavioral: Feels Safe in Current Yes Environment Been Physically Hurt or No Threatened By a Person Suicidal Ideation Description None Suicide Plan Description No Plan Tobacco & Substance use: Tobacco type cigarettes Smoking Status Former smoker, 1ppd x 25 years alcohol intake current alcohol intake frequency 1 vodka martini daily Substance Use Type does not use Meds Home Medications and Allergies Home Medications Medication Instructions Recorded Confirmed Type Oxy Bile 1 tab PO ONCE PRN 03/02/19 05/12/20 History baclofen 20 mg tablet 30 mg PO BEDTIME #65 tab 03/14/20 05/12/20 Rx esomeprazole magnesium 20 mg See Rx Instructions .ROUTE 03/27/20 05/12/20 Rx capsule,delayed release .COMPLEX #90 cap eszopiclone 3 mg tablet 3 mg PO BEDTIME PRN #90 tab 03/29/20 05/12/20 Rx metformin 1,000 mg tablet,extended 1,000 mg PO BID #180 tab 04/06/20 05/12/20 Rx release 24hr One Touch Verio Test Strips #100 each 04/12/20 05/12/20 Rx amoxicillin 875 mg-potassium 1 tab PO Q12H #14 tab 05/07/20 05/12/20 Rx clavulanate 125 mg tablet Allergies Allergy/AdvReac Type Severity Reaction Status Date / Time pneumococcal vaccine Allergy Verified 05/07/20 13:20 Review of Systems Review of Systems Narrative: A 10 system comprehensive review of systems was conducted with the patient and found to be negative except as above in the History of Present Illness. Exam Vital Signs (past 8 hours): - 05/12/20 06:40 05/12/20 07:00 05/12/20 07:30 Temperature 98.6 F Pulse Rate 119 H 102 H 89 Respiratory Rate 16 21 23 Blood Pressure 145/91 H Pulse Oximetry 96 95 94 05/12/20 08:06 05/12/20 08:09 05/12/20 08:30 Temperature Pulse Rate 84 81 80 Respiratory Rate 21 17 15 Blood Pressure 127/76 134/70 Pulse Oximetry 94 94 95 05/12/20 09:00 05/12/20 09:40 Temperature Pulse Rate 83 82 Respiratory Rate 26 H Blood Pressure 120/76 Pulse Oximetry 96 92 Oxygen Delivery Method Room Air Narrative Exam Narrative: General: Older gentleman sitting in bed and in no acute distress, well-developed, well-nourished, appropriately interactive. HEENT: Normocephalic, atraumatic. External ears without defect. Pupils equal, round, and reactive to light and accommodation. Anicteric sclerae, moist conjunctivae, and no lid lag. Oropharynx free of erythema and cobble stoning with moist mucosa. Neck: Supple with full range of motion. No jugular venous distension. No bruits. No lymphadenopathy or thyromegaly. Cardiovascular: Regular rate and rhythm without murmurs, rubs, or gallops appreciated Pulmonary: Clear to auscultation bilaterally without crackles, wheezes, or rhonchi. Normal respiratory effort with no use of accessory muscles. Abdomen: Soft, bowel sounds present, moderate tenderness to palpation and left lateral/lower abdomen, nondistended. No rebound or evidence of surgical abdomen. No hepatosplenomegaly or masses appreciated. Extremities: No clubbing, cyanosis, or edema. Skin: Normal temperature, turgor, and texture; no rash, ulcers, or subcutaneous nodules appreciated. Neurological: Cranial nerves grossly intact. Psychiatric: Normal mood and affect. Alert and oriented to person, place, and time. Objective Labs Result Diagrams: 05/12/20 06:55 05/12/20 06:55 Labs: Laboratory Results - last 24 hr 05/12/20 05/12/20 05/12/20 06:55 06:55 06:55 WBC 12.7 H RBC 4.60 Hgb 14.3 Hct 42.1 MCV 91.6 MCH 31.0 MCHC 33.8 RDW 13.5 Plt Count 205 Neut % (Auto) 80.8 H Lymph % (Auto) 9.5 L Thomas % (Auto) 9.0 Eos % (Auto) 0.1 L Baso % (Auto) 0.6 Neut # (Auto) 38056 H Lymph # (Auto) 1200 Thomas # (Auto) 1100 H Eos # (Auto) 0 Baso # (Auto) 100 Sodium 137 Potassium 4.1 Chloride 101 Carbon Dioxide 26 BUN 23 H Creatinine 1.03 Estimated GFR > 60.0 BUN/Creatinine Ratio 22.3 H Glucose 141 H Calcium 9.4 Total Bilirubin 0.9 AST 29 ALT 33 Alkaline Phosphatase 43 Total Protein 7.6 Albumin 4.5 Globulin 3.1 Albumin/Globulin Ratio 1.5 Lipase 38 Procalcitonin 0.31 COVID-19 PCR 05/12/20 09:17 WBC RBC Hgb Hct MCV MCH MCHC RDW Plt Count Neut % (Auto) Lymph % (Auto) Thomas % (Auto) Eos % (Auto) Baso % (Auto) Neut # (Auto) Lymph # (Auto) Thomas # (Auto) Eos # (Auto) Baso # (Auto) Sodium Potassium Chloride Carbon Dioxide BUN Creatinine Estimated GFR BUN/Creatinine Ratio Glucose Calcium Total Bilirubin AST ALT Alkaline Phosphatase Total Protein Albumin Globulin Albumin/Globulin Ratio Lipase Procalcitonin COVID-19 PCR Negative Assessment & Plan Assessment & Plan narrative: Jors Sanches is a 69-year-old male with a past medical history significant for hypertension in remission after significant weight loss, restless leg syndrome, diabetes mellitus type 2, non-insulin using and diet-controlled, GERD, and insomnia presented to the ED with worsening left lower quadrant abdominal pain. 1. Acute diverticulitis, present on admission. Active. -Patient recently diagnosed with diverticulitis 10 days ago and was on Augmentin when his left lower quadrant abdominal pain worsened acutely. -CT abdomen and pelvis with contrast demonstrated distal descending colon diverticulitis more prominent than on the 05/03/2020 examination. No evidence of perforation or abscess. -WBC 12.7 and procalcitonin 0.31. Continue to monitor WBC and procalcitonin daily. -Received levofloxacin 750 mg IV x1 and metronidazole 500 mg IV x1 in ED. Continue levofloxacin 750 mg IV daily and metronidazole 500 mg IV every 8 hours. -Continue to advance diet slowly as tolerated. Patient reports he has had no difficulty with consuming his normal diet. -Continue pain control with acetaminophen 650 mg every 6 hours as needed for mild pain, oxycodone 5 mg every 4 hours as needed for moderate to severe pain and morphine 2 mg IV every 4 hours as needed for severe breakthrough pain. -Recommend outpatient general surgery consultation with his surgeon Dr. Hernandez as this is his 3rd diverticular flare and the patient likely needs colonoscopy once infection has resolved and/or preemptive partial colectomy. General surgery was contacted through the ED for inpatient consultation which does not seem to be needed. 2. Diabetes mellitus type 2, non-insulin using and diet-controlled, present on admission. Stable. -Hemoglobin A1c 5.6% indicative of excellent glycemic control. -Held metformin. -Continue ACHS blood glucose checks. If blood glucose levels are elevated will consider adding low-dose correctional scale insulin if needed. -Continue carbohydrate consistent diet. 3. GERD, chronic, present on admission. Stable. -Continue home Protonix 20 mg daily. 4. Insomnia, chronic, present on admission. Stable. -Continue home eszopiclone 3 mg daily at bedtime as needed for insomnia. 5. Restless leg syndrome, chronic, present on admission. Stable. -Continue home baclofen 30 mg daily at bedtime. Code status: Full code, surrogate decision maker is patient's spouse VTE prophylaxis: Enoxaparin, SCDs Patient is admitted under inpatient status with expected length of stay greater than 2 midnights due to severity of presenting symptoms, risk of adverse event, and complexity of treatment plan.
--- NOTE | 2020-05-12 11:37 | PC.NURSE ---
Admit from ER, arrived on rlyons, able to walk a few steps to bed, rating pain 5/10. Requesting morphine. NPO, educated patient on Npo status and POC IV ABX. Call light in reach. Admission completed.
[2020-05-12 11:45] LABS: Magnesium 1.5 mg/dL (1.6-2.3)
[2020-05-12] MEDS: MORPHINE 2 MG/ML INJ IV ×3 (13:01→20:39)
[2020-05-12 13:52] LABS: Bacteria Urine None Seen
[2020-05-12 13:54] LABS: Appearance Urine UA CLEAR; Bilirubin Urine UA NEGATIVE (NEGATIVE); Color Urine UA YELLOW; Glucose Urine UA NEGATIVE (Negative); Ketones Urine UA NEGATIVE (NEGATIVE); Leukocyte Esterase Urine UA NEGATIVE (NEGATIVE); Nitrite Urine UA NEGATIVE (Negative); Occult Blood Urine UA NEGATIVE (Negative); Protein Urine UA NEGATIVE (Negative); Urobilinogen Urine UA 0.2 E.U./dL (0.2)
[2020-05-12 14:06] LABS: Culture Indicated Urine Cult Not Indicated; RBC Urine 0-1/HPF (0-5/HPF); Squamous Epithelial Cell Urine 0-1 /HPF (0-5/HPF); WBC Urine 0-1/HPF (0-5/HPF)
[2020-05-12] MEDS: OXYCODONE IR 5 MG TABLET PO ×2 (14:30→18:58)
[2020-05-12] MEDS: MAGNESIUM CHLORIDE 64 MG TABLET 128 MG PO (15:26)
[2020-05-12] MEDS: BACLOFEN 10 MG TABLET 30 MG PO (20:39)
[2020-05-12] MEDS: MAGNESIUM HYDROXIDE 30 ML UDC PO (20:48)
--- NOTE | 2020-05-12 21:45 | PC.NURSE ---
Pt alert and cooperative with care, able to make needs known - states that clear liquid diet is what he prefers at this time. Independent in room, remains on tele. NS IV infusing@ 100ml/hr as ordered. States that MS IV relieves his pain to a 3/10.
[2020-05-13 00:34] VITALS: BP 122/67; PULSE 48; RESP 18; TEMP 36.6; O2SAT 91
[2020-05-13] MEDS: MORPHINE 2 MG/ML INJ IV ×2 (01:00→06:27)
[2020-05-13] MEDS: metroNIDAZOLE 500 MG/100 ML PIGGYBACK 100 MG IV ×2 (01:00→09:21)
[2020-05-13] MEDS: SODIUM CHLORIDE 0.9% 1,000 ML 100 ML IV (02:45)
[2020-05-13] MEDS: OXYCODONE IR 5 MG TABLET PO ×3 (03:00→12:36)
[2020-05-13 03:10] VITALS: O2SAT 95
[2020-05-13 04:48] VITALS: BP 137/83; PULSE 79; RESP 18; TEMP 37.2; O2SAT 97
[2020-05-13 05:03] LABS: Add Manual Diff / Slide Review NO; Basophils Absolute Auto 0 /uL (0-100); Basophils Percent Auto 0.6 % (0-2); Eosinophils Absolute Auto 100 /uL (0-450); Hematocrit 35.8 % (41-53); Lymphocytes Absolute Auto 1000 /uL (1100-4500); Lymphocytes Percent Auto 17.8 % (25-40); Mean Corpuscular HGB Conc 33.5 % (30-36); Mean Corpuscular Hemoglobin 31.1 PG (26-34); Mean Corpuscular Volume 92.9 fL (80-100); Monocytes Absolute Auto 600 /uL (0-900); Monocytes Percent Auto 10.7 % (3-14); Neutrophils Absolute Auto 3800 /uL (1500-7000); Neutrophils Percent Auto 69.9 % (50-75); Platelet Count 164 X10^3/uL (150-400); Red Blood Cell Count 3.86 X10^6/uL (4.5-5.9); Red Cell Distribution Width 13.5 % (11.6-14.8); White Blood Cell Count 5.5 X10^3/uL (4.5-11.0)
[2020-05-13 05:11] LABS: BUN Creatinine Ratio 14.9 (6-22); Blood Urea Nitrogen 14 mg/dL (9-20); Calcium 8.4 mg/dL (8.4-10.2); Carbon Dioxide 31 mmol/L (22-32); Chloride 102 mmol/L (98-107); Estimated Glomerular Filt Rate > 60.0 mL/min (>60); Glucose 114 mg/dL (80-110); HEMOLYSIS < 15 (0-50); Magnesium 1.9 mg/dL (1.6-2.3); Potassium 3.7 mmol/L (3.4-5.1); Sodium 137 mmol/L (137-145)
--- NOTE | 2020-05-13 05:51 | PC.NURSE ---
Addendum entered by Niecy Panda R.N. 05/13/20 06:48: [id number] Pt state LLQ pain 4/10. Requesting Morphine. Same given. Overall states that he is feeling much better. Original Note: Pt rates LLQ Pain at 4-6/10. Pt states previously that Morphine was the most effective. States that pain severity seems to be decreasing with antibiotics and analgesia. Pain sleeping after percolone.
[2020-05-13 06:19] LABS: Procalcitonin 0.22 ng/mL (<0.5)
[2020-05-13] MEDS: PANTOPRAZOLE 20 MG TABLET PO (06:22)
[2020-05-13 07:00] VITALS: O2SAT 99
[2020-05-13 08:00] VITALS: BP 131/79; PULSE 72; RESP 18; TEMP 36.6; O2SAT 99
--- NOTE | 2020-05-13 09:02 | PC.NURSE ---
Addendum entered by Jess Wood R.N. 05/13/20 12:40: Completed IV ABX, and rx's sent to [facility]. Pt is tolerating a general diet, without nausea. Pain has been better controlled today and Pt is agreeable to d/c home with follow up care on Thursday. And Pt will also be following up with [facility]. Iv removed and instructions reviewed with Pt. Original Note: Am shift Pt reports desire to eat regular breakfast today, tolerating well so far. No c/o and pain has been better controlled since oxycodone started with break through morphine. IV ABX tolerated well. No n/v, VSS. In good spirits. Updated POC.
--- NOTE | 2020-05-13 09:09 | PM.DS.1 ---
History of Present Illness History of Present Illness Date Patient Seen: 05/12/20 Chief complaint: stomach pain all night Narrative: Josr Sanches is a 69-year-old male with a past medical history significant for hypertension in remission after significant weight loss, restless leg syndrome, diabetes mellitus type 2, non-insulin using and diet-controlled, GERD, and insomnia presented to the ED with worsening left lower quadrant abdominal pain. 1. Acute diverticulitis, present on admission. Resolving. -Patient recently diagnosed with diverticulitis 10 days ago and was on Augmentin when his left lower quadrant abdominal pain worsened acutely. -CT abdomen and pelvis with contrast demonstrated distal descending colon diverticulitis more prominent than on the 05/03/2020 examination. No evidence of perforation or abscess. -WBC 12.7 and procalcitonin 0.31. WBC normalized at 5.5. Continued to monitor WBC and procalcitonin daily. -Received levofloxacin 750 mg IV x1 and metronidazole 500 mg IV x1 in ED. Continued levofloxacin 750 mg daily and metronidazole 500 mg every 8 hours for 10 days to complete treatment. -Continued to advance diet slowly as tolerated. Patient reports he has had no difficulty with consuming his normal diet. -Continued pain control with acetaminophen 650 mg every 6 hours as needed for mild pain, oxycodone 5 mg every 4 hours as needed for moderate to severe pain and morphine 2 mg IV every 4 hours as needed for severe breakthrough pain. -Recommended outpatient general surgery consultation with his surgeon Dr. Hernandez as this is his 3rd diverticular flare and the patient likely needs colonoscopy once infection has resolved and/or preemptive partial colectomy. General surgery was contacted through the ED for inpatient consultation which does not seem to be needed. 2. Diabetes mellitus type 2, non-insulin using and diet-controlled, present on admission. Stable. -Hemoglobin A1c 5.6% indicative of excellent glycemic control. -Held metformin. -Continued [facility] blood glucose checks. If blood glucose levels are elevated will consider adding low-dose correctional scale insulin if needed. -Continued carbohydrate consistent diet. 3. GERD, chronic, present on admission. Stable. -Continued home Protonix 20 mg daily. 4. Insomnia, chronic, present on admission. Stable. -Continued home eszopiclone 3 mg daily at bedtime as needed for insomnia. 5. Restless leg syndrome, chronic, present on admission. Stable. -Continued home baclofen 30 mg daily at bedtime. Written by myself Dr. Blas: Josr Sanches is a 69-year-old male with a past medical history significant for hypertension in remission after significant weight loss, restless leg syndrome, diabetes mellitus type 2, non-insulin using and diet-controlled, GERD, and insomnia presented to the ED with worsening left lower quadrant abdominal pain. The patient reports that approximately 10 days ago he was diagnosed with diverticulitis and discharged from the ED on Augmentin. The patient reports he was doing well until last night around 7:00 p.m. when he developed a sharp stabbing pain in his left lower abdomen that was persistent. He reports the pain felt sharp and as though a knife with stabbing him in his side. He did not sleep well and the pain persisted until this morning prompting him to come to the emergency department. He denies any associated symptoms including headache, chest pain, shortness of breath, nausea, vomiting, fever, chills, constipation or diarrhea. The patient does report states that since his cholecystectomy his bowel movements have been looser. The patient was unable to eat or take his antibiotic last night and this morning due to the severity of his abdominal pain. He received morphine in the emergency department which controlled his pain. He reports he has had 3 flares of diverticulitis including current flare, with his last episode 4 years ago. ED course: CT abdomen and pelvis with contrast demonstrated worsening of diverticulitis without perforation or abscess formation. WBC 12.7 and procalcitonin 0.31 despite antibiotic therapy. Patient was admitted as inpatient for treatment of diverticulitis. Discharge Providers Provider Date of admission: 05/12/20 08:58 Discharge Date: 05/13/20 Primary care physician: BETH Mejia Consults: 05/12/20 08:55 Consult to General Surgery Stat Comment: Consulting Provider: Dajuan Hernandez Reason for consultation: abd pain Has provider been notified: Yes 05/12/20 11:32 Consult to Discharge Planning Routine Comment: Discharge provider: Kenia Blas DO Summary Hospital Course Discharge Diagnosis: 1. Acute diverticulitis, present on admission. Resolving. 2. Diabetes mellitus type 2, non-insulin using and diet-controlled, present on admission. Stable. 3. GERD, chronic, present on admission. Stable. 4. Insomnia, chronic, present on admission. Stable. 5. Restless leg syndrome, chronic, present on admission. Stable. Hospital Course: Josr Sanches is a 69-year-old male with a past medical history significant for hypertension in remission after significant weight loss, restless leg syndrome, diabetes mellitus type 2, non-insulin using and diet-controlled, GERD, and insomnia presented to the ED with worsening left lower quadrant abdominal pain. 1. Acute diverticulitis, present on admission. Resolving. -Patient recently diagnosed with diverticulitis 10 days ago and was on Augmentin when his left lower quadrant abdominal pain worsened acutely. -CT abdomen and pelvis with contrast demonstrated distal descending colon diverticulitis more prominent than on the 05/03/2020 examination. No evidence of perforation or abscess. -WBC 12.7 and procalcitonin 0.31. WBC normalized at 5.5. Continued to monitor WBC and procalcitonin daily. -Received levofloxacin 750 mg IV x1 and metronidazole 500 mg IV x1 in ED. Continued levofloxacin 750 mg daily and metronidazole 500 mg every 8 hours for 10 days to complete treatment. -Continued to advance diet slowly as tolerated. Patient reports he has had no difficulty with consuming his normal diet. -Continued pain control with acetaminophen 650 mg every 6 hours as needed for mild pain, oxycodone 5 mg every 4 hours as needed for moderate to severe pain and morphine 2 mg IV every 4 hours as needed for severe breakthrough pain. -Recommended outpatient general surgery consultation with his surgeon Dr. Hernandez as this is his 3rd diverticular flare and the patient likely needs colonoscopy once infection has resolved and/or preemptive partial colectomy. General surgery was contacted through the ED for inpatient consultation which does not seem to be needed. 2. Diabetes mellitus type 2, non-insulin using and diet-controlled, present on admission. Stable. -Hemoglobin A1c 5.6% indicative of excellent glycemic control. -Held metformin. -Continued [facility] blood glucose checks. If blood glucose levels are elevated will consider adding low-dose correctional scale insulin if needed. -Continued carbohydrate consistent diet. 3. GERD, chronic, present on admission. Stable. -Continued home Protonix 20 mg daily. 4. Insomnia, chronic, present on admission. Stable. -Continued home eszopiclone 3 mg daily at bedtime as needed for insomnia. 5. Restless leg syndrome, chronic, present on admission. Stable. -Continued home baclofen 30 mg daily at bedtime. Exam Vital Signs (past 8 hours): - 05/13/20 03:10 05/13/20 04:48 05/13/20 07:00 Temperature 98.9 F Pulse Rate 79 Respiratory Rate 18 Blood Pressure 137/83 Pulse Oximetry 95 97 99 05/13/20 08:00 Temperature Pulse Rate 72 Respiratory Rate 18 Blood Pressure 131/79 Pulse Oximetry 99 Oxygen Delivery Method Room Air Oxygen Flow Rate 0 Narrative Exam Narrative: General: Older gentleman sitting in bed and in no acute distress, well-developed, well-nourished, appropriately interactive. HEENT: Normocephalic, atraumatic. External ears without defect. Pupils equal, round, and reactive to light and accommodation. Anicteric sclerae, moist conjunctivae, and no lid lag. Oropharynx free of erythema and cobble stoning with moist mucosa. Neck: Supple with full range of motion. No jugular venous distension. No bruits. No lymphadenopathy or thyromegaly. Cardiovascular: Regular rate and rhythm without murmurs, rubs, or gallops appreciated Pulmonary: Clear to auscultation bilaterally without crackles, wheezes, or rhonchi. Normal respiratory effort with no use of accessory muscles. Abdomen: Soft, bowel sounds present, improved and now mild tenderness to palpationin left lateral/lower abdomen, nondistended. No rebound or evidence of surgical abdomen. No hepatosplenomegaly or masses appreciated. Extremities: No clubbing, cyanosis, or edema. Skin: Normal temperature, turgor, and texture; no rash, ulcers, or subcutaneous nodules appreciated. Neurological: Cranial nerves grossly intact. Psychiatric: Normal mood and affect. Alert and oriented to person, place, and time. Objective Labs Result Diagrams: 05/13/20 04:34 05/13/20 04:34 Labs: Laboratory Results - last 24 hr 05/12/20 05/12/20 05/12/20 06:55 06:55 09:17 WBC RBC Hgb Hct MCV MCH MCHC RDW Plt Count Neut % (Auto) Lymph % (Auto) [place] % (Auto) Eos % (Auto) Baso % (Auto) Neut # (Auto) Lymph # (Auto) [place] # (Auto) Eos # (Auto) Baso # (Auto) Sodium Potassium Chloride Carbon Dioxide BUN Creatinine Estimated GFR BUN/Creatinine Ratio Glucose Calcium Magnesium 1.5 L Procalcitonin 0.31 Urine Color Urine Appearance Urine pH Ur Specific [place] Urine Protein Urine Glucose (UA) Urine Ketones Urine Occult Blood Urine Nitrate Urine Bilirubin Urine Urobilinogen Ur Leukocyte Esterase Urine RBC Urine WBC Ur Squamous Epith Cells Urine Bacteria Ur Culture Indicated? COVID-19 PCR Negative 05/12/20 05/13/20 05/13/20 12:20 04:34 04:34 WBC 5.5 D RBC 3.86 L Hgb 12.0 L Hct 35.8 L MCV 92.9 MCH 31.1 MCHC 33.5 RDW 13.5 Plt Count 164 Neut % (Auto) 69.9 Lymph % (Auto) 17.8 L [place] % (Auto) 10.7 Eos % (Auto) 1.0 L Baso % (Auto) 0.6 Neut # (Auto) 3800 Lymph # (Auto) 1000 L [place] # (Auto) 600 Eos # (Auto) 100 Baso # (Auto) 0 Sodium Potassium Chloride Carbon Dioxide BUN Creatinine Estimated GFR BUN/Creatinine Ratio Glucose Calcium Magnesium Procalcitonin 0.22 Urine Color Yellow Urine Appearance Clear Urine pH 5.0 Ur Specific [place] 1.010 Urine Protein Negative Urine Glucose (UA) Negative Urine Ketones Negative Urine Occult Blood Negative Urine Nitrate Negative Urine Bilirubin Negative Urine Urobilinogen 0.2 Ur Leukocyte Esterase Negative Urine RBC 0-1/hpf Urine WBC 0-1/hpf Ur Squamous Epith Cells 0-1 /hpf Urine Bacteria None seen Ur Culture Indicated? Cult not indicated COVID-19 PCR 05/13/20 04:34 WBC RBC Hgb Hct MCV MCH MCHC RDW Plt Count Neut % (Auto) Lymph % (Auto) [place] % (Auto) Eos % (Auto) Baso % (Auto) Neut # (Auto) Lymph # (Auto) [place] # (Auto) Eos # (Auto) Baso # (Auto) Sodium 137 Potassium 3.7 Chloride 102 Carbon Dioxide 31 BUN 14 Creatinine 0.94 Estimated GFR > 60.0 BUN/Creatinine Ratio 14.9 Glucose 114 H Calcium 8.4 Magnesium 1.9 Procalcitonin Urine Color Urine Appearance Urine pH Ur Specific [place] Urine Protein Urine Glucose (UA) Urine Ketones Urine Occult Blood Urine Nitrate Urine Bilirubin Urine Urobilinogen Ur Leukocyte Esterase Urine RBC Urine WBC Ur Squamous Epith Cells Urine Bacteria Ur Culture Indicated? COVID-19 PCR Discharge Plan Discharge Plan Patient Disposition: Home Discharge comment: You are being discharged home. You have diverticulitis. Your antibiotics have been broadened and you have been prescribed metronidazole 500 mg 3 times daily and levofloxacin 750 mg daily for 10 days. You have been given a temporary prescription of oxycodone 5 mg twice daily if needed for severe pain. Please follow-up with your primary care provider, Joaquin CAMPOS, in the next 1 week regarding your hospitalization and referral to general surgery for evaluation and treatment of recurrent diverticulitis. Discharge orders & Medications Prescriptions: New metronidazole 500 mg tablet 500 mg PO TID Qty: 30 RF: 0 oxycodone 5 mg Tablet 5 mg PO BID Qty: 5 RF: 0 Continued baclofen 20 mg tablet 30 mg PO BEDTIME Qty: 65 RF: 0 esomeprazole magnesium 20 mg capsule,delayed release(DR/EC) See Rx Instructions .ROUTE .COMPLEX Qty: 90 RF: 3 metformin 1,000 mg tablet extended release 24hr 1,000 mg PO BID Qty: 180 RF: 3 (DME) One Touch Verio Test Strips Qty: 100 RF: 5 eszopiclone 3 mg tablet 3 mg PO BEDTIME PRN (Reason: insomnia) Qty: 90 RF: 0 Oxy Bile 1 tab PO ONCE PRN (Reason: Takes when he eats fatty foods) RF: 0 levofloxacin 750 mg tablet 750 mg PO DAILY Qty: 10 RF: 0 Discontinued amoxicillin-pot clavulanate [Augmentin] 875-125 mg tablet 1 tab PO Q12H Qty: 14 RF: 0 Follow up/Referrals: Joaquin Gee ARNP [Primary Care Provider] - 1 Week Diet/Activity/Treatments Diet: Diet as Tolerated, Carb-consistent/Diabetic, Low-fat, Low-sodium and Low-cholesterol Activity: Activity as tolerated Visit Report/Discharge Packet Instructions: Low-Fiber/Low-Residue Diet, DI for Diverticulitis Visit Report Forms: Patient Portal/API, Stroke Signs & Symptoms Discharge Data Primary Care Provider: Joaquin Gee Discharges patient from system. Discharge Date/Time: 05/13/20 13:18 Quality VTE Deep Vein Thrombosis/Pulmonary Embolism Present on Admission: No
[2020-05-13] MEDS: levoFLOXacin 750 MG/150 ML PIGGYBACK 100 MG IV (10:58)
[2020-05-13 11:00] VITALS: O2SAT 99
--- NOTE | 2020-05-13 11:33 | CM.DANOTE ---
Discharge Planning/Care Management DCP: assessment: case received, EMR reviewed and met with pt during Team Bedside Rounds. Introduced self and role. Pt is a 69 year old male who admitted yesterday to care of hospitalist team. CERAMICS ENGINEER: Joaquin Gee Payer: Medicare and [facility] Consulted: [facility]: Dr. Mary Blas explained to all that pt was being treated for acute diverticulitis and on antibiotics. She planned to advance his diet today and, if his pain was managed and he was tolerating diet she said he would likely be ok for d/c home later today. She said that Dr. Hernandez agreed with this plan and would like to see pt in the clinic setting to discuss other treatment options once this infection is treated. Pt said this plan sounded good to him. P: anticipate home later today as per above. If pt is NOT able to d/c, dcp team will check in tomorrow for any prn needs. CM Discharge Assessment Start: 05/13/20 11:32 Freq: Status: Active Protocol: Document 05/13/20 11:32 ITV (Rec: 05/13/20 11:33 ITV [id number]) Discharge Planning Assessment Advance Directives? Yes Advance Directives on File Yes History Provided By Patient,Medical Record Prior Living Arrangements House Household Members spouse Independent with ADL's Yes Is patient alert and oriented? Yes Review Status In Process
--- NOTE | 2020-05-22 00:09 | PC.NURSE ---
Late Entry: Levaquin infusion initiated 05/13 at 10:58, complete at 12:29.
== END 2020-05-13 13:18 | disposition home or self-care (01) ==
LOC: ED 08:57 → AC 08:59 → ICU 05-13 09:04 → AC 05-15 07:57 → ICU 05-15 07:57
PROVIDERS: Emergency Medicine; Admitting Provider Internal Medicine; Emergency Provider Emergency Medicine; PCP Registered Nurse Diabetes Educator; Referring Provider Emergency Medicine; Visit Provider Internal Medicine
DX: K57.32 Diverticulitis of large intestine without perforation or abscess without bleeding (principal); R10.32 Left lower quadrant pain; E11.9 Type 2 diabetes mellitus without complications; K21.9 Gastro-esophageal reflux disease without esophagitis; I10 Essential (primary) hypertension; G25.81 Restless legs syndrome; G47.00 Insomnia, unspecified; Z11.59 Encounter for screening for other viral diseases
CPT/HCPCS: 36415; 74177; 80048; 80053; 81001; 82962; 83690; 83735; 84145; 85025; 87635; 93005; 96361; 96365; 96366; 96367; 96375; 96376; 99284; G0378; J1956; J2270; J2405; Q9967

== ENCOUNTER → 2020-06-23 10:13 | Outpatient (CLI) | payer MEDICARE, OTHER, SELFPAY ==
[2020-05-12 18:52] VITALS: BMI 30.9
[2020-06-25 06:06] LABS: COVID19 Sendout Not Detected (Not Detect)
== END ==
PROVIDERS: PCP Registered Nurse Diabetes Educator; Visit Provider Physician Assistant
DX: Z01.812 Encounter for preprocedural laboratory examination (principal)
CPT/HCPCS: 87635

== ENCOUNTER 2020-06-26 06:47 | Day surgery (SDC) | payer MEDICARE, OTHER, SELFPAY ==
[2020-05-12 18:52] VITALS: BMI 30.9
--- NOTE | 2020-06-26 | PATH_ITS ---
[facility] Accession Number: [id number] . 01 Material submitted: . PART A: colon - ASCENDING COLON POLYP PART B: body - POLYP AT 90CM . 02 Diagnosis: A. Ascending Colon Polyp, Biopsy: Tubular adenoma. . B. Colon Polyp at 90 cm, Biopsy: Tubular adenoma. [facility] 06/28/2020 1600 Local . 02 Electronically signed: . Billy Cole MD, PhD, Pathologist NPI- [id number] . 01 Gross description: . A. Received in formalin, labeled polyp ascending colon, and consists of multiple zuñiga-pink fragments of soft tissue measuring 1.0 x 0.8 x 0.2 cm in aggregate. The specimen is entirely submitted in cassette A1. B. Received in formalin, labeled polyp at 90 cm, and consists of four zuñiga-pink fragments of soft tissue measuring 1.0 x 0.7 x 0.2 cm in aggregate. The specimen is entirely submitted in cassette B1. ([id number]) /MRV 06/27/2020 1232 Local . 02 Pathologist provided ICD-10: D12.2, D12.6 . 02 CPT . 165371, [id number] Performed at: 01 [facility] [address], [place], [place] [id number] MD Simon Navarro MD Phone: [phone] Performed at: 02 [facility] [address] [place], [place] [id number] MD Ofe Bernard MD Phone: [phone]
[2020-06-26 07:25] VITALS: BP 139/87; PULSE 86; RESP 15; TEMP 36.9; O2SAT 97; BMI 27.2
[2020-06-26] MEDS: LACTATED RINGERS 1,000 ML 42 ML IV (07:37)
--- NOTE | 2020-06-26 08:28 | PM.PREOP ---
Pre-operative Note COVID-19 COVID-19 status: Negative Result date/Date tested (Pos, Neg/Pending): 06/23/20 Interval Note History & Physical reviewed/Exam performed by Physician: Yes Changes to H&P: No ASA Class (for procedural sedation): II
[2020-06-26] MEDS: fentaNYL 250 MCG/5 ML INJ IV (08:45)
[2020-06-26] MEDS: MIDAZOLAM 5 MG/5 ML VIAL IV (08:45)
--- NOTE | 2020-06-26 09:01 | PM.OP.ENDO ---
Operative Date/Time/Diagnoses Date of procedure: 06/26/20 Time of procedure: 09:01 Pre-op diagnosis: Screening exam. This is his 1st colonoscopy. History of diverticulitis. Post-op diagnosis: same (Sigmoid diverticulosis. Two small polyps removed.) Procedure & Clinicians Study performed: Colonoscopy with cold biopsy Same procedure as scheduled: Yes Indications: Screening Surgeon: Dajuan Hernandez Procedure Notes SCOAP/Timeout: Performed Procedure in detail: The patient was placed in the left lateral decubitus position and underwent IV sedation directed by the surgeon consisting of fentanyl and Versed. Digital exam was unremarkable except for decreased sphincter tone. The scope was inserted and advanced through the rectum into the sigmoid, descending, transverse, and ascending colon. Patient was noted to have sigmoid diverticulosis.. The cecum was reached identified by the ileocecal valve and the appendiceal opening. The ileocecal valve was successfully cannulated. The terminal ileum was normal in appearance. The scope was gradually brought out. Polyps were found at the ascending colon and at 90 cm from the anal verge. Both were small and biopsied and appeared to be completely removed.. The scope ultimately was retroflexed in the rectum. The appearance was remarkable for small internal hemorrhoids. The scope was removed and the patient tolerated the procedure well. The prep was good. Scope withdrawal time: 8 minutes(19 total) Sedation minutes: 31 Findings: diverticulosis (Sigmoid) and polyp (Two small polyps) Specimen(s): other (Polyps) Complications: none Post-procedure Recommendations: Colonscopy in 5 years Follow up: as needed Disposition: PACU
[2020-06-26 09:06] VITALS: BP 146/86; PULSE 94; RESP 12; TEMP 36.6; O2SAT 92
[2020-06-26 09:11] VITALS: BP 114/90; PULSE 87; RESP 20; O2SAT 96
[2020-06-26 09:16] VITALS: BP 121/92; PULSE 94; RESP 15; O2SAT 97
[2020-06-26 09:20] VITALS: BP 125/90; PULSE 82; RESP 18; TEMP 36.6; O2SAT 96
[2020-06-26 09:26] VITALS: BP 124/85; PULSE 83; RESP 20; O2SAT 96
--- NOTE | 2020-07-16 18:54 | PM.HP.1 ---
History of Present Illness History of Present Illness Date Patient Seen: 06/26/20 Time Patient Seen: 08:00 Chief complaint: SDC Narrative: The patient is a gentleman who has not had a colonoscopy. He had recent bout of diverticulitis and is here for evaluation to make sure that malignancy was not the actual source of his colonic inflammation and for a screening examination for colon cancer prevention. Patient History Medical History Actinic keratosis (Resolved) Diabetes (Chronic 2009) Diverticular disease (Chronic 2006) GERD (gastroesophageal reflux disease) (Acute) Hypertension (Chronic 2006) Insomnia (Acute) Low back pain (Chronic 1999) Melanoma (Resolved 2009) Restless leg syndrome (Chronic) Surgical History History of umbilical hernia repair (Resolved) Status post cholecystectomy (2014) Family & Social History Family History Father CAD (coronary artery disease) Mother Breast cancer Grandfather No problems noted. Grandmother No problems noted. Grandfather No problems noted. Grandmother No problems noted. Social History: household members spouse Tobacco & Substance use: Tobacco type cigarettes Smoking Status Former smoker alcohol intake current alcohol intake frequency 0-2 drinks per day Substance Use Type does not use Meds Home Medications and Allergies Home Medications Medication Instructions Recorded Confirmed Type Oxy Bile 1 tab PO ONCE PRN 03/02/19 06/26/20 History esomeprazole magnesium 20 mg See Rx Instructions .ROUTE 03/27/20 06/26/20 Rx capsule,delayed release .COMPLEX #90 cap metformin 1,000 mg tablet,extended 1,000 mg PO BID #180 tab 04/06/20 06/26/20 Rx release 24hr One Touch Verio Test Strips #100 each 04/12/20 05/23/20 Rx oxycodone 5 mg tablet 5 mg PO BID PRN #10 tab 05/15/20 06/26/20 Rx eszopiclone 3 mg tablet 3 mg PO BEDTIME PRN #90 tab 07/03/20 Rx baclofen 20 mg tablet 30 mg PO BEDTIME #45 tab 07/13/20 Rx Allergies Allergy/AdvReac Type Severity Reaction Status Date / Time pneumococcal vaccine Allergy Verified 05/23/20 10:29 Review of Systems Review of Systems Narrative: No cardiac or pulmonary symptoms at this time. Patient's abdominal pain has resolved. No black or bloody bowel movements. No seizures or blackouts. He is diabetic but his sugars are well controlled. Exam Vital Signs (past 8 hours): Oxygen Delivery Method Room Air Narrative Exam Narrative: Pleasant cooperative patient no apparent distress. Lungs are clear to auscultation. No rales or rhonchi. Heart regular rate and rhythm no murmur gallop. Abdomen is soft nontender without mass. A bit overweight. No obvious hernias. Patient is alert and oriented x3. Assessment & Plan Assessment & Plan narrative: The patient for a screening colonoscopy. I have discussed the procedure with them. Risks of bleeding, perforation which would necessitate major operation, failure to find remove all lesions, the potential tattoo were all discussed. All questions were answered. They wished to proceed.
== END 2020-06-26 09:45 | disposition home or self-care (01) ==
PROVIDERS: PCP Registered Nurse Diabetes Educator; Referring Provider Registered Nurse Diabetes Educator; Visit Provider Specialist
PROC: 0DJD8ZZ Inspection of Lower Intestinal Tract, Via Natural or Artificial Opening Endoscopic (ICD-10-PCS; CPT 45378; principal; 2020-06-26 07:45)
DX: Z12.11 Encounter for screening for malignant neoplasm of colon (principal); Z87.19 Personal history of other diseases of the digestive system; K57.30 Diverticulosis of large intestine without perforation or abscess without bleeding; K64.8 Other hemorrhoids; D12.2 Benign neoplasm of ascending colon; D12.6 Benign neoplasm of colon, unspecified
CPT/HCPCS: 45380; 99152; 99153; J2250; J3010

== ENCOUNTER 2021-01-04 07:17 | Emergency (ER) | payer MEDICARE, OTHER, SELFPAY ==
[2020-05-12 18:52] VITALS: BMI 30.9
--- NOTE | 2021-01-04 07:23 | ED.GENADULT ---
HPI - General Adult General Chief complaint: Abdominal Pain Stated complaint: pain in left side Time Seen by Provider: 01/04/21 07:23 History of Present Illness HPI narrative: 70-year-old gentleman with a history of diabetes, reflux, chronic back pain and recurrent diverticulitis, most recent episode with eventual hospitalization for IV antibiotics in April and May of 2020. Symptoms eventually resolved and he was seen as an outpatient in [facility] with colonoscopy performed June 26 that showed no significant strictures, sigmoid diverticulosis and small internal hemorrhoids only. He presents today complaining again of left lower quadrant pain. He denies fevers, vomiting he notes his chronic diarrhea after cholecystectomy is unchanged and nonbloody, no chest pain, palpitations, dizziness or headaches, no change to lower extremity edema. Related Data Home Medications Medication Instructions Recorded Confirmed Oxy Bile 1 tab PO ONCE PRN 03/02/19 06/26/20 Previous Rx's Medication Instructions Recorded esomeprazole magnesium 20 mg See Rx Instructions .ROUTE 03/27/20 capsule,delayed release .COMPLEX #90 cap metformin 1,000 mg tablet,extended 1,000 mg PO BID #180 tab 04/06/20 release 24hr One Touch Verio Test Strips #100 each 04/12/20 oxycodone 5 mg tablet 5 mg PO BID PRN #10 tab 05/15/20 eszopiclone 3 mg tablet 3 mg PO BEDTIME PRN #90 tab 10/03/20 baclofen 20 mg tablet 30 mg PO BEDTIME #45 tab 10/06/20 ciprofloxacin HCl [Cipro] 500 mg PO BID #20 tab 01/04/21 ciprofloxacin HCl [Cipro] 500 mg PO BID #20 tab 01/04/21 ciprofloxacin HCl [Cipro] 500 mg PO BID #30 tab 01/04/21 metronidazole 500 mg PO TID #30 tab 01/04/21 metronidazole [Flagyl] 500 mg PO TID #30 tab 01/04/21 metronidazole [Flagyl] 500 mg PO TID #30 tab 01/04/21 oxycodone-acetaminophen 1 tab PO Q6H PRN #10 tab 01/04/21 oxycodone-acetaminophen 1 tab PO Q6H PRN #14 tab 01/04/21 oxycodone-acetaminophen 1 tab PO Q6H PRN #14 tab 01/04/21 Allergies Allergy/AdvReac Type Severity Reaction Status Date / Time pneumococcal vaccine Allergy Verified 01/04/21 07:32 Review of Systems Review of Systems Narrative: Remainder of complete review of systems is otherwise unremarkable except for that included in the HPI. Patient History Medical History Actinic keratosis Diabetes (2010) Diverticulosis of sigmoid colon GERD (gastroesophageal reflux disease) Hypertension (2006) Insomnia Low back pain (1999) Melanoma (2009) Restless leg syndrome Surgical History History of umbilical hernia repair Status post cholecystectomy (2014) Family History Father CAD (coronary artery disease) Mother Breast cancer Grandfather No problems noted. Grandmother No problems noted. Grandfather No problems noted. Grandmother No problems noted. Social History household members: spouse Smoking Status: Former smoker Tobacco: How many years used: 20 second hand exposure: No alcohol intake: current substance use type: does not use Smoking Status: Former smoker alcohol intake frequency: 0-2 drinks per day Substance Use Type: does not use Exam Narrative Exam Narrative: General: Healthy appearing, in no acute distress. Able to give a complete and coherent history. Well-nourished well-developed HEENT: Moist mucous membranes, normal sclera with reactive pupils, Respiratory: Lungs are clear to auscultation, no wheezing no rales no rhonchi. Full and symmetrical air movement Cardiac: Regular rate and rhythm no murmurs no bruits Abdomen: Soft, mild tenderness left lower quadrant without rebound or guarding, good bowel tones, no flank pain Skin: Warm and dry, no rashes Neurologic: Grossly neurologically intact with no obvious asymmetries or abnormalities Extremities: No trauma, well perfused Psych: Cooperative, appropriate insight and affect Initial Vital Signs Initial Vital Signs: Vital Signs Pulse Rate 87 01/04/21 07:25 Pulse Oximetry 97 01/04/21 07:25 Course Orders Ordered: ED Orders 01/04/21 07:40 Complete Blood Count AUTO DIFF Stat Comprehensive Metabolic Panel Stat Lipase Stat Discontinued Medications Hydromorphone HCl (Hydromorphone 0.5 Mg Inj) 0.5 mg IV Q15MIN PRN PRN Reason: Pain, Last Admin: 01/04/21 07:56 Dose: 0.5 mg Documented by: NANCY Sodium Chloride (Normal Saline 0.9%) 1,000 mls @ 1,000 mls/hr IV BOLUS ONE Stop: 01/04/21 08:45 Last Infusion: 01/04/21 09:35 Dose: 0 mls/hr Documented by: Admin: 01/04/21 07:56 Dose: 1,000 mls/hr Documented by: NANCY Levofloxacin (Levaquin) 750 mg in 150 mls @ 100 mls/hr IV NOW ONE Stop: 01/04/21 09:15 Last Infusion: 01/04/21 09:35 Dose: 0 mls/hr Documented by: Admin: 01/04/21 07:57 Dose: 100 mls/hr Documented by: NANCY Ondansetron HCl (Ondansetron 4 Mg/2 Ml Inj) 4 mg IV NOW ONE Stop: 01/04/21 07:47 Last Admin: 01/04/21 07:56 Dose: 4 mg Documented by: NANCY Vital Signs Vital signs: Vital Signs - 8 hr 01/04/21 09:37 01/04/21 09:58 Pulse Rate 70 76 Respiratory Rate 18 Blood Pressure 144/96 H 144/96 H Pulse Oximetry 96 100 Medical Decision Making Medical Records Medical records reviewed: Yes I reviewed the patient's medical records. Lab Data Lab results reviewed: Yes I reviewed the patient's lab results. Result diagrams: 01/04/21 07:40 01/04/21 07:40 Labs: Lab Results 01/04/21 01/04/21 Range/Units 07:40 07:40 WBC 5.2 (4.5-11.0) X10^3/uL RBC 4.44 L (4.5-5.9) X10^6/uL Hgb 13.3 L (13.5-17.5) g/dL Hct 41.4 (41-53) % MCV 93.1 (80-100) fL MCH 29.9 (26-34) PG MCHC 32.2 (30-36) % RDW 15.2 H (11.6-14.8) % Plt Count 238 (150-400) X10^3/uL Neut % (Auto) 63.2 (50-75) % Lymph % (Auto) 25.5 (25-40) % [place] % (Auto) 8.9 (3-14) % Eos % (Auto) 1.8 L (2-4) % Baso % (Auto) 0.6 (0-2) % Neut # (Auto) 3300 (6368-3616) /uL Lymph # (Auto) 1300 (0134-1733) /uL [place] # (Auto) 500 (0-900) /uL Eos # (Auto) 100 (0-450) /uL Baso # (Auto) 0 (0-100) /uL Sodium 139 (137-145) mmol/L Potassium 4.5 (3.4-5.1) mmol/L Chloride 108 H (98-107) mmol/L Carbon Dioxide 22 (22-32) mmol/L BUN 24 H (9-20) mg/dL Creatinine 1.13 (0.66-1.25) mg/dL Estimated GFR > 60.0 (>60) mL/min BUN/Creatinine Ratio 21.2 (6-22) Glucose 109 (80-110) mg/dL Calcium 9.3 (8.4-10.2) mg/dL Total Bilirubin 0.3 (0.2-1.3) mg/dL AST 25 (17-59) IU/L ALT 23 (<50) IU/L Alkaline Phosphatase 41 (38-126) U/L Total Protein 7.5 (6.3-8.2) g/dL Albumin 4.3 (3.5-5.0) g/dL Globulin 3.2 (1.7-4.1) g/dL Albumin/Globulin Ratio 1.3 (1.0-2.8) Lipase 59 (23-300) U/L [facility] Narrative Medical decision making narrative: 70-year-old gentle with a history of recurrent diverticulitis with a recurrent symptoms. Recent colonoscopy suggesting no significant sigmoid stricture or pathology that would require any advanced imaging given his usual recurrent symptoms today. Labs are reassuring. Pain has been controlled with single dose of Dilaudid in the emergency department. Given IV Levaquin in the ER and will be discharged home with 10 days of Flagyl and Cipro which has been successful for him in the past. Loss can follow-up with his primary care physician. Reviewed signs and symptoms of worsening disease and sepsis and encouraged him to return to the ER should he have any complications Discharge Plan Departure Patient Disposition: Home Clinical Impression: Diverticulitis Instructions: DI for Diverticulitis Activity Restrictions/Additional Instructions: Thank you for coming in today I am sorry you are having yet another episode of diverticulitis. Your lab work was reassuring, your history and exam are entirely consistent with uncomplicated diverticulitis. Your given a dose of IV antibiotics in the emergency department and of the prescription of both ciprofloxacin and Flagyl (the 1 where he can not drink any alcohol) to complete over the next 10 days. You can use an occasional Percocet sparingly if the lower abdominal pain is severe. This is a narcotic and typically causes constipation. 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 Prescriptions: New ciprofloxacin HCl [Cipro] 500 mg tablet 500 mg PO BID Qty: 20 RF: 0 metronidazole 500 mg tablet 500 mg PO TID Qty: 30 RF: 0 oxycodone-acetaminophen 5-325 mg tablet 1 tab PO Q6H PRN (Reason: pain) Qty: 10 RF: 0 ciprofloxacin HCl [Cipro] 500 mg tablet 500 mg PO BID Qty: 30 RF: 0 oxycodone-acetaminophen 5-325 mg tablet 1 tab PO Q6H PRN (Reason: pain) Qty: 14 RF: 0 metronidazole [Flagyl] 500 mg tablet 500 mg PO TID Qty: 30 RF: 0 oxycodone-acetaminophen 5-325 mg tablet 1 tab PO Q6H PRN (Reason: pain) Qty: 14 RF: 0 ciprofloxacin HCl [Cipro] 500 mg tablet 500 mg PO BID Qty: 20 RF: 0 metronidazole [Flagyl] 500 mg tablet 500 mg PO TID Qty: 30 RF: 0 No Action esomeprazole magnesium 20 mg capsule,delayed release(DR/EC) See Rx Instructions .ROUTE .COMPLEX Qty: 90 RF: 3 metformin 1,000 mg tablet extended release 24hr 1,000 mg PO BID Qty: 180 RF: 3 (DME) One Touch Verio Test Strips Qty: 100 RF: 5 eszopiclone 3 mg tablet 3 mg PO BEDTIME PRN (Reason: insomnia) Qty: 90 RF: 0 baclofen 20 mg tablet 30 mg PO BEDTIME Qty: 45 RF: 2 Oxy Bile 1 tab PO ONCE PRN (Reason: Takes when he eats fatty foods) RF: 0 oxycodone 5 mg tablet 5 mg PO BID PRN (Reason: pain) Qty: 10 RF: 0 Referrals: Joaquin Gee ARNP [Primary Care Provider] -
[2021-01-04 07:25] VITALS: PULSE 87; O2SAT 97
[2021-01-04 07:29] VITALS: BP 156/100; PULSE 88; RESP 17; TEMP 36.7; O2SAT 98
[2021-01-04 07:54] LABS: Add Manual Diff / Slide Review NO; Basophils Absolute Auto 0 /uL (0-100); Basophils Percent Auto 0.6 % (0-2); Eosinophils Absolute Auto 100 /uL (0-450); Eosinophils Percent Auto 1.8 % (2-4); Hematocrit 41.4 % (41-53); Hemoglobin 13.3 g/dL (13.5-17.5); Lymphocytes Absolute Auto 1300 /uL (1100-4500); Lymphocytes Percent Auto 25.5 % (25-40); Mean Corpuscular HGB Conc 32.2 % (30-36); Mean Corpuscular Hemoglobin 29.9 PG (26-34); Mean Corpuscular Volume 93.1 fL (80-100); Monocytes Absolute Auto 500 /uL (0-900); Monocytes Percent Auto 8.9 % (3-14); Neutrophils Absolute Auto 3300 /uL (1500-7000); Neutrophils Percent Auto 63.2 % (50-75); Platelet Count 238 X10^3/uL (150-400); Red Blood Cell Count 4.44 X10^6/uL (4.5-5.9); Red Cell Distribution Width 15.2 % (11.6-14.8); White Blood Cell Count 5.2 X10^3/uL (4.5-11.0)
[2021-01-04] MEDS: ONDANSETRON 4 MG/2 ML INJ IV (07:56)
[2021-01-04] MEDS: SODIUM CHLORIDE 0.9% 1,000 ML 1000 ML IV (07:56)
[2021-01-04] MEDS: HYDROMORPHONE 0.5 MG INJ IV (07:56)
[2021-01-04] MEDS: levoFLOXacin 750 MG/150 ML PIGGYBACK 100 MG IV (07:57)
[2021-01-04 08:02] LABS: Alanine Aminotransferase 23 IU/L (<50); Albumin 4.3 g/dL (3.5-5.0); Albumin Globulin Ratio 1.3 (1.0-2.8); Alkaline Phosphatase 41 U/L (38-126); Aspartate Aminotransferase 25 IU/L (17-59); BUN Creatinine Ratio 21.2 (6-22); Bilirubin Total 0.3 mg/dL (0.2-1.3); Blood Urea Nitrogen 24 mg/dL (9-20); Calcium 9.3 mg/dL (8.4-10.2); Carbon Dioxide 22 mmol/L (22-32); Chloride 108 mmol/L (98-107); Estimated Glomerular Filt Rate > 60.0 mL/min (>60); Globulin 3.2 g/dL (1.7-4.1); Glucose 109 mg/dL (80-110); HEMOLYSIS < 15 (0-50); Lipase 59 U/L (23-300); Potassium 4.5 mmol/L (3.4-5.1); Sodium 139 mmol/L (137-145); Total Protein 7.5 g/dL (6.3-8.2)
[2021-01-04 09:37] VITALS: BP 144/96; PULSE 70; PULSE 76; O2SAT 96
[2021-01-04 09:58] VITALS: BP 144/96; PULSE 76; RESP 18; O2SAT 100
== END 2021-01-04 09:58 | disposition home or self-care (01) ==
PROVIDERS: Emergency Provider Emergency Medicine; PCP Registered Nurse Diabetes Educator
DX: K57.92 Diverticulitis of intestine, part unspecified, without perforation or abscess without bleeding (principal)
CPT/HCPCS: 36415; 80053; 83690; 85025; 96365; 96366; 96375; 99284; J1170; J1956; J2405

== ENCOUNTER → 2021-01-10 08:11 | Outpatient (CLI) | payer MEDICARE, OTHER, SELFPAY ==
[2020-05-12 18:52] VITALS: BMI 30.9
[2021-01-10 08:52] LABS: Hematocrit 39.6 % (41-53); Hemoglobin 13.5 g/dL (13.5-17.5); Mean Corpuscular HGB Conc 34.2 % (30-36); Mean Corpuscular Hemoglobin 31.6 PG (26-34); Mean Corpuscular Volume 92.5 fL (80-100); Platelet Count 227 X10^3/uL (150-400); Red Blood Cell Count 4.28 X10^6/uL (4.5-5.9); Red Cell Distribution Width 14.7 % (11.6-14.8); White Blood Cell Count 4.2 X10^3/uL (4.5-11.0)
[2021-01-10 09:00] LABS: Hemoglobin A1C% w Est Avg Glu 5.4 % (4.0-6.0)
[2021-01-10 09:10] LABS: Alanine Aminotransferase 41 IU/L (<50); Albumin 4.2 g/dL (3.5-5.0); Albumin Globulin Ratio 1.4 (1.0-2.8); Alkaline Phosphatase 36 U/L (38-126); Aspartate Aminotransferase 39 IU/L (17-59); BUN Creatinine Ratio 17.5 (6-22); Bilirubin Total 0.4 mg/dL (0.2-1.3); Blood Urea Nitrogen 21 mg/dL (9-20); Calcium 9.5 mg/dL (8.4-10.2); Carbon Dioxide 25 mmol/L (22-32); Chloride 107 mmol/L (98-107); Cholesterol 145 mg/dL (140-199); Estimated Glomerular Filt Rate 59.7 mL/min (>60); Globulin 2.9 g/dL (1.7-4.1); Glucose 111 mg/dL (80-110); HDL Cholesterol 42 mg/dL (40-60); HEMOLYSIS < 15 (0-50); LDL Cholesterol Calculated 69 mg/dL (<100); Potassium 4.7 mmol/L (3.4-5.1); Sodium 140 mmol/L (137-145); Total Protein 7.1 g/dL (6.3-8.2); Triglycerides 168 mg/dL (35-150)
[2021-01-10 09:41] LABS: TSH w/ Reflex to FT4 1.19 uIU/mL (0.47-4.68)
[2021-01-10 09:46] LABS: Creatinine Urine Random 114.3 mg/dL
[2021-01-10 10:08] LABS: Microalbumin Urine Random < 0.6 mg/dL (0-1.6)
== END ==
PROVIDERS: PCP Registered Nurse Diabetes Educator; Referring Provider Registered Nurse Diabetes Educator; Visit Provider Registered Nurse Diabetes Educator
DX: E11.9 Type 2 diabetes mellitus without complications (principal); N28.9 Disorder of kidney and ureter, unspecified; I10 Essential (primary) hypertension; E78.5 Hyperlipidemia, unspecified
CPT/HCPCS: 36415; 80053; 80061; 82043; 82570; 83036; 84443; 85027

== ENCOUNTER → 2021-05-09 08:50 | Outpatient (CLI) | payer MEDICARE, OTHER, SELFPAY ==
[2020-05-12 18:52] VITALS: BMI 30.9
[2021-05-09 11:56] LABS: COVID19 -Nasal RAPID Negative (Negative)
== END ==
PROVIDERS: PCP Registered Nurse Diabetes Educator; Visit Provider Specialist
DX: Z01.812 Encounter for preprocedural laboratory examination (principal); Z20.822 Contact with and (suspected) exposure to COVID-19
CPT/HCPCS: 87635; C9803

== ENCOUNTER 2021-05-10 11:03 | Day surgery (SDC) | payer MEDICARE, OTHER, SELFPAY ==
[2020-05-12 18:52] VITALS: BMI 30.9
[2021-05-08 15:05] VITALS: BMI 30.1
[2021-05-10] VITALS (9 sets, daily range): BP systolic 147–166; BP diastolic 73–97; PULSE 78–100; RESP 10–96; TEMP 36.7–37.1; O2SAT 11–100; BMI 30.1
[2021-05-10] MEDS: LACTATED RINGERS 1,000 ML 100 ML IV ×2 (12:13→14:02)
--- NOTE | 2021-05-10 12:17 | PM.PREOP ---
Pre-operative Note COVID-19 COVID-19 status: Negative Result date/Date tested (Pos, Neg/Pending): 05/09/21 Interval Note History & Physical reviewed/Exam performed by Physician: Yes Changes to H&P: No
[2021-05-10] MEDS: CEFAZOLIN 1 GM VIAL 2 GM IV (13:18)
[2021-05-10] MEDS: BUPIVACAINE 0.5% (PF) VIAL 30 ML INJ (13:37)
--- NOTE | 2021-05-10 13:39 | SUR.OPER ---
Supine on padded OR bed, head on pillow, arms secured on padded arm boards at <90 degrees abduction, legs uncrossed, safety belt at thigh, tape over blanket over lower legs.
--- NOTE | 2021-05-10 14:45 | PM.OP.1 ---
Operative Date/Time/Diagnoses Date of procedure: 05/10/21 Time of procedure: 14:45 Pre-op diagnosis: Two ventral hernias Post-op diagnosis: same Procedure & Clinicians Procedure: Repair. One was a primary repair without mesh. One was a primary repair with an underlay of mesh Same procedure as scheduled: Yes Indications: Symptomatic ventral hernias found on CT scan. Patient's size made it difficult to identify these lesions clinically. Patient also had a diastasis recti the which made it also difficult to identify these. Surgeon: Dajuan Hernandez Click Yes if Unassisted: Yes Anesthesia Type: General Operative Notes Findings: 2 separate ventral hernias. Both contained preperitoneal fat Closure Type: primary Specimen(s): none sent Prosthetic devices, grafts, tissues, transplants, or devices: 1.7 in diameter circular mesh Estimated Blood Loss (mL): 7 Blood products transfused: none Procedure in detail: The patient was placed supine on the operating room table underwent general LMA anesthesia. He was prepped and draped in the usual fashion. Vertical incision was made with the patient indicated his symptoms were which was above the umbilicus. It was carried down to the level of fascia and I identified a very small defect in the fascia. I cleared the preperitoneal fat from the fascial edge and reduced it. I dissected up along the midline and identified a 2nd defect. I had to extend the incision to adequately treat it. This had a large piece of fat protruding through it which could not be reduced. I cleared the fascial edge and ligated portion of this fat and reduced the remainder. I returned to the 1st hernia defect and cleared the fascial edge of tissue and preperitoneal fat. The defect was actually a little larger than I initially thought it was. I was able to insert a finger in feel under the fascial edge along a portion of the upper abdominal wall. I could feel the 2nd defect I had already dissected out and could feel none above it is far as I could insert my finger. The 2nd defect was too small for me to insert a finger and I did not extended. With no other hernias palpated and no hernia inferior at the umbilicus I set about repairing the hernias. The larger of the 2 closest to the umbilicus had a 1.7 in round piece of mesh placed under it and and the defect was sutured closed with interrupted and figure of 8 0 Ethibond suture incorporating the tails of this circular mesh into the closure. The 2nd hernia defect was closed with figure of 8 0 Ethibond sutures without mesh. SubQ was closed with interrupted 3-0 Vicryl. It was also a layer placed superficially of 4-0 Vicryl and the skin was closed a running 4-0 Vicryl subcuticular stitch and Steri-Strips. Dressing was applied the patient was awakened extubated and taken the recovery area in good condition. Complications: none Post-operative Condition: stable Disposition: PACU
[2021-05-10] MEDS: OXYCODONE/ACETAMINOPHEN 5/325 TABLET 1 TAB PO ×2 (14:54→15:24)
== END 2021-05-10 15:58 | disposition home or self-care (01) ==
PROVIDERS: PCP Registered Nurse Diabetes Educator; Referring Provider Specialist; Visit Provider Specialist
PROC: (CPT 49561; principal; 2021-05-10 12:30)
DX: K43.0 Incisional hernia with obstruction, without gangrene (principal); K43.9 Ventral hernia without obstruction or gangrene; M62.08 Separation of muscle (nontraumatic), other site; I10 Essential (primary) hypertension; K21.9 Gastro-esophageal reflux disease without esophagitis
CPT/HCPCS: 49561; 49568; 82962; C1781; J0690; J1100; J1885; J2250; J2405; J2704; J3010

== ENCOUNTER → 2021-05-20 07:45 | Outpatient (CLI) | payer MEDICARE, OTHER, SELFPAY ==
[2020-05-12 18:52] VITALS: BMI 30.9
[2021-05-20 08:17] LABS: Hematocrit 42.7 % (41-53); Hemoglobin 14.2 g/dL (13.5-17.5); Mean Corpuscular HGB Conc 33.3 % (30-36); Mean Corpuscular Hemoglobin 30.7 PG (26-34); Mean Corpuscular Volume 92.2 fL (80-100); Platelet Count 232 X10^3/uL (150-400); Red Blood Cell Count 4.63 X10^6/uL (4.5-5.9); Red Cell Distribution Width 13.7 % (11.6-14.8); White Blood Cell Count 4.8 X10^3/uL (4.5-11.0)
[2021-05-20 08:33] LABS: Hemoglobin A1C% w Est Avg Glu 5.5 % (4.0-6.0)
[2021-05-20 08:50] LABS: BUN Creatinine Ratio 23.4 (6-22); Blood Urea Nitrogen 22 mg/dL (9-20); Calcium 9.6 mg/dL (8.4-10.2); Carbon Dioxide 29 mmol/L (22-32); Chloride 103 mmol/L (98-107); Cholesterol 191 mg/dL (140-199); Estimated Glomerular Filt Rate > 60.0 mL/min (>60); Glucose 109 mg/dL (80-110); HDL Cholesterol 44 mg/dL (40-60); HEMOLYSIS 37 (0-50); LDL Cholesterol Calculated 99 mg/dL (<100); Sodium 139 mmol/L (137-145); Triglycerides 241 mg/dL (35-150)
[2021-05-20 08:51] LABS: Potassium 5.4 mmol/L (3.4-5.1)
== END ==
PROVIDERS: PCP Registered Nurse Diabetes Educator; Referring Provider Registered Nurse Diabetes Educator; Visit Provider Registered Nurse Diabetes Educator
DX: E11.9 Type 2 diabetes mellitus without complications (principal); D64.9 Anemia, unspecified; E78.5 Hyperlipidemia, unspecified; N28.9 Disorder of kidney and ureter, unspecified; I10 Essential (primary) hypertension
CPT/HCPCS: 36415; 80048; 80061; 83036; 85027

== ENCOUNTER → 2021-06-09 09:24 | Outpatient (CLI) | payer MEDICARE, OTHER, SELFPAY ==
[2021-05-22 10:42] VITALS: BMI 30.9
[2021-06-09 09:53] LABS: COVID19 -Nasal RAPID Negative (Negative)
== END ==
PROVIDERS: PCP Registered Nurse Diabetes Educator; Visit Provider Nurse Practitioner Family
DX: Z20.822 Contact with and (suspected) exposure to COVID-19 (principal); R51.9 Headache, unspecified
CPT/HCPCS: 87635

== ENCOUNTER → 2022-01-17 07:47 | Outpatient (CLI) | payer MEDICARE, OTHER, SELFPAY ==
[2021-05-22 10:42] VITALS: BMI 30.9
[2022-01-17 08:14] LABS: Hemoglobin 14.4 g/dL (13.5-17.5); Mean Corpuscular HGB Conc 33.5 % (30-36); Mean Corpuscular Volume 92.5 fL (80-100); Platelet Count 226 X10^3/uL (150-400); Red Blood Cell Count 4.65 X10^6/uL (4.5-5.9); Red Cell Distribution Width 14.3 % (11.6-14.8); White Blood Cell Count 3.8 X10^3/uL (4.5-11.0)
[2022-01-17 08:51] LABS: Hemoglobin A1C% w Est Avg Glu 5.7 % (4.0-6.0)
[2022-01-17 08:53] LABS: Alanine Aminotransferase 24 IU/L (<50); Albumin 4.4 g/dL (3.5-5.0); Albumin Globulin Ratio 1.6 (1.0-2.8); Alkaline Phosphatase 24 U/L (38-126); Aspartate Aminotransferase 27 IU/L (17-59); BUN Creatinine Ratio 18.4 (6-22); Bilirubin Total 0.5 mg/dL (0.2-1.3); Blood Urea Nitrogen 25 mg/dL (9-20); Calcium 9.3 mg/dL (8.4-10.2); Carbon Dioxide 29 mmol/L (22-32); Chloride 104 mmol/L (98-107); Cholesterol 191 mg/dL (140-199); Estimated Glomerular Filt Rate 55 mL/min (>60); Globulin 2.8 g/dL (1.7-4.1); Glucose 111 mg/dL (80-110); HDL Cholesterol 57 mg/dL (40-60); HEMOLYSIS < 15 (0-50); LDL Cholesterol Calculated 116 mg/dL (<100); Potassium 4.5 mmol/L (3.4-5.1); Sodium 140 mmol/L (137-145); Total Protein 7.2 g/dL (6.3-8.2); Triglycerides 91 mg/dL (35-150)
[2022-01-17 09:04] LABS: Creatinine Urine Random 107.7 mg/dL
[2022-01-17 09:12] LABS: Microalbumi Creatinin Ratio Ur 10.2 ug/mg CR (<30); Microalbumin Urine Random 1.1 mg/dL (0-1.6)
[2022-01-17 11:48] LABS: TSH w/ Reflex to FT4 1.69 uIU/mL (0.47-4.68)
== END ==
PROVIDERS: PCP Registered Nurse Diabetes Educator; Referring Provider Registered Nurse Diabetes Educator; Visit Provider Registered Nurse Diabetes Educator
DX: E11.9 Type 2 diabetes mellitus without complications (principal); E78.5 Hyperlipidemia, unspecified; I10 Essential (primary) hypertension
CPT/HCPCS: 36415; 80053; 80061; 82043; 82570; 83036; 84443; 85027

== ENCOUNTER → 2022-05-08 08:56 | Outpatient (CLI) | payer MEDICARE, OTHER, SELFPAY ==
[2021-05-22 10:42] VITALS: BMI 30.9
[2022-05-08 11:09] LABS: Hemoglobin A1C% w Est Avg Glu 5.6 % (4.0-6.0)
[2022-05-08 11:22] LABS: BUN Creatinine Ratio 22.6 (6-22); Blood Urea Nitrogen 26 mg/dL (9-20); Calcium 9.4 mg/dL (8.4-10.2); Carbon Dioxide 28 mmol/L (22-32); Chloride 105 mmol/L (98-107); Cholesterol 182 mg/dL (140-199); Estimated Glomerular Filt Rate > 60 mL/min (>60); Glucose 105 mg/dL (80-110); HDL Cholesterol 55 mg/dL (40-60); HEMOLYSIS < 15 (0-50); LDL Cholesterol Calculated 99 mg/dL (<100); Potassium 4.3 mmol/L (3.4-5.1); Sodium 141 mmol/L (137-145); Triglycerides 138 mg/dL (35-150)
== END ==
PROVIDERS: PCP Registered Nurse Diabetes Educator; Referring Provider Registered Nurse Diabetes Educator; Visit Provider Registered Nurse Diabetes Educator
DX: E11.9 Type 2 diabetes mellitus without complications (principal); E78.5 Hyperlipidemia, unspecified; N28.9 Disorder of kidney and ureter, unspecified
CPT/HCPCS: 36415; 80048; 80061; 83036

== ENCOUNTER → 2023-02-04 07:31 | Outpatient (CLI) | payer MEDICARE, OTHER, SELFPAY ==
[2021-05-22 10:42] VITALS: BMI 30.9
[2023-02-04 08:50] LABS: Hematocrit 43.3 % (41-53); Hemoglobin 14.9 g/dL (13.5-17.5); Mean Corpuscular HGB Conc 34.3 % (30-36); Mean Corpuscular Hemoglobin 31.7 PG (26-34); Mean Corpuscular Volume 92.5 fL (80-100); Platelet Count 219 X10^3/uL (150-400); Red Blood Cell Count 4.69 X10^6/uL (4.5-5.9); Red Cell Distribution Width 14.6 % (11.6-14.8); White Blood Cell Count 4.5 X10^3/uL (4.5-11.0)
[2023-02-04 09:15] LABS: Alanine Aminotransferase 25 IU/L (<50); Albumin 4.4 g/dL (3.5-5.0); Albumin Globulin Ratio 1.4 (1.0-2.8); Alkaline Phosphatase 30 U/L (38-126); Aspartate Aminotransferase 26 IU/L (17-59); Bilirubin Total 0.6 mg/dL (0.2-1.3); Blood Urea Nitrogen 27 mg/dL (9-20); Calcium 9.5 mg/dL (8.4-10.2); Carbon Dioxide 31 mmol/L (22-32); Chloride 101 mmol/L (98-107); Cholesterol 194 mg/dL (140-199); Estimated Glomerular Filt Rate > 60 mL/min (>60); Globulin 3.1 g/dL (1.7-4.1); Glucose 109 mg/dL (80-110); HDL Cholesterol 51 mg/dL (40-60); HEMOLYSIS < 15 (0-50); LDL Cholesterol Calculated 100 mg/dL (<100); Potassium 4.7 mmol/L (3.4-5.1); Sodium 139 mmol/L (137-145); Total Protein 7.5 g/dL (6.3-8.2); Triglycerides 217 mg/dL (35-150)
[2023-02-04 09:21] LABS: Microalbumi Creatinin Ratio Ur 8.2 ug/mg CR (<30); Microalbumin Urine Random 1.2 mg/dL (0-1.6)
[2023-02-04 09:27] LABS: TSH w/ Reflex to FT4 2.17 uIU/mL (0.47-4.68)
[2023-02-05 08:13] LABS: Labcorp Hemoglobin (Hb) A1c 5.7 % (4.8-5.6)
== END ==
PROVIDERS: PCP Registered Nurse Diabetes Educator; Referring Provider Registered Nurse Diabetes Educator; Visit Provider Registered Nurse Diabetes Educator
DX: I10 Essential (primary) hypertension (principal); E78.5 Hyperlipidemia, unspecified; E11.9 Type 2 diabetes mellitus without complications; R94.4 Abnormal results of kidney function studies
CPT/HCPCS: 36415; 80053; 80061; 82043; 82570; 83036; 84443; 85027

== ENCOUNTER 2023-05-11 08:17 | Emergency (ER) | payer MEDICARE, OTHER, SELFPAY ==
[2021-05-22 10:42] VITALS: BMI 30.9
[2023-05-11] VITALS (8 sets, daily range): BP systolic 158–178; BP diastolic 103–112; PULSE 83–95; RESP 17; TEMP 36.6; O2SAT 94–97; BMI 30.8
--- NOTE | 2023-05-11 08:30 | DI.CT.S_ITS ---
PROCEDURE: CT ABDOMEN PELVIS W CON INDICATIONS: LUQ/LLQ ABD PAIN, HX DIVERTICULITIS TECHNIQUE: After the administration of oral and IV contrast, axial sections were acquired from the lung bases to the pubic symphysis. Coronal and sagittal reformats were performed. For radiation dose reduction, the following was used: automated exposure control, adjustment of mA and/or kV according to patient size. COMPARISON: [facility], CT, CT ABDOMEN PELVIS W CON, 05/12/2020, 7:52. FINDINGS: Image quality: Excellent. Lung bases: Unremarkable. Heart: No significant findings. ABDOMEN: Liver: Diffuse fatty liver infiltration is noted. No focally suspicious liver lesion is seen. Gallbladder: Removed. Biliary ducts: Unremarkable. Pancreas: Unremarkable. Spleen: Unremarkable. Adrenal Glands: Unremarkable. Kidneys and Ureters: Simple right renal cysts are seen. Smaller presumed cysts are seen of the left kidney. The kidneys demonstrate normal size and enhance symmetrically. There is no hydronephrosis. Stomach and Bowel: There is moderate wall thickening seen of the entire colon, beginning at the level of the cecum and continuing through the rectum. This is overall worst within the sigmoid colon. Moderate diverticular formation can be seen within the sigmoid colon. No dilated loops of small bowel are seen. A normal appendix is noted. The stomach is decompressed at the time of this study, limiting its evaluation. Peritoneum: No peritoneal abscess is seen. No abnormal intraperitoneal fluid. No free air. Ventral Wall: No hernia. The previously seen anterior abdominal wall hernias are no longer seen. Abdominal Nodes: No retroperitoneal or mesenteric adenopathy by size criteria. Vessels: Aorta and inferior vena cava are normal in size. PELVIS: Pelvic Organs: Unremarkable. Bladder: Moderate generalized bladder wall thickening is seen. The bladder is decompressed, which limits its evaluation. Pelvic Nodes: No enlarged lymph nodes. Miscellaneous: There is a fat containing left inguinal hernia. Bones: Mild levoconvex scoliotic curvature is noted. Moderate lumbar spine degenerative change is seen. Milder degenerative changes are seen elsewhere. This patient has transitional lumbar anatomy. For the purposes of this examination, the level with the last pair of ribs is considered to be T12. By this numbering scheme, the L5 level is transitional and highly sacralized IMPRESSION: Moderate generalized colonic wall thickening can be seen. Please correlate with potential infectious and inflammatory causes of colitis, including C. difficile colitis. (Although there is diverticula formation seen distally, this process is not attributed to diverticulitis.) No findings of perforation or abscess can be seen. 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 on 05/11/2023 at 8:31 Approved by: Vic Lorenz M.D. on 05/11/2023 at 8:36
[2023-05-11 08:41] LABS: Add Manual Diff / Slide Review NO; Basophils Absolute Auto 0 /uL (0-100); Basophils Percent Auto 0.5 % (0-2); Eosinophils Absolute Auto 100 /uL (0-450); Eosinophils Percent Auto 1.3 % (2-4); Hematocrit 44.6 % (41-53); Hemoglobin 15.4 g/dL (13.5-17.5); Ictotest Urine Negative (Negative); Lymphocytes Absolute Auto 1500 /uL (1100-4500); Mean Corpuscular HGB Conc 34.5 % (30-36); Mean Corpuscular Hemoglobin 31.9 PG (26-34); Mean Corpuscular Volume 92.3 fL (80-100); Monocytes Absolute Auto 600 /uL (0-900); Monocytes Percent Auto 9.9 % (3-14); Neutrophils Absolute Auto 3500 /uL (1500-7000); Neutrophils Percent Auto 62.3 % (50-75); Platelet Count 210 X10^3/uL (150-400); Red Blood Cell Count 4.83 X10^6/uL (4.5-5.9); Red Cell Distribution Width 13.9 % (11.6-14.8); White Blood Cell Count 5.6 X10^3/uL (4.5-11.0)
[2023-05-11 08:56] LABS: Alanine Aminotransferase 31 IU/L (<50); Albumin 4.6 g/dL (3.5-5.0); Albumin Globulin Ratio 1.5 (1.0-2.8); Alkaline Phosphatase 31 U/L (38-126); Aspartate Aminotransferase 32 IU/L (17-59); BUN Creatinine Ratio 19.6 (6-22); Bilirubin Total 0.7 mg/dL (0.2-1.3); Blood Urea Nitrogen 20 mg/dL (9-20); Calcium 9.4 mg/dL (8.4-10.2); Carbon Dioxide 24 mmol/L (22-32); Chloride 104 mmol/L (98-107); Estimated Glomerular Filt Rate > 60 mL/min (>60); Globulin 3.1 g/dL (1.7-4.1); Glucose 125 mg/dL (80-110); HEMOLYSIS 17 (0-50); Lipase 84 U/L (23-300); Sodium 137 mmol/L (137-145); Total Protein 7.7 g/dL (6.3-8.2)
--- NOTE | 2023-05-11 09:38 | ED_ITS ---
HPI - Abdominal Pain General Chief Complaint: Abdominal Pain Stated Complaint: pain LT side flank T-3 Time Seen by Provider: 05/11/23 08:22 Source: patient Mode of arrival: Ambulatory History of Present Illness HPI narrative: 72yoM with PMH pre-diabetes presents for L upper and lower abdominal pain x 3 days. Feels similar to when he had diverticulitis several years ago. Denies fever, vomiting, nausea, constipation, diarrhea, other complaints Related Data Home Medications Medication Instructions Recorded Confirmed apixaban 5 mg tablet (Eliquis) 5 mg PO BID 01/13/23 05/11/23 Previous Rx's Medication Instructions Recorded One Touch Verio Test Strips #100 ea 01/15/21 esomeprazole magnesium 20 mg 20 mg PO DAILY #90 caps 02/10/23 capsule,delayed release fenofibrate 160 mg tablet 160 mg PO DAILY #90 tabs 02/10/23 metformin 1,000 mg tablet 1,000 mg PO BID #180 tabs 02/10/23 sitagliptin phosphate 50 mg tablet 50 mg PO DAILY #90 tabs 02/10/23 (Januvia) amoxicillin 875 mg-potassium 1 tab PO BID #20 tabs 05/11/23 clavulanate 125 mg tablet Allergies Allergy/AdvReac Type Severity Reaction Status Date / Time pneumococcal vaccine Allergy Verified 02/10/23 10:34 Review of Systems Review of Systems Narrative: Reports: abdominal pain (L upper and L lower) All other ROS negative Patient History Medical History Actinic keratosis Diabetes (2009) Diverticulosis of sigmoid colon GERD (gastroesophageal reflux disease) History of deep venous thrombosis (DVT) of distal vein of left lower extremity History of DVT of lower extremity Hypertension (2006) Insomnia Low back pain (1999) Melanoma (2009) Restless leg syndrome Surgical History History of umbilical hernia repair (04/25/19) Status post cholecystectomy (2014) Family History Father CAD (coronary artery disease) Mother Breast cancer Grandfather No problems noted. Grandmother No problems noted. Grandfather No problems noted. Grandmother No problems noted. Social History household members: spouse Smoking Status: Former smoker Tobacco: How many years used: 20 second hand exposure: No alcohol intake: current substance use type: does not use Smoking Status: Former smoker alcohol intake frequency: 0-2 drinks per day Substance Use Type: does not use Exam Initial Vital Signs Initial Vital Signs: Vital Signs Pulse Rate 94 H 05/11/23 08:22 Pulse Oximetry 97 05/11/23 08:22 Const General: cooperative, healthy appearing and comfortable GI Palpation: soft, No no hepatosplenomegaly, No firm, No guarding, No hepatomegaly, No rigid and other Other: L upper and L lower tenderness to deep palpation. Skin General: no rashes or lesions noted and turgor normal Course Course Course Narrative: Well appearing patient with abdominal pain similar to diverticulitis. Abdomen is soft, hemodynamically stable. Will obtain labs and CT imaging. Orders Ordered: Discontinued Medications Ketorolac Tromethamine (Ketorolac 30 Mg/Ml Vial) 15 mg IV NOW ONE Stop: 05/11/23 09:45 Last Admin: 05/11/23 09:56 Dose: 15 mg Documented By: LULA Ondansetron HCl (Ondansetron 4 Mg/2 Ml Inj) 4 mg IV NOW PRN PRN Reason: Nausea And Vomiting Ondansetron HCl (Ondansetron 4 Mg Odt) 4 mg PO NOW PRN PRN Reason: Nausea And Vomiting Reevaluation(s) Reevaluation #1: Labs unremarkable. CT shows colitis. Since patient is older and has had persistent pain for 3 days will treat with augmentin. Patient counseled on stool softeners. Patient stated that he would follow up with his GI doctor - he had a colonoscopy within the last 5 years and was told it was clear, but will call to schedule a follow up appointment. ED return precautions discussed at bedside. Vital Signs Vital signs: Vital Signs - 8 hr 05/11/23 08:25 Temperature 97.9 F Pulse Rate 95 H Respiratory Rate 17 Blood Pressure 158/103 H Pulse Oximetry 95 Oxygen Delivery Method Room Air MDM - Abdominal Pain Lab Data 05/11/23 08:34 05/11/23 08:34 Labs: Lab Results 05/11/23 05/11/23 05/11/23 Range/Units 08:34 08:34 08:34 WBC 5.6 (4.5-11.0) X10^3/uL RBC 4.83 (4.5-5.9) X10^6/uL Hgb 15.4 (13.5-17.5) g/dL Hct 44.6 (41-53) % MCV 92.3 (80-100) fL MCH 31.9 (26-34) PG MCHC 34.5 (30-36) % RDW 13.9 (11.6-14.8) % Plt Count 210 (150-400) X10^3/uL Neut % (Auto) 62.3 (50-75) % Lymph % (Auto) 26.0 (25-40) % [place] % (Auto) 9.9 (3-14) % Eos % (Auto) 1.3 L (2-4) % Baso % (Auto) 0.5 (0-2) % Neut # (Auto) 3500 (0280-4798) /uL Lymph # (Auto) 1500 (8693-5520) /uL [place] # (Auto) 600 (0-900) /uL Eos # (Auto) 100 (0-450) /uL Baso # (Auto) 0 (0-100) /uL Sodium 137 (137-145) mmol/L Potassium 4.0 (3.4-5.1) mmol/L Chloride 104 (98-107) mmol/L Carbon Dioxide 24 (22-32) mmol/L BUN 20 (9-20) mg/dL Creatinine 1.02 (0.66-1.25) mg/dL Estimated GFR > 60 (>60) mL/min BUN/Creatinine Ratio 19.6 (6-22) Glucose 125 H (80-110) mg/dL Calcium 9.4 (8.4-10.2) mg/dL Total Bilirubin 0.7 (0.2-1.3) mg/dL AST 32 (17-59) IU/L ALT 31 (<50) IU/L Alkaline Phosphatase 31 L (38-126) U/L Total Protein 7.7 (6.3-8.2) g/dL Albumin 4.6 (3.5-5.0) g/dL Globulin 3.1 (1.7-4.1) g/dL Albumin/Globulin Ratio 1.5 (1.0-2.8) Lipase 84 (23-300) U/L Ur Bilirubin Confirm Negative (Negative) Point of care testing: Urine Dip Bedside Urine Glucose Negative Bedside Urine Bilirubin + 1 Bedside Urine Ketone - Negative Urine Specific [place] 1.025 Bedside Urine Occult Blood - Negative Bedside Urine pH 5.5 Bedside Urine Protein +/- 15 Bedside Urine Urobilinogen - Negative Bedside Urine Nitrite - Negative Bedside Urine Leukocytes - Negative Esterase Discharge Plan Departure Patient Disposition: Home Clinical Impression: Colitis Instructions: DI for Colitis Prescriptions: New amoxicillin-pot clavulanate 875-125 mg tablet 1 tab PO BID Qty: 20 0RF No Action Eliquis 5 mg tablet 5 mg PO BID fenofibrate 160 mg tablet 160 mg PO DAILY Qty: 90 3RF esomeprazole magnesium 20 mg capsule,delayed release(DR/EC) 20 mg PO DAILY Qty: 90 3RF metformin 1,000 mg tablet 1,000 mg PO BID Qty: 180 3RF Januvia 50 mg tablet 50 mg PO DAILY Qty: 90 3RF (DME) One Touch Verio Test Strips Qty: 100 5RF Dose Instruction: As directed Rx Instructions: Test blood sugar three times daily Referrals: Joaquin Gee ARNP [Primary Care Provider] - Stand Alone Forms: Patient Portal/API
[2023-05-11] MEDS: KETOROLAC 30 MG/ML VIAL 15 MG IV (09:56)
== END 2023-05-11 10:04 | disposition home or self-care (01) ==
PROVIDERS: Emergency Provider Emergency Medicine; PCP Registered Nurse Diabetes Educator
DX: K52.9 Noninfective gastroenteritis and colitis, unspecified (principal)
CPT/HCPCS: 36415; 74177; 80053; 81003; 83690; 85025; 96374; 99284; J1885; Q9967

== ENCOUNTER → 2023-05-14 07:13 | Outpatient (CLI) | payer MEDICARE, OTHER, SELFPAY ==
[2021-05-22 10:42] VITALS: BMI 30.9
[2023-05-14 08:21] LABS: Hemoglobin A1C% w Est Avg Glu 5.4 % (4.0-6.0)
[2023-05-14 08:34] LABS: Cholesterol 197 mg/dL (140-199); HDL Cholesterol 46 mg/dL (40-60); LDL Cholesterol Calculated 106 mg/dL (<100); Triglycerides 227 mg/dL (35-150)
== END ==
PROVIDERS: PCP Registered Nurse Diabetes Educator; Referring Provider Registered Nurse Diabetes Educator; Visit Provider Registered Nurse Diabetes Educator
DX: E11.9 Type 2 diabetes mellitus without complications (principal); E78.5 Hyperlipidemia, unspecified
CPT/HCPCS: 36415; 80061; 83036

== ENCOUNTER → 2024-05-10 07:41 | Outpatient (CLI) | payer MEDICARE, OTHER, SELFPAY ==
[2021-05-22 10:42] VITALS: BMI 30.9
[2024-05-10 08:49] LABS: Hematocrit 43.9 % (41-53); Hemoglobin 14.7 g/dL (13.5-17.5); Mean Corpuscular HGB Conc 33.4 % (30-36); Mean Corpuscular Volume 95.6 fL (80-100); Platelet Count 225 X10^3/uL (150-400); Red Blood Cell Count 4.59 X10^6/uL (4.5-5.9); Red Cell Distribution Width 14.1 % (11.6-14.8)
[2024-05-10 09:08] LABS: Alanine Aminotransferase 21 IU/L (<50); Albumin 4.5 g/dL (3.5-5.0); Albumin Globulin Ratio 1.7 (1.0-2.8); Aspartate Aminotransferase 38 IU/L (17-59); BUN Creatinine Ratio 23.9 (6-22); Bilirubin Total 0.9 mg/dL (0.2-1.3); Blood Urea Nitrogen 28 mg/dL (9-20); Calcium 9.7 mg/dL (8.4-10.2); Carbon Dioxide 23 mmol/L (22-32); Chloride 108 mmol/L (98-107); Cholesterol 174 mg/dL (140-199); Estimated Glomerular Filt Rate > 60 mL/min (>60); Globulin 2.7 g/dL (1.7-4.1); Glucose 110 mg/dL (80-110); HDL Cholesterol 67 mg/dL (40-60); LDL Cholesterol Calculated 74 mg/dL (<100); Sodium 140 mmol/L (137-145); Total Protein 7.2 g/dL (6.3-8.2); Triglycerides 163 mg/dL (35-150)
[2024-05-10 09:09] LABS: Alkaline Phosphatase < 20 U/L (38-126); HEMOLYSIS 158 (0-50); Potassium 5.8 mmol/L (3.4-5.1)
[2024-05-10 09:25] LABS: Creatinine Urine Random 178.07 mg/dL
[2024-05-10 09:31] LABS: Microalbumin Urine Random 2.3 mg/dL (0-1.6)
[2024-05-10 09:41] LABS: TSH w/ Reflex to FT4 1.14 uIU/mL (0.47-4.68)
[2024-05-10 14:13] LABS: Hemoglobin A1C% w Est Avg Glu 5.3 % (4.0-6.0)
== END ==
PROVIDERS: PCP Registered Nurse Diabetes Educator; Referring Provider Registered Nurse Diabetes Educator; Visit Provider Registered Nurse Diabetes Educator
DX: I10 Essential (primary) hypertension (principal); E11.9 Type 2 diabetes mellitus without complications; E78.5 Hyperlipidemia, unspecified
CPT/HCPCS: 36415; 80053; 80061; 82043; 82570; 83036; 84443; 85027

== ENCOUNTER → 2024-05-20 09:33 | Outpatient (CLI) | payer MEDICARE, OTHER, SELFPAY ==
[2021-05-22 10:42] VITALS: BMI 30.9
[2024-05-20 11:18] LABS: BUN Creatinine Ratio 20.9 (6-22); Blood Urea Nitrogen 23 mg/dL (9-20); Carbon Dioxide 27 mmol/L (22-32); Chloride 103 mmol/L (98-107); Estimated Glomerular Filt Rate > 60 mL/min (>60); Glucose 104 mg/dL (80-110); HEMOLYSIS < 15 (0-50); Potassium 5.1 mmol/L (3.4-5.1); Sodium 137 mmol/L (137-145)
== END ==
PROVIDERS: PCP Registered Nurse Diabetes Educator; Referring Provider Registered Nurse Diabetes Educator; Visit Provider Registered Nurse Diabetes Educator
DX: E87.5 Hyperkalemia (principal)
CPT/HCPCS: 36415; 80048

== ENCOUNTER → 2025-01-03 07:07 | Outpatient (CLI) | payer MEDICARE, OTHER, SELFPAY ==
[2021-05-22 10:42] VITALS: BMI 30.9
[2025-01-03 08:22] LABS: Hematocrit 42.5 % (41-53); Hemoglobin 14.4 g/dL (13.5-17.5); Mean Corpuscular Hemoglobin 32.1 PG (26-34); Mean Corpuscular Volume 94.5 fL (80-100); Platelet Count 213 X10^3/uL (150-400); Red Blood Cell Count 4.49 X10^6/uL (4.5-5.9); White Blood Cell Count 4.1 X10^3/uL (4.5-11.0)
[2025-01-03 08:51] LABS: Alanine Aminotransferase 21 IU/L (<50); Albumin 4.5 g/dL (3.5-5.0); Albumin Globulin Ratio 1.9 (1.0-2.8); Alkaline Phosphatase 27 U/L (38-126); Aspartate Aminotransferase 27 IU/L (17-59); BUN Creatinine Ratio 20.9 (6-22); Bilirubin Total 0.7 mg/dL (0.2-1.3); Blood Urea Nitrogen 24 mg/dL (9-20); Calcium 9.7 mg/dL (8.4-10.2); Carbon Dioxide 27 mmol/L (22-32); Chloride 105 mmol/L (98-107); Cholesterol 195 mg/dL (140-199); Estimated Glomerular Filt Rate > 60 mL/min (>60); Globulin 2.4 g/dL (1.7-4.1); Glucose 102 mg/dL (70-99); HDL Cholesterol 61 mg/dL (40-60); HEMOLYSIS < 15 (0-50); LDL Cholesterol Calculated 101 mg/dL (<100); Sodium 140 mmol/L (137-145); Total Protein 6.9 g/dL (6.3-8.2); Triglycerides 166 mg/dL (35-150)
[2025-01-03 08:57] LABS: Hemoglobin A1C% w Est Avg Glu 5.5 % (4.0-6.0)
[2025-01-03 09:16] LABS: Potassium 5.4 mmol/L (3.4-5.1)
[2025-01-03 09:24] LABS: Creatinine Urine Random 95.23 mg/dL
[2025-01-03 09:26] LABS: TSH w/ Reflex to FT4 1.03 uIU/mL (0.47-4.68)
[2025-01-03 09:28] LABS: Microalbumin Urine Random 2.7 mg/dL (0-1.6)
== END ==
PROVIDERS: PCP Registered Nurse Diabetes Educator; Referring Provider Registered Nurse Diabetes Educator; Visit Provider Registered Nurse Diabetes Educator
DX: I10 Essential (primary) hypertension (principal); E11.9 Type 2 diabetes mellitus without complications; E78.5 Hyperlipidemia, unspecified; Z86.718 Personal history of other venous thrombosis and embolism
CPT/HCPCS: 36415; 80053; 80061; 82043; 82570; 83036; 84443; 85027

== ENCOUNTER → 2025-05-24 07:01 | Outpatient (CLI) | payer MEDICARE, OTHER, SELFPAY ==
[2021-05-22 10:42] VITALS: BMI 30.9
[2025-05-24 08:37] LABS: Blood Urea Nitrogen 20 mg/dL (9-20); Calcium 9.4 mg/dL (8.4-10.2); Carbon Dioxide 23 mmol/L (22-32); Chloride 104 mmol/L (98-107); Estimated Glomerular Filt Rate > 60 mL/min (>60); Glucose 102 mg/dL (70-99); HEMOLYSIS < 15 (0-50); Potassium 4.6 mmol/L (3.4-5.1); Sodium 138 mmol/L (137-145)
== END ==
PROVIDERS: PCP Registered Nurse Diabetes Educator; Referring Provider Registered Nurse Diabetes Educator; Visit Provider Registered Nurse Diabetes Educator
DX: E87.5 Hyperkalemia (principal)
CPT/HCPCS: 36415; 80048